=== PATIENT | female | born 1950 | race Caucasian/White ===

== ENCOUNTER 2018-07-28 20:39 | Inpatient (IN) ==
[2018-07-29] MEDS ORDERED: *HR* Dextrose 50 % in Water (Syg) 50 ML SYRINGE IVP PRN (04:09)
[2018-07-29] MEDS ORDERED: Dextrose Gel 15 GM/37.5 ML TUBE PO PRN ×2 (04:09)
[2018-07-29] MEDS ORDERED: Naloxone 0.4 MG/ML INJ IVP PRN (04:09)
[2018-07-29] MEDS ORDERED: D5% in Water 1,000 ML IVC PRN (04:09)
--- NOTE | 2018-07-29 04:24 | Internal Med History&Physical ---
Date of Encounter: 07/29/18 Time of Encounter: 03:30 Internal Medicine - H&P: HPI Chief complaint: toe ulcer Admitted From: Hospital to Hospital Transfer Plans for Post Hospital Care: Transfer [facility] Facility History of present illness: Ms. Armenta is a 68 year old female who presents in transfer [facility] for concerns of diabetic foot ulcer/toe ulcer. She was due to be admitted yesterday from the ER per clinical rehab liaison request. However, there were no beds available and patient did not want to wait in ER. She therefore returned back to [facility] where she resides. Her PCP sent her back to ER in [place] earlier today requesting transfer to [facility] for ongoing antibiotics and podiatry consultation. I received a call from [facility] ER requesting transfer. Once patient arrived from [place], I saw her at the bedside. She appears dry, but she is nontoxic. She denies any fevers or chills. She states she has had this toe ulcer for quite some time. She failed oral antibiotics and was due to start IV antibiotics per clinical rehab liaison request. However, she has not yet been admitted since then. She does have peripheral vascular disease and had a left BKA years ago. She is on oral diabetic agents and insulin as well. Her kidney function is impaired compared to her baseline. She denies any recent hypoglycemic episodes. Past Med Surg Social Fam HX - Past Medical History Attestation: Yes The following information was validated with the patient. Source: patient, old records reviewed Medical history: coronary artery disease, diabetes, hyperlipidemia, hypertension, myocardial infarction, peripheral artery disease, thyroid disease, TIA Psychiatric history: depression - Past Surgical History Surgical History: appendectomy, carotid endarterectomy, hysterectomy, other Additional surgical history: LBKA - Social History Smoking Status: Former smoker Smokeless Tobacco Status: No Alcohol use: none Drug use: none Current living situation: [facility] Recent Out of Country Travel Within the Last 8 Weeks: No Exposure or Possible Exposure to Illness During Travel: No - Family History Mother Adopted: No Family Member Ethnicity: Non- Living Status: Hx Family Cardiac Disorders: Yes Hx Family Respiratory Disorders: No Hx Family Cancer: No Hx Family GI Disorders: Yes (Diverticulosis) Hx Family Endocrine Disorder: No Hx Family Neuromuscular Disorders: No Hx Family Neurologic Disorders: No Hx Family HEENT Disorders: No Hx Family Autoimmune Disorders: No Internal Medicine - H&P: Meds Apixaban [Eliquis] 5 mg PO BID tablet 07/02/15 [Rx] Gabapentin [Neurontin] 100 mg PO TID #30 capsule 07/02/15 [Rx] Fluticasone Propionate Nasal [Flonase] 2 spray NS BID 10/16/15 [History] Metoprolol [Lopressor] 50 mg PO DAILY 10/16/15 [History] Folic Acid 1 tab PO DAILY #30 tablet 11/14/15 [Rx] Acetaminophen [Non-Aspirin] 650 mg PO Q4H PRN 05/29/16 [History] Acetaminophen [Acetaminophen ER] 650 mg PO HS 09/17/16 [History] Allopurinol [Zyloprim 300 MG] 300 mg PO DAILY 09/17/16 [History] Escitalopram [Lexapro] 5 mg PO DAILY 09/17/16 [History] Ferrous Sulfate [Iron] 325 mg PO DAILY 09/17/16 [History] GlipiZIDE XL (24 HR) [Glucotrol XL] 20 mg PO 0800 09/17/16 [History] Atorvastatin [Lipitor] 40 mg PO HS 03/24/17 [History] Cholecalciferol (Vitamin D3) [Vitamin D] 50,000 unit PO Q14D 03/24/17 [History] Potassium Chloride [Klor-Con Sprinkle] 10 meq PO DAILY 03/24/17 [History] Amlodipine Besylate 5 mg PO DAILY 06/23/17 [History] Bisacodyl [Dulcolax] 10 mg PO DAILY PRN 09/22/17 [History] Insulin DETEMIR [Levemir] 10 unit SQ HS 09/22/17 [History] Ipratropium/Albuterol Neb [Duoneb] 3 ml IH QID PRN 09/22/17 [History] Allopurinol [Zyloprim 100 MG] 100 mg PO DAILY 03/29/18 [History] Furosemide [Lasix] 80 mg PO BID 03/29/18 [History] Levothyroxine [Synthroid] 112 mcg PO DAILY 03/29/18 [History] Multivitamin,Stress Formula/Zn [Stress B with Zinc Tablet] 1 each PO DAILY 03/29/18 [History] Spironolactone [Aldactone] 25 mg PO DAILY 03/29/18 [History] Allergy/AdvReac Type Severity Reaction Status Date / Time Penicillins [PCN] Allergy Rash Verified 03/29/18 15:07 - Constitutional Constitutional: fatigue, weakness, no chills, no fever(s), no night sweats - EENT Eyes: no blurry vision, no change in vision Ears: no ear pain, no tinnitus Nose, mouth and throat: no nasal congestion, no sore throat - Cardiovascular Cardiovascular ROS IM: no chest pain, no dyspnea - Respiratory Respiratory: no cough, no chest congestion, no excessive phlegm production, no change in phlegm color - Gastrointestinal Gastrointestinal: no abdominal pain, no diarrhea, no hematemesis, no hematochezia, no melena, no nausea, no vomiting - Genitourinary Genitourinary: no dysuria, no flank pain, no hematuria - Musculoskeletal Musculoskeletal ROS IM: arthralgias, no back pain - Integumentary Integumentary IM: skin ulcer (right 2nd toe), no rash, no jaundice - Neurological Neurological ROS: no dizziness, no focal weakness, no frequent falls, no headache(s) - Psychiatric Psychiatric: no anxiety, no depression - Endocrine Endocrine IM: no polydipsia, no polyphagia, no polyuria - Allergic/Immunologic Allergic/Immunologic: no GI upset with certain foods - Constitutional General appearance: Present: cooperative, A&O X 3, pleasant, no acute distress, answers questions appropriately Exam: looks dry - Head Head exam: Present: atraumatic, normal inspection - Eye Eye exam: Present: EOMI, PERRL. Absent: scleral icterus Pupils: Present: normal accommodation - ENT ENT exam: Present: mucous membranes dry, normal exam, normal oropharynx - Neck Neck exam general surgery: Present: full ROM, supple. Absent: tenderness, nuchal rigidity, thyromegaly - Respiratory Respiratory exam: Present: CTAB. Absent: chest wall tenderness, rales, rhonchi, wheezes - Cardiovascular Cardiovascular exam: Present: distant heart sounds, +S1, +S2. Absent: diastolic murmur, systolic murmur - GI/Abdominal GI/Abdominal exam: Present: normal bowel sounds, soft. Absent: guarding, hepatomegaly, mass, rebound, splenomegaly, tenderness - Extremities Exam Extremities exam: Present: full ROM, warm, radial pulses palpable and symmetrical. Absent: calf tenderness, normal capillary refill Additional comments: left/toe dressed and wrapped - Back Exam Back exam: Absent: CVA tenderness (L), CVA tenderness (R) - Neurological Exam Neurological exam: Present: alert, CN II-XII intact, oriented X3 Additional comments: decreased sensation in both feet -- chronic (neuropathy) - Psychiatric Psychiatric exam: Present: normal affect, normal mood - Skin Skin exam: Present: dry, intact, warm Internal Med - H&P Results - Labs Labs: I reviewed her labs from [facility] they include the following: WBC 13.7 Hemoglobin 13.0 Hematocrit 39.3 Platelet count 340 PT 21.1 INR 1.9 PTT 44.1 Sodium 130 Potassium 3.9 Chloride 93 Carbon dioxide 26 BUN 51 Creatinine 2.12 - Diagnostic Studies Other Images Additional comments: Toe xray -- soft tissue swelling right 2nd toe - Assessment and plan (1) Toe ulcer due to DM Current Visit: Yes Status: Acute Assessment and plan: 1. Will order blood and wound cultures. 2. Will place on IV Zyvox and Levaquin. 3. Consult podiatry. 4. May need MRI imaging. Qualifiers: Diabetes mellitus type: type 2 Laterality: right Non-pressure ulcer stage: unspecified non-pressure ulcer stage Qualified Code(s): E11.621 - Type 2 diabetes mellitus with foot ulcer; L97.519 - Non-pressure chronic ulcer of other part of right foot with unspecified severity (2) BRET (acute kidney injury) Current Visit: Yes Status: Acute Assessment and plan: 1. Will hydrate with IVF and old diuretics for now. 2. Monitor renal function and consult nephrology if fails to improve. (3) Diabetes mellitus, type 2 Current Visit: Yes Status: Chronic Assessment and plan: 1. Hold oral home meds. 2. Will place on SSI and resume basal insulin once meds verified. 3. Monitor glucose and adjust dosing as necessary. 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 No active angina. 2. Will place on telemetry and order baseline EKG. 3. Continue home meds as appropriate. Qualifiers: Coronary Disease-Associated Artery/Lesion type: [place] artery [place] vs. transplanted heart: [place] heart Associated angina: without angina Qualified Code(s): I25.10 - Atherosclerotic heart disease of [place] coronary artery without angina pectoris (5) DVT prophylaxis Current Visit: Yes Status: Acute Assessment and plan: 1. Heparin SQ.
[2018-07-29] MEDS ORDERED: Levofloxacin 750 MG/150 ML 750 MG/150 ML BAG IVPB SCH (05:00)
[2018-07-29 05:35] LABS: Basophils # 0.2 K/mcL (0.0-0.2); Basophils % 1.2 %; Eosinophils # 0.6 K/mcL (0.0-0.6); Eosinophils % 4.6 %; Hematocrit 35.9 % (35.3-44.9); Hemoglobin 11.5 g/dL (11.5-15.4); Immature Granulocytes % 1.9 % (0-4); Lymphocytes % 7.7 %; Mean Corpuscular Volume 96.8 fL (83.0-100.0); Mean Platelet Volume 12.1 fL (9.4-12.4); Monocytes # 0.8 K/mcL (0.0-1.3); Monocytes % 5.7 %; Neutrophils # 10.6 K/mcL (1.6-8.9); Platelet Count 303 K/mcL (140-400); Red Blood Count 3.71 M/mcL (3.82-4.97); Red Cell Distribution Width 15.3 % (11.5-14.5); Segmented Neutrophils % 78.9 %
[2018-07-29] MEDS: 0.9 % Sodium Chloride 1,000 ML IVC SCH ×2 (05:41→16:32)
[2018-07-29 05:43] LABS: INR 1.9; Prothrombin Time 20.9 Seconds (9.4-12.1)
[2018-07-29 05:46] LABS: Activated Partial Thrombo Time 40.6 Seconds (26.0-36.0)
[2018-07-29 06:48] LABS: Albumin 3.3 g/dL (3.5-5.7); Albumin/Globulin Ratio 0.9 (1.1-2.2); Bilirubin,Total 0.4 mg/dL (0.3-1.0); Calcium 9.5 mg/dL (8.6-10.3); Globulin 3.5 g/dL (2.4-3.5); Magnesium 2.3 mg/dL (1.6-2.6); Potassium 3.6 mEq/L (3.5-5.1); Total Protein 6.8 g/dL (6.4-8.9)
[2018-07-29] MEDS: *HR* Heparin 5,000 UNIT/ML VIAL SQ SCH ×2 (06:50→18:28)
--- NOTE | 2018-07-29 07:55 | Internal Med Progress Note ---
<Maria L Baltazar - Last Filed: 07/29/18 13:57> Hospitalist Progress Note - Encounter Date of Encounter: 07/29/18 - Exam Vitals: Temp Pulse Resp BP Pulse Ox 98.3 F 63 14 112/66 94 07/29/18 10:16 07/29/18 10:16 07/29/18 10:16 07/29/18 10:16 07/29/18 10:16 - Assessment and Plan (1) DVT prophylaxis Current Visit: Yes Status: Acute (2) BRET (acute kidney injury) Current Visit: Yes Status: Acute (3) CAD (coronary artery disease) Current Visit: Yes Status: Chronic (4) Diabetes mellitus, type 2 Current Visit: Yes Status: Chronic (5) Toe ulcer due to DM Current Visit: Yes Status: Acute - Time Spent with Patient Total time spent is greater than 50% in coordination of care (as documented) at patient's floor/unit and/or counseling patient: Internal Medicine: Result - Labs CBC & Chem 7: 07/29/18 05:14 07/29/18 05:14 Labs: Short CBC 07/29/18 Range/Units 05:14 WBC 13.4 H (4.3-11.1) K/mcL Hgb 11.5 D (11.5-15.4) g/dL Hct 35.9 (35.3-44.9) % Plt Count 303 (140-400) K/mcL Neutrophils # 10.6 H (1.6-8.9) K/mcL BMP 07/29/18 05:14 Sodium 134 L Potassium 3.6 Chloride 98 Carbon Dioxide 25 BUN 52 H Creatinine 1.97 H Glucose 135 H Calcium 9.5 Liver Function 07/29/18 Range/Units 05:14 Total Bilirubin 0.4 (0.3-1.0) mg/dL AST 16 (13-39) Units/L ALT 14 (7-52) Units/L Alkaline Phosphatase 87 (34-104) Units/L Albumin 3.3 L (3.5-5.7) g/dL - ABG Interpretation ABG results: PT/INR, D-dimer PT 20.9 Seconds (9.4-12.1) H 07/29/18 05:14 Consult Discharge Plan - Plan Referrals: NONE,PCP [Primary Care Provider] - - Attending Attestation The history, physical exam, and medical decision making was performed by medical student Kerri either while I was physically present and actively involved or I personally re-performed the exam and medical decision making. I have verified the accuracy of the medical student's documentation with regards to the history, physical exam findings, and medical decision making. Ms Armenta has pmhx CAD, DM, HTN, Hypothyroidism and presented with diabetic foot/toe ulcer refractory to outpt treatment She is admitted for toe ulcer/cellulitis RLE and iv abx awake, no pain in foot/toe/leg. denies fevers, chills. she is unaware of drainage from wound but was told by staff it looked like pus. Clean dry dressing now in place. no nausea, emesis. She is unaware of any home meds. gen- alert, awake,appears stated age eyes- pupils equal round cv- reg rate and rhythm, normal s1,s2, no murmurs appreciated, no le edema, warm extremities, palpable RLE pulses, LLE has BKA and cannot assess lungs- ctabl, no wheezing, rhonchi or crackles, normal resp effort on ra abd- soft, non tender, non distended, + bs skin: RLE dressing c/d/i, mild erythmea right tyler, no pain to palpation, no increased warmth neuro- AAOx3, CN grossly intact, no focal deficits Toe Ulcer due to DM/RLE cellullitis- blood and wound cxs pending, podiatry consult pending, will renal dose vanc and begin cefepime as we have received updated info as to outpt med trials, given hx pvd check CODY tpo assess if contri buting Leukocytosis 13.4 suspected 2/2 toe ulcer/cellulitis- abx as above and cont to monitor, bl and wound cxs pending Elevated Creat 1.97 and uk at this time if bret vs bret on ckd vs ckd given review of sparse outpt records this past year- hold diuretic (lasix 80 mg bid and aldactone 25 mg daily), IVF given bun/creat and monitor, renal dose abx, check ua DM- SSI and pharmacy to confirmed home meds- appears to be on SSI + Levemir 30 units qhs, A1C 8.9, bs currently at goal with SSI CAD hx- confirmed home meds: not on asa, cont statin, toprol xl, eliquis held awaiting podiatry rec today, not on acei/arb at home ? related to kidney function Hypothyroidism-cont synthroid vte ppx sqh <Maninder Manning R - Last Filed: 07/29/18 14:32> Hospitalist Progress Note - Encounter Date of Encounter: 07/29/18 Time of Encounter: 08:30 - Subjective Interval History: Mrs. Armenta is a 68 YO F who presented to the ED on 07/27/18 for R toe ulcer. Her PMHx includes CAD, TIIDM, HTN, hyperlipidemia, AL, peripheral artery disease, BKA and TIA. She presented to the ED on 07/27/18 from [facility] because her PCP wanted her to receive IV antibiotics for an R foot ulcer on her 2nd metatarsal after 2 week failure of PO antibiotics. She was set to be admitted on 07/27/18 but left the ED because a bed wasn't available. She returned to the ED 07/28/18 for admission and IV Zyvox and Levoquin. She is set to see the resident care manager rn 07/29/18She states she hasn't had any pain of toe, foot or leg. She denies fever, chills, headaches, SOB, chest pain, nausea, emesis, diarrhea, or constipation. - Exam Vitals: Temp Pulse Resp BP Pulse Ox 97.9 F 61 15 103/63 94 07/29/18 06:21 07/29/18 06:21 07/29/18 06:21 07/29/18 06:21 07/29/18 06:21 Exam: Gen: Alert and oriented x3 in no acute distress HEENT: Head normocephalic, atraumatic; EOMI, PERRL CV: RRR no murmurs, gallops or rubs Resp: CTA traci no wheezes, rhonchi or rales GI: BS x 4 soft non-tender on palpation Extremities: below knee amputation of the L leg. R leg erythema and warm below the R knee down to the R foot. +1 pitting edema of the R leg. R post. tibial pulse intact, traci radial artery pulses intact. Skin: Dry with eccymosis on R and L forearms. No rashes noted. R 2nd metatarsal lateral erythema ulcer noted. Looks to be more superficial and is about the width of a quarter. Warm to touch around the area up to a few inches below R knee. - Assessment and Plan (1) Toe ulcer due to DM Current Visit: Yes Status: Acute Assessment and Plan: - Tried 2 week course of oral antibiotics with no improvement - Denies pain, fever, chills - On PE Ulcer is on lateral aspect of 2nd metatarsal on R foot, roughly the width of a quarter. Swelling with erythema and warmth up to knee on R leg. - Post. Tibial pulse present dorsalis pedis not palpated - Last HA1c was 05/04 and was 7.4 - Order 2x blood culture 5AM 07/29/18; results pending - Ordered wound culture 07/29/18; results pending - Plan: Podiatry consulted, continue to treat empirically with IV Levaquin in Zyvox pending blood culture. (2) BRET (acute kidney injury) Current Visit: Yes Status: Acute Assessment and Plan: - Patient denies past history of kidney disease - Cr today is 1.97 DOWN from 07/28/18 (2.12) - Patient has unconfirmed med list. Not sure if she takes 80po BID lasix? Contact has been made for med list update - Past Cr level from 2018 was as low as (0.92 on 09/22/18) had a 1.7 Cr in 04/06 - Elevated Cr last few visits: CKD? AKD on CKD? or just AKD? Need to work up - Plan: Work up for AKD, ordered UA, continue IV fluids due to BUN:Cr ratio >20; monitor Cr qAM; Renal dose antibiotics; Getting HA1C to determine how well di abetes has been controlled and the possible impact on kidney function. (3) Diabetes mellitus, type 2 Current Visit: Yes Status: Chronic Assessment and Plan: Insulin dependent TIIDM Home meds: Insulin DETEMIR, glipizide xl - Last HA1C was 05/04 7.4 - Plan: Ordered HA1C, use sliding scale insulin during inpatient stay. Maintain diabetic diet and monitor glucose (4) Peripheral vascular disease Current Visit: No Status: Acute Assessment and Plan: - Patient has a warm and erythemitis R leg - Left BKA - Post tibial pulse palpated on R leg but no dorsalis pedis palpated - Plan: Ordered CODY on her R leg due to PHx of PVD, CAD, and non palpable dorsalis pedis. (5) CAD (coronary artery disease) Current Visit: Yes Status: Chronic Assessment and Plan: CAD diagnosed in 2014 Home Meds: Furosemide, amlodipine, apixaban, atorvastatin Patient denies SOB or chest pain Placed on cardiac monitoring Plan: Place on cardiac diet and monitor for cardiac symptoms (6) DVT prophylaxis Current Visit: Yes Status: Acute Assessment and Plan: Subq Heparin 5000 units [id number] DVT Prophylaxis: Sq Heparin - Time Spent with Patient Total time spent is greater than 50% in coordination of care (as documented) at patient's floor/unit and/or counseling patient: 25 - 35 minutes Plan of Care Discussed with: patient Internal Medicine: Result - Labs CBC & Chem 7: 07/29/18 05:14 07/29/18 05:14 Labs: Short CBC 07/29/18 Range/Units 05:14 WBC 13.4 H (4.3-11.1) K/mcL Hgb 11.5 D (11.5-15.4) g/dL Hct 35.9 (35.3-44.9) % Plt Count 303 (140-400) K/mcL Neutrophils # 10.6 H (1.6-8.9) K/mcL BMP 07/29/18 05:14 Sodium 134 L Potassium 3.6 Chloride 98 Carbon Dioxide 25 BUN 52 H Creatinine 1.97 H Glucose 135 H Calcium 9.5 Liver Function 07/29/18 Range/Units 05:14 Total Bilirubin 0.4 (0.3-1.0) mg/dL AST 16 (13-39) Units/L ALT 14 (7-52) Units/L Alkaline Phosphatase 87 (34-104) Units/L Albumin 3.3 L (3.5-5.7) g/dL - ABG Interpretation ABG results: PT/INR, D-dimer PT 20.9 Seconds (9.4-12.1) H 07/29/18 05:14 <Maria L Baltazar - Last Filed: 07/29/18 13:57> (3) CAD (coronary artery disease) Qualifiers: Coronary Disease-Associated Artery/Lesion type: [place] artery [place] vs. transplanted heart: [place] heart Associated angina: without angina Qualified Code(s): I25.10 - Atherosclerotic heart disease of [place] coronary artery without angina pectoris (4) Diabetes mellitus, type 2 Qualifiers: Diabetes mellitus correction insulin use: with communications tower climber use Diabetes mellitus complication status: with circulatory complication Diabetes mellitus complication detail: with other circulatory complications Qualified Code(s): E11.59 - Type 2 diabetes mellitus with other circulatory complications; Z79.4 - nursing teacher (current) 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 of insulin (5) Toe ulcer due to DM Qualifiers: Diabetes mellitus type: type 2 Laterality: right Non-pressure ulcer stage: unspecified non-pressure ulcer stage Qualified Code(s): E11.621 - Type 2 diabetes mellitus with foot ulcer; L97.519 - Non-pressure chronic ulcer of other part of right foot with unspecified severity <Maninder Manning R - Last Filed: 07/29/18 14:32> (1) Toe ulcer due to DM Qualifiers: Diabetes mellitus type: type 2 Laterality: right Non-pressure ulcer stage: unspecified non-pressure ulcer stage Qualified Code(s): E11.621 - Type 2 diabetes mellitus with foot ulcer; L97.519 - Non-pressure chronic ulcer of other part of right foot with unspecified severity (3) Diabetes mellitus, type 2 Qualifiers: Diabetes mellitus communications tower 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 transplanted heart: [place] heart Associated angina: without angina Qualified Code(s): I25.10 - Atherosclerotic heart disease of [place] coronary artery without angina pectoris
[2018-07-29] MEDS: Insulin LISPRO 300 UNITS/3 ML VIAL SQ SCH ×4 (09:56→21:12)
[2018-07-29 12:14] LABS: Estimated Average Glucose 209 mg/dl; Hemoglobin A1C 8.9 %
--- NOTE | 2018-07-29 14:41 | Podiatry Consult Note ---
Date of Encounter: 07/29/18 Time of Encounter: 14:39 Assessment and Plan (1) Cellulitis Current visit: Yes Status: Acute Assessment: #1. Cellulitis of the right second toe foot #2. Leukocytosis Plan: #1 agree with present antibiotic therapy given her renal impairment Qualifiers: Site of cellulitis: extremity Site of cellulitis of extremity: toe Laterality: right Qualified Code(s): L03.031 - Cellulitis of right toe (2) Toe ulcer due to DM Current visit: Yes Status: Acute Assessment: #1 ulceration toe #2 right foot with dry eschar deep tissue injury undetermined unstageable #2 multiple comorbidities as outlined in history Plan: #1 agree with present antibiotic therapy #2 we will begin localized wound care to address debride the wound enzymatically #3 imaging studies to determine if there is any evidence osteomyelitis #4 offload right limb in bed to avoid pressure ulcerations #5 order noninvasive vascular studies if they have not been performing the last 6 months Qualifiers: Diabetes mellitus type: type 2 Laterality: right Non-pressure ulcer stage: unspecified non-pressure ulcer stage Qualified Code(s): E11.621 - Type 2 diabetes mellitus with foot ulcer; L97.519 - Non-pressure chronic ulcer of ot her part of right foot with unspecified severity History of Present Illness Chief complaint: Ulcer with cellulitis foot HPI: Ms. Armenta is a 68 year old female admitted for toe ulcer with right foot cellulitis. Patient with multiple comorbidities as outlined in history. Presently he is nontoxic. No evidence of chest pain nausea vomiting fever chills. She does have leukocytosis. Patient with at least for 6 week history of wound to the second toe right foot with area dry eschar will be considered pregangrenous with ascending localized cellulitis over the second toe and second metatarsal extending to the midfoot. She is history of below-knee amputation left she is considered high risk given her medical history please see history tab. Past Med Surg Social Fam HX - Past Medical History Source: patient Medical history: coronary artery disease, diabetes, hyperlipidemia, hypertension, myocardial infarction, peripheral artery disease, thyroid disease, TIA Psychiatric history: depression - Past Surgical History Surgical History: appendectomy, carotid endarterectomy, hysterectomy, other Additional surgical history: LBKA - Social History Smoking Status: Former smoker Smokeless Tobacco Status: No Alcohol use: none Drug use: none - Family History Mother Adopted: No Family Member Ethnicity: Non- Living Status: Hx Family Cardiac Disorders: Yes Hx Family Respiratory Disorders: No Hx Family Cancer: No Hx Family GI Disorders: Yes (Diverticulosis) Hx Family Endocrine Disorder: No Hx Family Neuromuscular Disorders: No Hx Family Neurologic Disorders: No Hx Family HEENT Disorders: No Hx Family Autoimmune Disorders: No Medications and Allergies Apixaban [Eliquis] 5 mg PO BID tablet 07/02/15 [Rx] Folic Acid 1 tab PO DAILY #30 tablet 11/14/15 [Rx] Acetaminophen [Non-Aspirin] 650 mg PO HS 05/29/16 [History] Allopurinol [Zyloprim 300 MG] 300 mg PO QAM 09/17/16 [History] Ferrous Sulfate [Iron] 325 mg PO DAILY 09/17/16 [History] GlipiZIDE XL (24 HR) [Glucotrol XL] 20 mg PO 0800 09/17/16 [History] Atorvastatin [Lipitor] 40 mg PO HS 03/24/17 [History] Cholecalciferol (Vitamin D3) [Vitamin D] 50,000 unit PO Q14D 03/24/17 [History] Bisacodyl [Dulcolax] 10 mg PO DAILY PRN 09/22/17 [History] Ipratropium/Albuterol Neb [Duoneb] 3 ml IH QID PRN 09/22/17 [History] Allopurinol [Zyloprim 100 MG] 100 mg PO HS 03/29/18 [History] Furosemide [Lasix] 80 mg PO BID 03/29/18 [History] Spironolactone [Aldactone] 25 mg PO DAILY 03/29/18 [History] Escitalopram Oxalate 5 mg PO DAILY 07/29/18 [History] Gabapentin [Neurontin] 100 mg PO TID 07/29/18 [History] Insulin DETEMIR [Levemir Flextouch] 30 unit SQ HS 07/29/18 [History] Insulin LISPRO [HumaLOG] 2 - 8 units SQ TIDWM 07/29/18 [History] L. Acidophilus/Pectin, [place] [Acidophilus Capsule] 1 cap PO BID 07/29/18 [History] Levothyroxine Sodium 88 mcg PO DAILY 07/29/18 [History] Metoprolol Succinate [Toprol Xl] 50 mg PO DAILY 07/29/18 [History] Potassium Chloride [K-Tab ER] 10 meq PO DAILY 07/29/18 [History] amLODIPine [Norvasc] 5 mg PO DAILY 07/29/18 [History] levoFLOXacin [Levaquin] 250 mg PO DAILY 07/29/18 [History] Allergy/AdvReac Type Severity Reaction Status Date / Time Penicillins [PCN] Allergy Rash Verified 07/29/18 13:41 All Systems Reviewed: The remainder of the systems were reviewed and are negative. No chest pain nausea vomiting fever chills. No bladder or bladder dysfunction. Patient does have diminished sensation to the right foot and leg. - Constitutional Constitutional: as per HPI - Cardiovascular Cardiovascular: other (Ulcer toe #2 right foot) - Musculoskeletal Musculoskeletal: other (Amputation Left Below-Knee) Physical Exam - Constitutional Vitals: Temp Pulse Resp BP Pulse Ox 98.5 F 63 14 110/67 96 07/29/18 14:23 07/29/18 14:23 07/29/18 14:23 07/29/18 14:23 07/29/18 14:23 General appearance: cooperative, obese - Extremities Exam Extremities exam: Present: pedal edema - Expanded Lower Extremities Exam Foot/Toe exam: Present: erythema (Ulceration dorsal medial aspect of PIPJ toe #2 right foot with dry eschar attached. Global erythema of the right second toe.) Neuro vascular tendon exam: Present: abnormal 2-point discrimination, decreased fine/light touch (Absent protective sensation epicritic sensation vibratory sensation from toes to tibia right. Pedal pulses DP 0/4 PT 2/4 Rebound time proximally 3 seconds distal aspect of right great toe) Gait: Present: not tested/not observed (Left below-knee amputation) - Neurological Exam Neurological exam: Present: oriented X3 - Psychiatric Psychiatric exam: Present: anxious Additional comments: Patient voices concern about wound and its implications considering she has a below-knee amputation left side - Vascular Capillary Refill: less than 3 seconds - Ankle & Foot Tingling/Numbness: foot, toes Results - Labs Result Diagrams: 07/29/18 05:14 07/29/18 05:14 Labs: Abnormal lab results WBC 13.4 K/mcL (4.3-11.1) H 07/29/18 05:14 RBC 3.71 M/mcL (3.82-4.97) L 07/29/18 05:14 RDW 15.3 % (11.5-14.5) H 07/29/18 05:14 Neutrophils # 10.6 K/mcL (1.6-8.9) H 07/29/18 05:14 PT 20.9 Seconds (9.4-12.1) H 07/29/18 05:14 APTT 40.6 Seconds (26.0-36.0) H 07/29/18 05:14 Sodium 134 mEq/L (136-145) L 07/29/18 05:14 BUN 52 mg/dL (8-23) H 07/29/18 05:14 Creatinine 1.97 mg/dL (0.60-1.20) H 07/29/18 05:14 Est GFR ( Amer) 31 (> 60) L 07/29/18 05:14 Est GFR (Non-Af Amer) 25 (> 60) L 07/29/18 05:14 Glucose 135 mg/dL (70-105) H 07/29/18 05:14 POC Glucose 158 mg/dL (70-99) H 07/29/18 11:11 Hemoglobin A1c 8.9 % (-5.6) H 07/29/18 05:03 Albumin 3.3 g/dL (3.5-5.7) L 07/29/18 05:14 Albumin/Globulin Ratio 0.9 (1.1-2.2) L 07/29/18 05:14 H & H 07/29/18 Range/Units 05:14 Hgb 11.5 D (11.5-15.4) g/dL Hct 35.9 (35.3-44.9) % All other labs normal. - Diagnostic results Ankle/Foot x-ray: pending Consult Discharge Plan - Plan Referrals: NONE,PCP [Primary Care Provider] -
[2018-07-29 14:42] LABS: Bilirubin,Urine Negative (Negative); Blood,Urine Small (Negative); Color,Urine Yellow (Yellow); Glucose,Urine (UA) Normal (Normal); Ketones,Urine Negative (Negative); Leukocyte Esterase,Urine Large (Negative); Nitrite,Urine Positive (Negative); PH,Urine 5.5 pH Units (5.0-8.0); Protein,Urine Negative (Neg-Trace); Specific Gravity,Urine 1.017 (1.010-1.025); Urobilinogen,Urine Normal (Normal)
[2018-07-29 14:44] LABS: Bacteria,Urine Many per hpf (None-Few); Clarity,Urine Cloudy (Clear); Hyaline Casts,Urine None Seen per lpf (None-Few); RBC,Urine 0-3 per hpf (0-3); Squamous Epithelial Cell,Urine Many per lpf (None-Few); WBC,Urine TNTC per hpf (0-3)
[2018-07-29] MEDS ORDERED: Vancomycin 1,750 MG in 0.9 % Sodium Chloride 250 ML IVPB SCH (15:00)
[2018-07-29] MEDS: Cefepime HCl 2,000 MG in Water for inj. (sterile) 20 ML 20 ML IVP SCH (16:32)
[2018-07-29] MEDS: Acetaminophen 325 MG TABLET PO PRN (21:19)
[2018-07-30] MEDS ORDERED: *HR* HYDROcodone/Acet 5/325 mg TABLET PO ONE (04:05)
[2018-07-30] MEDS: *HR* Heparin 5,000 UNIT/ML VIAL SQ SCH (04:54)
[2018-07-30 05:12] LABS: Basophils # 0.1 K/mcL (0.0-0.2); Basophils % 1.3 %; Eosinophils # 0.4 K/mcL (0.0-0.6); Eosinophils % 4.4 %; Hematocrit 33.2 % (35.3-44.9); Hemoglobin 10.6 g/dL (11.5-15.4); Immature Granulocytes % 2.1 % (0-4); Lymphocytes % 10.4 %; Mean Corpuscular HGB Conc 31.9 g/dL (31.6-35.5); Mean Corpuscular Hemoglobin 31.2 pg (28.0-33.3); Mean Corpuscular Volume 97.6 fL (83.0-100.0); Mean Platelet Volume 11.9 fL (9.4-12.4); Monocytes # 0.7 K/mcL (0.0-1.3); Monocytes % 7.1 %; Neutrophils # 7.4 K/mcL (1.6-8.9); Platelet Count 292 K/mcL (140-400); Red Cell Distribution Width 15.6 % (11.5-14.5); Segmented Neutrophils % 74.7 %
[2018-07-30 05:30] LABS: Calcium 8.7 mg/dL (8.6-10.3); Potassium 3.5 mEq/L (3.5-5.1)
[2018-07-30] MEDS ORDERED: Ipratropium/Albuterol Neb 3 ML IH PRN (08:39)
[2018-07-30] MEDS ORDERED: Cefepime HCl 2,000 MG in Water for inj. (sterile) 20 ML 20 ML IVP SCH (09:00)
[2018-07-30] MEDS: Insulin LISPRO 300 UNITS/3 ML VIAL SQ SCH ×4 (09:06→22:11)
--- NOTE | 2018-07-30 09:33 | Internal Med Progress Note ---
<KerriManinder R - Last Filed: 07/30/18 14:40> Hospitalist Progress Note - Encounter Date of Encounter: 07/30/18 Time of Encounter: 08:40 - Subjective Interval History: Mrs. Armenta is a 68 YO F who presented to the ED on 07/27/18 for R toe ulcer. Patient was sitting up in bed eating breakfast when I saw her. She states shes feeling alright today. She doesn't care for her the pressure ulcer boot she has to wear, she states its uncomfortable and clunky. She denies any headaches, SOB, chest pain, belly pain, nausea, vomiting, diarrhea or constipation. Patient states that her eliquis is for her stents she had placed a few years ago. On review of her chart it looks like she is on the eliquis for a - flutter with no DVT or PE in the past. Currently is on subq heparin for DVT prophalaxysis. The preliminary CODY showed no pedal pulses with the final read not complete yesterday. A wound culture conducted yesterday grew a gram positive cocci with sensitivity pending. Podiatry consulted - Exam Vitals: Temp Pulse Resp BP Pulse Ox 97.6 F 66 15 136/57 99 07/30/18 06:18 07/30/18 06:18 07/30/18 06:18 07/30/18 06:18 07/30/18 06:18 Exam: Gen: Alert and Oriented x3 in no acute distress, HEENT: Normocephalic atraumatic; EOMI, PERRL; CV: RRR no murmurs, gallops or rubs Resp: CTA traci without wheezing rhonchi or rales GI: Soft non-tender to palpation Extremities: L BKA, R leg with erythema up R ankle to below knee. Dopler of post tib. had faint sounds on R foot. Dorsalis pedis was not heard with dopler on R foot. Radial pulses palpable bilaterally Skin: R leg erythema with warmth up to knee cap, skin intact, ecchymosis r and l wrist; dry without lesions - Assessment and Plan (1) Osteomyelitis Current Visit: Yes Status: Acute Assessment and Plan: - Consult from podiatry: their assessment was 2nd toe right foot dry eschar deep tissue injury with cellulitis of the RLE. Stated that antibiotics were appropriate for treatment at the time. Instructed to offload limb. - Patient wound culture came back as gram positive cocci with sensitivity pending - Patient currently on emperical treatment IV cefepime and vancomycin - X- ray on 07/29/18 showed focal erosion suggesting osteomyelitis in the distal tuft of the 2nd toe medially, with bony defect in plantar surface of the calcaneus posteriorly - CODY on 07/29/18 preliminary results showed no ankle pulses, waiting for final report - Patient had a vascular consult in 06/06: Patient was instructed that she had poor blood flow to the RLE and gave two options, angiography or above knee amputation and she wasn't a great surgical candidate due to PMHx. At that time she denied R AKA and was told to f/u if need be - Plan: Consult vascular surg; continue emperical treatment with cefepime and vancomycin until sensitivity of wound culture returns. Continue pressure unload ing boot on patient. (2) Cellulitis of leg, right Current Visit: Yes Status: Acute Assessment and Plan: - 07/29/18 patient had an erythemitis R LE below the knee due to R 2nd toe ulcer and osteomyelitis - Patient grew gram positive cocci on R end toe ulcer - Patient currently on IV cefepime and vancomycin until culture sensitivity returns - Patient has no complaints of R LE pain - 07/30/18: patient R LE looks less erythemitis on PE then yesterday. Still warm to touch - Plan: Continue empirical treatment with cefepime and vancomycin while waiting culture sensitivity. Renal dose antibiotics due to BRET (3) Toe ulcer due to DM Current Visit: Yes Status: Acute Assessment and Plan: - Consult from podiatry: their assessment was 2nd toe right foot dry eschar deep tissue injury with cellulitis of the RLE. Stated that antibiotics were appropriate for treatment at the time. Instructed to offload limb. - Patient wound culture came back as gram positive cocci with sensitivity pending - Patient currently on emperical treatment IV cefepime and vancomycin - X- ray on 07/29/18 showed focal erosion suggesting osteomyelitis in the distal tuft of the 2nd toe medially, with bony defect in plantar surface of the calcaneus posteriorly - CODY preliminary results showed no ankle pulses - Patient had a vascular consult in 06/06: Patient was instructed that she had no blood flow to the RLE and gave two options, angiography or above knee amputation and she wasn't a great surgical candidate. At the time she denied R AKA and was told to f/u if need be - Plan: Continue diabetic diet. Podiatry treating wound. Consult vascular surg; continue emperical treatment with cefepime and vancomycin until sensitivity of wound culture returns. Continue pressure unloading boot on patient (4) BRET (acute kidney injury) Current Visit: Yes Status: Acute Assessment and Plan: - Patient denies past history of kidney disease - Past Cr level from 2018 was as low as (0.92 on 09/22/18) had a 1.7 Cr in 04/06 - Cr today was 1.51 down from 1.97 on 07/29/18 - Antibiotics switched to cefepime and vancomycin - Patient UA showed cloudy urine with positive nitrite and leukocytes - Urine culture ordered on 07/29/18 with culture pending - Patient HA1C on 07/29/18 was 8.9 - Plan: Hold lasix and follow Cr qAM. Urine culture pending, patient asymptomatic bacteria and currently on antibiotics for osteomyelitis of R toe ulcer. Culture sensitivity to unsure no bacterial resistance. Continue to renally dose antibiotics (5) Diabetes mellitus, type 2 Current Visit: Yes Status: Chronic Assessment and Plan: Insulin dependent TIIDM Home meds: Insulin DETEMIR, glipizide xl - HA1C 07/29/18 = 8.9 - Plan: Use sliding scale insulin during inpatient stay. Maintain diabetic diet and monitor glucose and kidney function (6) Peripheral vascular disease Current Visit: No Status: Acute Assessment and Plan: - Patient has a warm and erythemitis R leg - Left BKA - CODY preliminary results on 07/29/18 showed no ankle pulses - Patient had a vascular consult in 06/06: Patient was instructed that she had no blood flow to the RLE and gave two options, angiography or above knee amputation and she wasn't a great surgical candidate. At the time she denied R AKA and was told to f/u if need be - Plan: Consult vascular surg for evaluation. Patient has Osteomyelitis and without blood flow to region would be difficult to treat with IV antibiotics as well as poor surgical candiate for removal of osteomyelitis due to poor ability to heal. (7) CAD (coronary artery disease) Current Visit: Yes Status: Chronic Assessment and Plan: CAD diagnosed in 2014 Home Meds: Furosemide, amlodipine, apixaban, atorvastatin Patient states she had 4 stents placed in 2015 Patient denies SOB or chest pain Patient placed on eliquis due to a - flutter in history Placed on cardiac monitoring Plan: Restart eliquis though patient is in NSR currently, monitor for cardiac symptoms, continue home meds except hold lasix due to RBET (8) DVT prophylaxis Current Visit: Yes Status: Acute Assessment and Plan: Patient on eliquis for PMHx of a - flutter Patient has no PMHx of DVT or PE - Plan: Hold heparin sq and restart home eliquis (9) Asymptomatic bacteriuria Current Visit: Yes Status: Acute Assessment and Plan: - Patient getting evaluated for BRET - Patient had a Cr of 1.97 07/29/18 which was high for her baseline - Today patient has a Cr of 1.51 - Patient had belly pain, nausea, vomiting, fever or chills - UA was ordered 07/29/18 and showed elevated nitrites and leukocyte esterase - Urine culture pending - Plan: Patient being treated empirically with cefepime and vancomycin for R toe osteomyelitis. Urine culture and sensitivity pending to see if bacteria resistance has been established. At this time continue to monitor for symptoms of UTI as well as Cr qAM and hold off on treating UTI with any future antibiotics. DVT Prophylaxis: Restart home eliquis Hold heparin sq - Time Spent with Patient Total time spent is greater than 50% in coordination of care (as documented) at patient's floor/unit and/or counseling patient: less than 15 minutes Plan of Care Discussed with: patient Internal Medicine: Result - Labs CBC & Chem 7: 07/30/18 04:24 07/30/18 04:24 Labs: Short CBC 07/30/18 Range/Units 04:24 WBC 9.9 (4.3-11.1) K/mcL Hgb 10.6 L (11.5-15.4) g/dL Hct 33.2 L (35.3-44.9) % Plt Count 292 (140-400) K/mcL Neutrophils # 7.4 (1.6-8.9) K/mcL BMP 07/30/18 04:24 Sodium 135 L Potassium 3.5 Chloride 104 Carbon Dioxide 22 L BUN 38 H Creatinine 1.51 H Glucose 108 H Calcium 8.7 Urine 07/29/18 Range/Units 14:37 Urine Color Yellow (Yellow) Urine Clarity Cloudy A (Clear) Urine pH 5.5 (5.0-8.0) pH Units Ur Specific [place] 1.017 (1.010-1.025) Urine Protein Negative (Neg-Trace) mg/dL Urine Glucose (UA) Normal (Normal) mg/dL - ABG Interpretation ABG results: PT/INR, D-dimer PT 20.9 Seconds (9.4-12.1) H 07/29/18 05:14 - Impressions Impressions Foot X-Ray 07/29/18 14:53 IMPRESSION: 1. Possible focal erosion suggesting osteomyelitis in the distal tuft of the 2nd toe medially 2. Bony defect in the plantar surface of the calcaneus posteriorly could also represent a focal erosion. 3. The findings were sent to the Radiology Results Communication Center at 3:45 pm on 07/29/2018to be communicated to a licensed caregiver. D/ / Nawaf Sainz MD / Nawaf Sainz MD Interpreting Provider: Nawaf Sainz MD Consult Discharge Plan - Plan Referrals: NONE,PCP [Primary Care Provider] - <Maria L Baltazar - Last Filed: 07/30/18 16:49> Hospitalist Progress Note - Encounter Date of Encounter: 07/30/18 - Exam Vitals: Temp Pulse Resp BP Pulse Ox 97.9 F 70 15 127/77 97 07/30/18 13:57 07/30/18 13:57 07/30/18 13:57 07/30/18 13:57 07/30/18 13:57 - Assessment and Plan (1) DVT prophylaxis Current Visit: Yes Status: Acute (2) BRET (acute kidney injury) Current Visit: Yes Status: Acute (3) CAD (coronary artery disease) Current Visit: Yes Status: Chronic (4) Diabetes mellitus, type 2 Current Visit: Yes Status: Chronic (5) Toe ulcer due to DM Current Visit: Yes Status: Acute - Time Spent with Patient Total time spent is greater than 50% in coordination of care (as documented) at patient's floor/unit and/or counseling patient: Internal Medicine: Result - Labs CBC & Chem 7: 07/30/18 04:24 07/30/18 04:24 Labs: Short CBC 07/30/18 Range/Units 04:24 WBC 9.9 (4.3-11.1) K/mcL Hgb 10.6 L (11.5-15.4) g/dL Hct 33.2 L (35.3-44.9) % Plt Count 292 (140-400) K/mcL Neutrophils # 7.4 (1.6-8.9) K/mcL BMP 07/30/18 04:24 Sodium 135 L Potassium 3.5 Chloride 104 Carbon Dioxide 22 L BUN 38 H Creatinine 1.51 H Glucose 108 H Calcium 8.7 - ABG Interpretation ABG results: PT/INR, D-dimer PT 20.9 Seconds (9.4-12.1) H 07/29/18 05:14 - Attending Attestation The history, physical exam, and medical decision making was performed by medical student Shameliza either while I was physically present and actively involved or I personally re-performed the exam and medical decision making. I have verified the accuracy of the medical student's documentation with regards to the history, physical exam findings, and medical decision making. Ms Armenta has pmhx CAD, DM, HTN, Hypothyroidism and presented with diabetic foot/toe ulcer refractory to outpt treatment She is admitted for toe ulcer/cellulitis RLE and iv abx with imaging now sug gesting osteomyelitis awake, pain with wearing off loading boot, no n/v/fevers/chills. gen- alert, awake,appears stated age eyes- pupils equal round cv- reg rate and rhythm, normal s1,s2, no murmurs appreciated, no le edema, warm extremities, palpable RLE pulses, LLE has BKA and cannot assess lungs- ctabl, no wheezing, rhonchi or crackles, normal resp effort on ra abd- soft, non tender, non distended, + bs skin: RLE dressing c/d/i, no erythmea right tyler, no pain to palpation, no incr eased warmth neuro- AAOx3, CN grossly intact, no focal deficits Toe Ulcer due to DM/RLE cellullitis XR concerning for osteomyelitis - blood cx ngtd and wound cxs +gpc -podiatry following -given known PVD we repeated CODY which prelim read is saying no pulses and that is unchanged from her most recent CODY, as followed with vasc surg for this in past and records reviewed- will consult for further assistance/options in management of ulcer/osteo -cont vanc and cefepime -will resume home eliquis as does not appear that surgical intervention to toe is possible given her pvd status Suspected UTI, though asx- ucx gnr, awaiting sensitivities, on vanc + cefepime as above Leukocytosis resolved -suspected 2/2 toe ulcer/cellulitis and possible UTI- abx as above and cont to monitor, bl, urine and wound cxs as above Elevated Creat 1.97 and uk at this time if bret vs bret on ckd vs ckd given review of sparse outpt records this past year- improving with hold diuretic (lasix 80 mg bid and aldactone 25 mg daily), IVF , renal dose abx DM- SSI and pharmacy to confirmed home meds- appears to be on SSI + Levemir 30 units qhs, A1C 8.9, bs currently at goal with SSI CAD hx- confirmed home meds: not on asa, cont statin, toprol xl, eliquis for hx arrhythmia in past and will resume, not on acei/arb at home ? related to kidney function Hypothyroidism-cont synthroid vte ppx eliquis <Maninder Manning - Last Filed: 07/30/18 14:40> (1) Osteomyelitis Qualifiers: Osteomyelitis type: unspecified type Osteomyelitis location: foot Laterality: right Qualified Code(s): M86.9 - Osteomyelitis, unspecified (3) Toe ulcer due to DM Qualifiers: Diabetes mellitus type: type 2 Laterality: right Non-pressure ulcer stage: unspecified non-pressure ulcer stage Qualified Code(s): E11.621 - Type 2 diabetes mellitus with foot ulcer; L97.519 - Non-pressure chronic ulcer of other part of right foot with unspecified severity (5) Diabetes mellitus, type 2 Qualifiers: Diabetes mellitus termite technician insulin use: with fpc use Diabetes mellitus complication status: with circulatory complication Diabetes mellitus complication detail: with other circulatory complications Qualified Code(s): E11.59 - Type 2 diabetes mellitus with other circulatory complications; Z79.4 - FPC (current) use of insulin (7) CAD (coronary artery disease) Qualifiers: Coronary Disease-Associated Artery/Lesion type: [place] artery [place] vs. transplanted heart: [place] heart Associated angina: without angina Qualified Code(s): I25.10 - Atherosclerotic heart disease of [place] coronary artery without angina pectoris <Maria L Baltazar - Last Filed: 07/30/18 16:49> (3) CAD (coronary artery disease) Qualifiers: Coronary Disease-Associated Artery/Lesion type: [place] artery [place] vs. transplanted heart: [place] heart Associated angina: without angina Qualified Code(s): I25.10 - Atherosclerotic heart disease of [place] coronary artery without angina pectoris (4) Diabetes mellitus, type 2 Qualifiers: Diabetes mellitus termite technician insulin use: with termite technician use Diabetes mellitus complication status: with circulatory complication Diabetes mellitus complication detail: with other circulatory complications Qualified Code(s): E11.59 - Type 2 diabetes mellitus with other circulatory complications; Z79.4 - FPC (current) use of insulin (5) Toe ulcer due to DM Qualifiers: Diabetes mellitus type: type 2 Laterality: right Non-pressure ulcer stage: unspecified non-pressure ulcer stage Qualified Code(s): E11.621 - Type 2 diabetes mellitus with foot ulcer; L97.519 - Non-pressure chronic ulcer of other part of right foot with unspecified severity
[2018-07-30] MEDS: Gabapentin 100 MG CAPSULE PO SCH ×3 (11:57→23:28)
--- NOTE | 2018-07-30 14:37 | Electrocardiograph Report ---
[address] [place] [address] Test Date: 2018-07-29 Pat Name: Mirian Armenta Department: 115 Room: 3A48 Gender: F Identification And Records Commander: JANEEN : 1950 Requested By: Juventino Perez Order Number: [id number] Reading MD: Wil Staley Measurements Intervals [place] Rate: 60 P: 58 MD: 256 QRS: -63 QRSD: 118 T: -13 QT: 469 QTc: 470 Interpretive Statements SINUS RHYTHM WITH FIRST DEGREE AV BLOCK POOR R WAVE PROGRESSION INFERIOR MYOCARDIAL INFARCTION, OF INDETERMINATE AGE Electronically Signed On 07-30-2018 14:35:30 EST by Wil Staley
[2018-07-30] MEDS: Acetaminophen 325 MG TABLET PO PRN ×2 (16:20→22:13)
[2018-07-30] MEDS: Cefepime HCl 2,000 MG in Water for inj. (sterile) 20 ML 20 ML IVP SCH ×2 (16:21→17:05)
[2018-07-30] MEDS: Apixaban 5 MG TABLET PO SCH (22:12)
[2018-07-31] MEDS: Cefepime HCl 2,000 MG in Water for inj. (sterile) 20 ML 20 ML IVP SCH ×2 (06:16→17:14)
[2018-07-31 07:49] LABS: Basophils # 0.2 K/mcL (0.0-0.2); Basophils % 1.4 %; Eosinophils # 0.6 K/mcL (0.0-0.6); Eosinophils % 5.5 %; Hematocrit 36.1 % (35.3-44.9); Hemoglobin 11.6 g/dL (11.5-15.4); Immature Granulocytes % 1.7 % (0-4); Lymphocytes # 0.9 K/mcL (0.6-4.6); Lymphocytes % 8.6 %; Mean Corpuscular HGB Conc 32.1 g/dL (31.6-35.5); Mean Corpuscular Hemoglobin 31.3 pg (28.0-33.3); Mean Corpuscular Volume 97.3 fL (83.0-100.0); Mean Platelet Volume 11.5 fL (9.4-12.4); Monocytes # 0.8 K/mcL (0.0-1.3); Monocytes % 7.7 %; Neutrophils # 7.9 K/mcL (1.6-8.9); Platelet Count 297 K/mcL (140-400); Red Blood Count 3.71 M/mcL (3.82-4.97); Red Cell Distribution Width 15.5 % (11.5-14.5); Segmented Neutrophils % 75.1 %
--- NOTE | 2018-07-31 07:59 | Internal Med Progress Note ---
Hospitalist Progress Note - Encounter Date of Encounter: 07/31/18 Time of Encounter: 09:15 - Subjective Interval History: awake, rn at bedside. While she has a flat affect she appears to have improved energy today. pain at times is intolerable, uncomofrtable in boot. pain in foot and radiating up into leg, no calf/tyler pain. no fevers, chills, n/v. - Exam Vitals: Temp Pulse Resp BP Pulse Ox 97.4 F L 66 16 134/72 93 07/31/18 06:42 07/31/18 06:42 07/31/18 06:42 07/31/18 06:42 07/31/18 06:42 Exam: gen- alert, awake,appears stated age eyes- pupils equal round cv- reg rate and rhythm, normal s1,s2, no murmurs appreciated, no le edema, warm extremities, palpable RLE pulses, LLE has BKA and cannot assess lungs- ctabl, no wheezing, rhonchi or crackles, normal resp effort on ra abd- soft, non tender, non distended, + bs skin: RLE dressing c/d/i, no erythmea right tyler, no pain to palpation, no increased warmth neuro- AAOx3 - Assessment and Plan (1) Toe ulcer due to DM Current Visit: Yes Status: Acute Assessment and Plan: Toe Ulcer due to DM RLE cellullitis, resolved XR concerning for osteomyelitis -given known PVD we repeated CODY which prelim read is saying no pulses and that is unchanged from her most recent CODY, as followed with vasc surg for this in past and records reviewed- will consult for further assistance/options in management of ulcer/osteo -cont vanc and cefepime - blood cx ngtd and wound cxs +staph aureus and enterococcus faecalis with sensitivities reviewed- MDRO- sensitive to vanc -resumed home eliquis as does not appear that surgical intervention to toe is possible given her pvd status and no podiatry recs for surgery at this time -will fu podiatry recs (2) Osteomyelitis Current Visit: Yes Status: Acute Assessment and Plan: see above (3) BRET (acute kidney injury) Current Visit: Yes Status: Acute Assessment and Plan: Elevated Creat 1.97 and uk at this time if bret vs bret on ckd vs ckd given review of sparse outpt records this past year- improving daily - hold diuretic (lasix 80 mg bid and aldactone 25 mg daily), no signs of fluid overload on exam at this time - renal dose abx (4) Diabetes mellitus, type 2 Current Visit: Yes Status: Chronic Assessment and Plan: DM- SSI and pharmacy to confirmed home meds- appears to be on SSI + Levemir 30 units qhs, A1C 8.9, bs currently at goal with SSI, hold work from home (5) CAD (coronary artery disease) Current Visit: Yes Status: Chronic Assessment and Plan: CAD hx, stable- confirmed home meds: not on asa, cont statin, toprol xl, eliquis for hx arrhythmia in past, not on acei/arb at home ? related to kidney function (6) Asymptomatic bacteriuria Current Visit: Yes Status: Acute Assessment and Plan: Ucx Ecoli >100 CFU- on vanc + cefepime as above, multi resistant but sensitive to cefepime (7) Peripheral vascular disease Current Visit: No Status: Acute Assessment and Plan: - Left BKA - CODY preliminary results on 07/29/18 showed no ankle pulses and noted ot be unchanged from prior - Patient had a vascular consult in 06/06: Patient was instructed that she had no blood flow to the RLE and gave two options, angiography or above knee amputation and she wasn't a great surgical candidate. At the time she denied R AKA and was told to f/u if need be -Consult vascular surg for evaluation. Patient has Osteomyelitis and without blood flow to region would be difficult to treat with IV antibiotics as well as poor surgical candiate for removal of osteomyelitis due to poor ability to heal. (8) Leukocytosis Current Visit: Yes Status: Resolved Assessment and Plan: Leukocytosis resolved -suspected 2/2 toe ulcer/cellulitis and possible UTI- abx as above and cont to monitor, bl, urine and wound cxs as above DVT Prophylaxis: eliquis - Time Spent with Patient Total time spent is greater than 50% in coordination of care (as documented) at patient's floor/unit and/or counseling patient: 25 - 35 minutes Plan of Care Discussed with: patient Internal Medicine: Result - Labs CBC & Chem 7: 07/31/18 07:30 07/31/18 09:10 Labs: Short CBC 07/31/18 Range/Units 07:30 WBC 10.6 (4.3-11.1) K/mcL Hgb 11.6 (11.5-15.4) g/dL Hct 36.1 (35.3-44.9) % Plt Count 297 (140-400) K/mcL Neutrophils # 7.9 (1.6-8.9) K/mcL - ABG Interpretation ABG results: PT/INR, D-dimer PT 20.9 Seconds (9.4-12.1) H 07/29/18 05:14 Consult Discharge Plan - Plan Referrals: NONE,PCP [Primary Care Provider] - (1) Toe ulcer due to DM Qualifiers: Diabetes mellitus type: type 2 Laterality: right Non-pressure ulcer stage: unspecified non-pressure ulcer stage Qualified Code(s): E11.621 - Type 2 diabetes mellitus with foot ulcer; L97.519 - Non-pressure chronic ulcer of other part of right foot with unspecified severity (2) Osteomyelitis Qualifiers: Osteomyelitis type: unspecified type Osteomyelitis location: foot Laterality: right Qualified Code(s): M86.9 - Osteomyelitis, unspecified (4) Diabetes mellitus, type 2 Qualifiers: Diabetes mellitus senior living insulin use: with terminal manager use Diabetes mellitus complication status: with circulatory complication Diabetes mellitus complication detail: with other circulatory complications Qualified Code(s): E11.59 - Type 2 diabetes mellitus with other circulatory complications; Z79.4 - terminal manager (current) use of insulin (5) CAD (coronary artery disease) Qualifiers: Coronary Disease-Associated Artery/Lesion type: [place] artery [place] vs. transplanted heart: [place] heart Associated angina: without angina Qualified Code(s): I25.10 - Atherosclerotic heart disease of [place] coronary artery without angina pectoris (8) Leukocytosis Qualifiers: Leukocytosis type: unspecified Qualified Code(s): D72.829 - Elevated white blood cell count, unspecified
[2018-07-31] MEDS: Gabapentin 100 MG CAPSULE PO SCH ×3 (09:29→19:59)
[2018-07-31] MEDS: Apixaban 5 MG TABLET PO SCH ×2 (09:29→19:59)
[2018-07-31] MEDS: Insulin LISPRO 300 UNITS/3 ML VIAL SQ SCH ×4 (09:42→20:30)
[2018-07-31 09:54] LABS: Calcium 9.2 mg/dL (8.6-10.3); Potassium 3.8 mEq/L (3.5-5.1)
[2018-07-31] MEDS: *HR* OxyCODONE/APAP 5/325 TABLET PO PRN (10:10)
--- NOTE | 2018-07-31 10:30 | Vascular/Endovasc Consult Note ---
Date of Encounter: 07/31/18 Time of Encounter: 09:00 Assessment and Plan (1) BRET (acute kidney injury) Current Visit: Yes Status: Acute (2) Cellulitis of leg, right Current Visit: Yes Status: Acute Spoke with Ms. Armenta at length. She has known PVD with critical limb ischemia of her right lower extremity. At this time her wound is limited to her second toe. She will need a second toe amputation at the very least, but will be unable to heal it given the extent of her PVD. She is very resistant to an AKA at this time. To salvage her foot, we will need additional imaging. I suspect multilevel disease as she has no popliteal pulse in addition to absent signals in her foot. One option would be to perform a CTA of the aorta with lower extremity runoff of the right leg to see if she has a lesion amenable to percutaneous intervention. She was noted to have BRET at the time of her admission and although it is improving, I am concerned that the dye load needed for a diagnostic CTA at this time could be more harmful.The best option at this time is likely a diagnostic angiogram to gather more information and reduce the dye load. I will speak with Dr. Crandall to see if this can be arranged for her. In the meantime, I would continue with antibiotics and wound care. (3) Toe ulcer due to DM Current Visit: Yes Status: Acute Qualifiers: Diabetes mellitus type: type 2 Laterality: right Non-pressure ulcer stage: unspecified non-pressure ulcer stage Qualified Code(s): E11.621 - Type 2 diabetes mellitus with foot ulcer; L97.519 - Non-pressure chronic ulcer of other part of right foot with unspecified severity - History of Present Illness Consult date: 07/31/18 Consult reason: Ischemic right toe ulcer Chief complaint: Painful right toe History of present illness: Ms. Armenta is a 68 year old female with a pmh significant for a prior left AKA and known PVD with ischemic rest pain to RLE. Patient was previously seen by Dr. Crandall for evaluation of her PVD. At that time was apprised of the severity of her PVD. She was to followup for possible diagnostic angiogram and/or amputation . At the time she had no wounds noted in her RLE. She presented to the ED with complaints of a one month history of a second right toe ulcer as well as new calf pain. She is not a good historian but relates no fever/chills at home. States she was eating and drinking normally. She was found to have gangrene of her second toe with surrounding cellulitis of her forefoot. The vascular lab was called but was unable to find doppler signals in her foot to complete the CODY. Podiatry is managing the wound. She is on IV antibiotics. Past Med Surg Social Fam HX - Past Medical History Medical history: coronary artery disease, diabetes, hyperlipidemia, hypertension, myocardial infarction, peripheral artery disease, thyroid disease, TIA Psychiatric history: depression - Past Surgical History Surgical History: appendectomy, carotid endarterectomy, hysterectomy, other Additional surgical history: LBKA - Social History Smoking Status: Former smoker Smokeless Tobacco Status: No Alcohol use: none Drug use: none - Family History Mother Adopted: No Family Member Ethnicity: Non- Living Status: Hx Family Cardiac Disorders: Yes Hx Family Respiratory Disorders: No Hx Family Cancer: No Hx Family GI Disorders: Yes (Diverticulosis) Hx Family Endocrine Disorder: No Hx Family Neuromuscular Disorders: No Hx Family Neurologic Disorders: No Hx Family HEENT Disorders: No Hx Family Autoimmune Disorders: No Medications and Allergies Apixaban [Eliquis] 5 mg PO BID tablet 07/02/15 [Rx] Folic Acid 1 tab PO DAILY #30 tablet 11/14/15 [Rx] Acetaminophen [Non-Aspirin] 650 mg PO HS 05/29/16 [History] Allopurinol [Zyloprim 300 MG] 300 mg PO QAM 09/17/16 [History] Ferrous Sulfate [Iron] 325 mg PO DAILY 09/17/16 [History] GlipiZIDE XL (24 HR) [Glucotrol XL] 20 mg PO 0800 09/17/16 [History] Atorvastatin [Lipitor] 40 mg PO HS 03/24/17 [History] Cholecalciferol (Vitamin D3) [Vitamin D] 50,000 unit PO Q14D 03/24/17 [History] Bisacodyl [Dulcolax] 10 mg PO DAILY PRN 09/22/17 [History] Ipratropium/Albuterol Neb [Duoneb] 3 ml IH QID PRN 09/22/17 [History] Allopurinol [Zyloprim 100 MG] 100 mg PO HS 03/29/18 [History] Furosemide [Lasix] 80 mg PO BID 03/29/18 [History] Spironolactone [Aldactone] 25 mg PO DAILY 03/29/18 [History] Escitalopram Oxalate 5 mg PO DAILY 07/29/18 [History] Gabapentin [Neurontin] 100 mg PO TID 07/29/18 [History] Insulin DETEMIR [Levemir Flextouch] 30 unit SQ HS 07/29/18 [History] Insulin LISPRO [HumaLOG] 2 - 8 units SQ TIDWM 07/29/18 [History] L. Acidophilus/Pectin, [place] [Acidophilus Capsule] 1 cap PO BID 07/29/18 [History] Levothyroxine Sodium 88 mcg PO DAILY 07/29/18 [History] Metoprolol Succinate [Toprol Xl] 50 mg PO DAILY 07/29/18 [History] Potassium Chloride [K-Tab ER] 10 meq PO DAILY 07/29/18 [History] amLODIPine [Norvasc] 5 mg PO DAILY 07/29/18 [History] levoFLOXacin [Levaquin] 250 mg PO DAILY 07/29/18 [History] Allergy/AdvReac Type Severity Reaction Status Date / Time Penicillins [PCN] Allergy Rash Verified 07/29/18 13:41 All Systems Review: The remainder of the systems were reviewed and are negative - Vascular Vascular: lower extremity ulcers Exam Vital Signs, Last 4 Hours Temp Pulse Resp BP Pulse Ox 07/31/18 06:42 97.4 F L 66 16 134/72 93 General: Present: Conversant, Other Cardiac: Present: Reg Rate and Rhythm Lungs: Present: Normal Breath Sounds Neuro: Present: Alert and responsive Abdomen: Present: Soft Skin: Present: Wound/ulcer(s) (Right second toe ulcer with gangrene at the tip. Forefoot cellulitis surrounding the second toe. No erythema or pain to suggest cellulitis of the remaining foot or calf.) Consult Discharge Plan - Plan Referrals: NONE,PCP [Primary Care Provider] -
[2018-08-01 05:05] LABS: Calcium 9.2 mg/dL (8.6-10.3); Potassium 3.9 mEq/L (3.5-5.1)
[2018-08-01] MEDS: Cefepime HCl 2,000 MG in Water for inj. (sterile) 20 ML 20 ML IVP SCH ×2 (05:30→18:50)
[2018-08-01] MEDS: *HR* OxyCODONE/APAP 5/325 TABLET PO PRN ×2 (05:56→20:10)
--- NOTE | 2018-08-01 07:52 | Internal Med Progress Note ---
Hospitalist Progress Note - Encounter Date of Encounter: 08/01/18 Time of Encounter: 09:20 - Subjective Interval History: awake, cont right foot pain in boot, no fevers, chills, n/v. - Exam Vitals: Temp Pulse Resp BP Pulse Ox 98.4 F 64 16 123/68 95 08/01/18 06:49 08/01/18 06:49 08/01/18 06:49 08/01/18 06:49 08/01/18 06:49 Exam: gen- alert, awake,appears stated age eyes- pupils equal round cv- reg rate and rhythm, normal s1,s2, no murmurs appreciated, no le edema, warm extremities lungs- ctabl, no wheezing, rhonchi or crackles, normal resp effort on ra skin: RLE dressing c/d/i, no erythmea right tyler, no pain to palpation, no increased warmth neuro- AAOx3 - Assessment and Plan (1) Toe ulcer due to DM Current Visit: Yes Status: Acute Assessment and Plan: Toe Ulcer due to DM RLE cellullitis, resolved XR concerning for osteomyelitis -given known PVD we repeated CODY which prelim read is saying no pulses and that is unchanged from her most recent CODY, as followed with vasc surg for this in past and records reviewed -cont vanc and cefepime - blood cx ngtd and wound cxs +staph aureus and enterococcus faecalis with sensitivities reviewed- MDRO- sensitive to vanc -resumed home eliquis as no surgical intervention to toe is rec a this point -CTA of aorta w runoff to the right lower extremity as ordered by vascular (2) Osteomyelitis Current Visit: Yes Status: Acute Assessment and Plan: see above (3) BRET (acute kidney injury) Current Visit: Yes Status: Resolved Assessment and Plan: Elevated Creat 1.97 and uk at this time if bret vs bret on ckd vs ckd given review of sparse outpt records this past year-now resolved - cont to hold diuretic (lasix 80 mg bid and aldactone 25 mg daily), no signs of fluid overload on exam at this time - renal dose abx -will be getting CTA as ordered 08/01 so will monitor closely (4) Diabetes mellitus, type 2 Current Visit: Yes Status: Chronic Assessment and Plan: DM- SSI aappears to be on SSI + Levemir 30 units qhs, A1C 8.9 -bs were at goal now elevating, given requirements over last 24 hrs will begin Levemir 10 units tonight (5) CAD (coronary artery disease) Current Visit: Yes Status: Chronic Assessment and Plan: CAD hx, stable- confirmed home meds: not on asa, cont statin, toprol xl, eliquis for hx arrhythmia in past, not on acei/arb at home ? related to kidney function (6) Asymptomatic bacteriuria Current Visit: Yes Status: Acute Assessment and Plan: Ucx Ecoli >100 CFU- on vanc + cefepime as above, multi resistant but sensitive to cefepime (7) Peripheral vascular disease Current Visit: No Status: Acute Assessment and Plan: - Left BKA - CODY preliminary results on 07/29/18 showed no ankle pulses and noted not changed from prior - Patient had a vascular consult in 06/06: Patient was instructed that she had no blood flow to the RLE and gave two options, angiography or above knee amputation and she wasn't a great surgical candidate. At the time she denied R AKA and was told to f/u if need be -Consult vascular surg for evaluation and rec is for CTA of aorta w runoff to the right lower extremity (8) Leukocytosis Current Visit: Yes Status: Resolved Assessment and Plan: Leukocytosis resolved -suspected 2/2 toe ulcer/cellulitis and possible UTI- abx as above and cont to monitor, bl, urine and wound cxs as above DVT Prophylaxis: eliquis - Time Spent with Patient Total time spent is greater than 50% in coordination of care (as documented) at patient's floor/unit and/or counseling patient: 25 - 35 minutes Plan of Care Discussed with: patient Internal Medicine: Result - Labs CBC & Chem 7: 07/31/18 07:30 08/01/18 04:31 Labs: BMP 07/31/18 08/01/18 09:10 04:31 Sodium 135 L 135 L Potassium 3.8 3.9 Chloride 104 103 Carbon Dioxide 24 24 BUN 27 H 24 H Creatinine 1.22 H 1.12 Glucose 212 H 160 H Calcium 9.2 9.2 Urine 07/29/18 Range/Units 14:37 Urine Color Yellow (Yellow) Urine Clarity Cloudy A (Clear) Urine pH 5.5 (5.0-8.0) pH Units Ur Specific [place] 1.017 (1.010-1.025) Urine Protein Negative (Neg-Trace) mg/dL Urine Glucose (UA) Normal (Normal) mg/dL - ABG Interpretation ABG results: PT/INR, D-dimer PT 20.9 Seconds (9.4-12.1) H 07/29/18 05:14 Consult Discharge Plan - Plan Referrals: NONE,PCP [Primary Care Provider] - (1) Toe ulcer due to DM Qualifiers: Diabetes mellitus type: type 2 Laterality: right Non-pressure ulcer stage: unspecified non-pressure ulcer stage Qualified Code(s): E11.621 - Type 2 diabetes mellitus with foot ulcer; L97.519 - Non-pressure chronic ulcer of other part of right foot with unspecified severity (2) Osteomyelitis Qualifiers: Osteomyelitis type: unspecified type Osteomyelitis location: foot Laterality: right Qualified Code(s): M86.9 - Osteomyelitis, unspecified (4) Diabetes mellitus, type 2 Qualifiers: Diabetes mellitus dedicated intermodal truck driver insulin use: with dedicated intermodal truck driver use Diabetes mellitus complication status: with circulatory complication Diabetes mellitus complication detail: with other circulatory complications Qualified Code(s): E11.59 - Type 2 diabetes mellitus with other circulatory complications; Z79.4 - terminal clerk (current) use of insulin (5) CAD (coronary artery disease) Qualifiers: Coronary Disease-Associated Artery/Lesion type: [place] artery [place] vs. transplanted heart: [place] heart Associated angina: without angina Qualified Code(s): I25.10 - Atherosclerotic heart disease of [place] coronary artery without angina pectoris (8) Leukocytosis Qualifiers: Leukocytosis type: unspecified Qualified Code(s): D72.829 - Elevated white blood cell count, unspecified
[2018-08-01] MEDS: Apixaban 5 MG TABLET PO SCH ×2 (08:35→20:10)
[2018-08-01] MEDS: Insulin LISPRO 300 UNITS/3 ML VIAL SQ SCH ×4 (08:35→20:15)
[2018-08-01] MEDS: Gabapentin 100 MG CAPSULE PO SCH ×3 (08:35→20:10)
[2018-08-01] MEDS: Acetaminophen 325 MG TABLET PO PRN (09:48)
--- NOTE | 2018-08-01 10:06 | Vascular/Endovas Progress Note ---
Date of Encounter: 08/01/18 Time of Encounter: 09:00 - Assessment and plan (1) BRET (acute kidney injury) Current Visit: Yes Status: Acute (2) Cellulitis of leg, right Current Visit: Yes Status: Acute Spoke with Ms. Armenta at length. She has known PVD with critical limb ischemia of her right lower extremity. CODY was 0. TOe is stable, no real improvement noted in the forefoot cellulitis. She was noted to have BRET at the time of her admission which has improved. I would like to proceed with a CTA of aorta w runoff to the right lower extremity. Will order this today. In the meantime, I would continue with antibiotics and wound care. (3) Toe ulcer due to DM Current Visit: Yes Status: Acute Qualifiers: Diabetes mellitus type: type 2 Laterality: right Non-pressure ulcer stage: unspecified non-pressure ulcer stage Qualified Code(s): E11.621 - Type 2 diabetes mellitus with foot ulcer; L97.519 - Non-pressure chronic ulcer of other part of right foot with unspecified severity - Subjective Interval history: No new complaints. Vital Signs, Last 4 Hours Temp Pulse Resp BP Pulse Ox 08/01/18 06:49 98.4 F 64 16 123/68 95 - Physical Examination General: Present: Conversant Cardiac: Present: Reg Rate and Rhythm Lungs: Present: Normal Breath Sounds Neuro: Present: Alert and responsive Vascular: Present: Other (Right second toe ulceration, forefoot cellulitis) Abdomen: Present: Soft Results 07/31/18 07:30 08/01/18 04:31 Lab Results, Last 24 hours 08/01/18 04:31 Sodium 135 L Potassium 3.9 Chloride 103 Carbon Dioxide 24 BUN 24 H Creatinine 1.12 Glucose 160 H Calcium 9.2 Consult Discharge Plan - Plan Referrals: NONE,PCP [Primary Care Provider] -
[2018-08-01] MEDS ORDERED: Isovue-370 500 ML INFUS..BTL IV ONE (10:07)
--- NOTE | 2018-08-01 11:16 | Podiatry Progress Note ---
Date of Encounter: 08/01/18 Time of Encounter: 11:12 - Assessment and Plan (1) Cellulitis Current Visit: Yes Status: Inactive Assessment: #1. Cellulitis of the right second toe foot #2. Leukocytosis Plan: #1 agree with present antibiotic therapy given her renal impairment Qualifiers: Site of cellulitis: extremity Site of cellulitis of extremity: toe Laterality: right Qualified Code(s): L03.031 - Cellulitis of right toe (2) Toe ulcer due to DM Current Visit: Yes Status: Acute Assessment: #1 ulceration toe #2 right foot with dry eschar deep tissue injury undetermined unstageable #2 multiple comorbidities as outlined in history Plan: #1 agree with present antibiotic therapy #2 we will begin localized wound care to address debride the wound enzymatically #3 imaging studies to determine if there is any evidence osteomyelitis #4 offload right limb in bed to avoid pressure ulcerations #5 order noninvasive vascular studies if they have not been performing the last 6 months Dictation for 08/01/2018 Assessment: #1 evaluated yesterday and again today with slowly improving cellulitis and wound of the second toe #2 vascular service has evaluated patient with pending CTA with runoff #3 no emergent indication to surgically remove toe #2. In my opinion it would be contraindicated this point since the patient is not septic. Likely surgical intervention for amputation of the toe may precipitate below- knee amputation at this point Plan: #1 continue local wound care and protection of soft tissue with Medix heel relief boot #2 continue intravenous antibiotics as indicated #3 pending final evaluation and recommendations per vascular surgical services #4 will likely treat from medical standpoint the right foot wound Qualifiers: Diabetes mellitus type: type 2 Laterality: right Non-pressure ulcer stage: unspecified non-pressure ulcer stage Qualified Code(s): E11.621 - Type 2 diabetes mellitus with foot ulcer; L97.519 - Non-pressure chronic ulcer of other part of right foot with unspecified severity Subjective Principal diagnosis: Right second toe wound Interval history: Patient with suspicion for possible osteomyelitis of the second toe. Patient with critical limb ischemia. Presently without chest pain nausea vomiting fever chills. Patient was seen yesterday and evaluated with slowly resolving cellulitis toe was unchanged. Objective - Vital Signs Vital Signs: Vital Signs Temp Pulse Resp BP Pulse Ox 08/01/18 10:55 97.7 F 69 14 143/75 93 08/01/18 06:49 98.4 F 64 16 123/68 95 08/01/18 05:23 98.3 F 67 14 120/68 96 07/31/18 19:22 97.6 F 73 14 148/73 96 07/31/18 14:41 98.6 F 66 14 125/68 96 07/31/18 11:15 98.6 F 70 16 136/73 97 Intake and Output 07/31/18 08/01/18 08/01/18 23:59 07:59 15:59 Intake Total 260 / 260 0 / 0 240 / 240 Output Total 0 / 0 0 / 0 Balance 260 / 260 0 / 0 240 / 240 Intake: IV Fluids Maxipime 2,000 MG In Water for inj. (sterile) 20 ML @ 300 mls/ hr IVP Q12H PETER Rx#:[id number] Oral 240 / 240 0 / 0 240 / 240 Output: Urine 0 / 0 0 / 0 Other: Meal Breakfast Percent of Meal Consumed 100% Stool Size Small Stool Consistency loose Stool Color Green # Urine Diapers 0 1 # Bowel Movement Diapers 0 1 Blood Glucose* 200 149 199 - Exam Incision: Present: inflamed (Patient with toe ulcer #2 dorsal medial aspect of PIPJ. No open wound no fluctuance odor purulence ) - Radiology X-Rays: image reviewed - Lab Result Diagrams: 07/31/18 07:30 08/01/18 04:31 Labs: Abnormal lab results RBC 3.71 M/mcL (3.82-4.97) L 07/31/18 07:30 RDW 15.5 % (11.5-14.5) H 07/31/18 07:30 ESR >= 130 mm/hr (0-15) H 07/30/18 04:24 PT 20.9 Seconds (9.4-12.1) H 07/29/18 05:14 APTT 40.6 Seconds (26.0-36.0) H 07/29/18 05:14 Sodium 135 mEq/L (136-145) L 08/01/18 04:31 BUN 24 mg/dL (8-23) H 08/01/18 04:31 Est GFR ( Amer) 59 (> 60) L 08/01/18 04:31 Est GFR (Non-Af Amer) 49 (> 60) L 08/01/18 04:31 Glucose 160 mg/dL (70-105) H 08/01/18 04:31 POC Glucose 200 mg/dL (70-99) H 07/31/18 20:24 Hemoglobin A1c 8.9 % (-5.6) H 07/29/18 05:03 Albumin 3.3 g/dL (3.5-5.7) L 07/29/18 05:14 Albumin/Globulin Ratio 0.9 (1.1-2.2) L 07/29/18 05:14 Urine Clarity Cloudy (Clear) A 07/29/18 14:37 Urine Blood Small (Negative) H 07/29/18 14:37 Urine Nitrite Positive (Negative) A 07/29/18 14:37 Ur Leukocyte Esterase Large (Negative) H 07/29/18 14:37 Urine Microscopic WBC TNTC per hpf (0-3) H 07/29/18 14:37 Ur Squamous Epith Cells Many per lpf (None-Few) H 07/29/18 14:37 Urine Bacteria Many per hpf (None-Few) H 07/29/18 14:37 Vancomycin Trough 19 mcg/mL (5-10) H 08/01/18 04:31 Microbiology, Last 48 Hours 07/29/18 05:35 Wound Culture - Final Second Right Toe Enterococcus faecalis Staphylococcus aureus 07/29/18 14:37 Urine Culture - Final Urine,Clean Catch Escherichia coli Consult Discharge Plan - Plan Referrals: NONE,PCP [Primary Care Provider] -
[2018-08-01] MEDS: Insulin DETEMIR 100 UNIT/ML X5UNITS SQ SCH (20:15)
[2018-08-02 03:43] LABS: Basophils # 0.1 K/mcL (0.0-0.2); Basophils % 1.1 %; Eosinophils # 0.7 K/mcL (0.0-0.6); Eosinophils % 5.4 %; Hematocrit 33.8 % (35.3-44.9); Hemoglobin 10.9 g/dL (11.5-15.4); Immature Granulocytes % 2.3 % (0-4); Lymphocytes # 0.9 K/mcL (0.6-4.6); Lymphocytes % 7.7 %; Mean Corpuscular HGB Conc 32.2 g/dL (31.6-35.5); Mean Corpuscular Hemoglobin 31.6 pg (28.0-33.3); Mean Platelet Volume 11.5 fL (9.4-12.4); Monocytes # 1.1 K/mcL (0.0-1.3); Monocytes % 9.1 %; Neutrophils # 8.9 K/mcL (1.6-8.9); Platelet Count 267 K/mcL (140-400); Red Blood Count 3.45 M/mcL (3.82-4.97); Red Cell Distribution Width 15.7 % (11.5-14.5); Segmented Neutrophils % 74.4 %
[2018-08-02 04:06] LABS: Blood Urea Nitrogen 21 mg/dL (8-23); Carbon Dioxide 23 mEq/L (23-29); Chloride 105 mEq/L (98-107); Glucose 134 mg/dL (70-105); Osmolality,Calculated 283 (280-300); Sodium 134 mEq/L (136-145)
[2018-08-02] MEDS: *HR* OxyCODONE/APAP 5/325 TABLET PO PRN (04:12)
[2018-08-02 05:00] LABS: BUN/Creatinine Ratio 19 (6-26); eGFR For Non-African Americans 50 (> 60)
[2018-08-02] MEDS: Cefepime HCl 2,000 MG in Water for inj. (sterile) 20 ML 20 ML IVP SCH ×2 (05:30→17:53)
--- NOTE | 2018-08-02 07:29 | Internal Med Progress Note ---
<Maninder Manning R - Last Filed: 08/02/18 13:56> Hospitalist Progress Note - Encounter Date of Encounter: 08/02/18 Time of Encounter: 08:47 - Subjective Interval History: Ms. Armenta states she's feeling alright today, she complains of her R air boot being clunky and causing her pain on her heal. Looking at the R heel there looks to be a bruise the width of quarter and the height of a dime on the posterior aspect of the R heel. On the medial aspect of the R great toe there is a small area of ecchymosis. She states that she is wearing the air boot but on PE the foot had slipped out of the air boot. She states these lesions are due to the air boot and that it feels better if its on a pillow. She denies any fever or chills. Complains of a consistent headache which she states she has all the time. She denies dizziness, SOB, chest pain. She admits to constipation but she states shes constipated at baseline. She denies any nausea, vomiting, diarrhea. She deneis any dysuria or hematuria. - Exam Vitals: Temp Pulse Resp BP Pulse Ox 98.0 F 67 15 153/72 93 08/02/18 07:18 08/02/18 07:18 08/02/18 07:18 08/02/18 07:18 08/02/18 07:18 Exam: Gen: Alert and oriented, no acute distress HEENT: Normocephalic atraumatic; EOMI, PERRL CV: RRR, no murmurs, gallops or rubs Resp: CTA traci no rales, rhonchi or wheezes GI: BS x4, soft non- tender Extremities: L BKA, R leg is hyperemic with no pedal pulses noted. Non - pitting edema to the R leg. R lateral aspect of the 2nd toe ulcer 0.5 x 0.5 Escher, grade II ulcer, with non- blanching erythema with sloughing of skin. On the R heel there is a ecchymosis spot approximately 2 cm wide by 1 cm in height . On the medial R great toe there is a ecchymosis the size of a 5mm x 5mm that is tender to touch. Skin: Warm, dry skin with ecchymosis on traci forearms. No lesions or rashes noted - Assessment and Plan (1) Osteomyelitis Current Visit: Yes Status: Acute Assessment and Plan: - Patient denies any pain of R 2nd toe - Patient admits to pain on the medial side of R great toe and her R heel. On PE there is an ecchymosis R great toe on the medial aspect. The lesion on the back of the R heel looks to be a bruise the width of a quarter and the height of a dime, tender to palpation doesn't look to be an ulcer - Culture of the R 2nd toe ulcer showed Enterococcus faecalis and MRSA: Enter ococcus was resistant to ciprofloxacin, doxycycline and tetracycline; MRSA was resistant to ciprofloxacin, erythromycin, Levofloxacin, Moxifloxacin, Oxacillin, Bactrim - Currently treated with IV vancomycin and cefepime - Severe R leg ischemia, CODY = 0 with CTA of R leg showing severe occlusion of the R leg femoral artery. Poor surgical candidate - Vasc surg and podiatry consulted - Plan: Continue vanco and cefepime IV. Vasc surg following CTA, podiatry consulted on R great toe lesion. Continue air boot for off loading (2) Toe ulcer due to DM Current Visit: Yes Status: Acute Assessment and Plan: - Patient with no pain on R 2nd toe but complains of pain on her heel and medial great toe due to the air boot - ON PE R heel ecchymosis with intact skin and pain on palpation; Medial R great toe ecchymosis 5mm x 5mm. - Podiatry and vasc. surg consulted - Culture + for entercoccus and MRSA sensitive to vancomycin - Patient being treated with IV vancomycin and cefepime - HA1C was 8.9 on 07/29/18 - Plan: Continue to monitor 2nd R toe lateral aspect; Discuss with podiatry for medial R great toe ecchymosis Podiatry f/u and vasc. surg. following; continue IV medication; continue off loading air boot (3) BRET (acute kidney injury) Current Visit: Yes Status: Resolved Assessment and Plan: - Patient denies past history of kidney disease - Past Cr level from 2018 was as low as (0.92 on 09/22/18) had a 1.7 Cr in 04/06 - Cr on 07/29/18 1.97 - Cr today was 1.09 - Antibiotics switched to cefepime and vancomycin - Patient urine culture came back E. coli and is sensitive to cefepime - Plan: Continue to follow Cr qAM. (4) Peripheral vascular disease Current Visit: No Status: Acute Assessment and Plan: - Patient L BKA - Patient R leg warm with erythema - CODY was 0 completed 07/29/18 with no ankle pulses - Aorta w/ runoff CTA on 08/01/18 ordered by vas surg showed: "Extensive right lower extremity atherosclerotic disease with right common femoral artery occlusion extending to the distal superficial femoral artery where there is reconstitution of the distal femoral artery related to patent profunda femoral artery and muscular branches. Triple-vessel runoff to the level of the foot with distal lower leg posterior tibialis occlusion and reconstitution. - Patient has significant R leg ischemia and has osteomyelitis and without blood flow to region would be difficult to treat with IV antibiotics as well as poor surgical candidate for osteomyelitis surg. due to poor ability to heal. - Plan: Vas. surg following; Podiatry following for Osteo; Continue on vancomycin and cefepime for osteo of R leg; (5) Diabetes mellitus, type 2 Current Visit: Yes Status: Chronic Assessment and Plan: Insulin dependent TIIDM Home meds: Insulin DETEMIR, glipizide xl - HA1C 07/29/18 = 8.9 - Plan: Use sliding scale insulin during inpatient stay. Maintain diabetic diet and monitor glucose and kidney function (6) Constipation Current Visit: Yes Status: Acute Assessment and Plan: - Patient complains of constipation today, states that its tough for her to go because its not her bathroom - Patient is having flatus - Patient denies any belly pain, back pain, nausea, vomiting or diarrhea - She endorses a PHx of constipation states she goes ~ every other day - Patient had a CTA 08/01/18 that showed impaction of the colon - Plan: Rectal suppositories for stool impaction ordered, follow qAM for s ymptoms of constipation and BM. (7) Asymptomatic bacteriuria Current Visit: Yes Status: Acute Assessment and Plan: - Patient asymptomatic with no pain, hematuria, or flank pain - Cr. . today - Urine culture came back E. coli which was resistent to Ampicillin, amp/sulbactam, ciprofloxacin, gentamicin, levofloxacin, tobramycin - Plan: Monitor for symptoms, no treatment needed but patient is being treated for osteomylitis and cellulitis of R leg with e coli. being sensitive to cefepime (8) CAD (coronary artery disease) Current Visit: Yes Status: Chronic Assessment and Plan: CAD diagnosed in 2014 Home Meds: Furosemide, amlodipine, apixaban, atorvastatin, metoprolol xl, spironolactone Patient states she had 4 stents placed in 2014 Patient denies SOB or chest pain Patient placed on eliquis due to a - flutter in history Placed on cardiac monitoring Plan: Monitor BP and cardiac symptoms, continue home meds hold lasix (9) DVT prophylaxis Current Visit: Yes Status: Acute Assessment and Plan: Eliquis 5mg PO (10) Liver lesion, left lobe Current Visit: Yes Status: Acute Assessment and Plan: - In the left hepatic lobe at the anterior and posterior aspects of lateral segment there are ill defined hypodense areas without expansion. - Plan: Follow up on hepatic hypodense lesions with outpatient MRI and f/u with PCP DVT Prophylaxis: Eliquis 5mg PO - Time Spent with Patient Total time spent is greater than 50% in coordination of care (as documented) at patient's floor/unit and/or counseling patient: less than 15 minutes Plan of Care Discussed with: patient Internal Medicine: Result - Labs CBC & Chem 7: 08/02/18 03:20 08/02/18 03:20 Labs: Short CBC 08/02/18 Range/Units 03:20 WBC 12.0 H (4.3-11.1) K/mcL Hgb 10.9 L (11.5-15.4) g/dL Hct 33.8 L (35.3-44.9) % Plt Count 267 (140-400) K/mcL Neutrophils # 8.9 (1.6-8.9) K/mcL BMP 08/02/18 03:20 Sodium 134 L Potassium 4.0 Chloride 105 Carbon Dioxide 23 BUN 21 Creatinine 1.09 Glucose 134 H Calcium 9.0 - ABG Interpretation ABG results: PT/INR, D-dimer PT 20.9 Seconds (9.4-12.1) H 07/29/18 05:14 - Impressions Impressions Aorta w/Runoff CTA 08/01/18 10:07 IMPRESSION: 1. Extensive aortic atherosclerosis with no aneurysm. 2. Extensive right lower extremity atherosclerotic disease with right common femoral artery occlusion extending to the distal superficial femoral artery where there is reconstitution of the distal femoral artery related to patent profunda femoral artery and muscular branches. Triple-vessel runoff to the level of the foot with distal lower leg posterior tibialis occlusion and reconstitution. 3. Extensive left lower extremity atherosclerotic disease with occlusion of the superficial femoral and popliteal artery to the level of the amputation. The profunda femoral artery and muscular branches are patent. 4. Redemonstration of left hepatic lobe ill-defined hypodense foci. As suggested on previous 09/12/2016 exam this may represent focal hepatic steatosis given the shift in distribution compared to the prior exam. Given the history of malignancy dedicated evaluation with MRI of the liver with/without contrast could exclude metastatic disease. 5. Findings suggesting cholelithiasis with no evidence of acute cholecystitis or biliary obstruction. 6. Focal stool in the rectosigmoid junction with mild wall thickening which could relate to impaction. No significant colonic distention proximally. 7. Decreased bone mineral density with prior left lower extremity amputation at the level of the knee. 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 Extensive right lower extremity arthropathy. D/ / 08/01/2018 11:44:32 Sravan Norman MD / toney Interpreting Provider: Sravan Norman MD Consult Discharge Plan - Plan Referrals: NONE,PCP [Primary Care Provider] - <Maria L Baltazar - Last Filed: 08/02/18 15:21> Hospitalist Progress Note - Encounter Date of Encounter: 08/02/18 - Exam Vitals: Temp Pulse Resp BP Pulse Ox 98.0 F 63 15 116/66 98 08/02/18 11:42 08/02/18 11:42 08/02/18 11:42 08/02/18 11:42 08/02/18 11:42 - Assessment and Plan (1) Toe ulcer due to DM Current Visit: Yes Status: Acute (2) Osteomyelitis Current Visit: Yes Status: Acute (3) BRET (acute kidney injury) Current Visit: Yes Status: Resolved (4) Diabetes mellitus, type 2 Current Visit: Yes Status: Chronic (5) CAD (coronary artery disease) Current Visit: Yes Status: Chronic (6) Asymptomatic bacteriuria Current Visit: Yes Status: Acute (7) Peripheral vascular disease Current Visit: Yes Status: Chronic (8) Leukocytosis Current Visit: Yes Status: Resolved - Time Spent with Patient Total time spent is greater than 50% in coordination of care (as documented) at patient's floor/unit and/or counseling patient: Internal Medicine: Result - Labs CBC & Chem 7: 08/02/18 03:20 08/02/18 03:20 Labs: Short CBC 08/02/18 Range/Units 03:20 WBC 12.0 H (4.3-11.1) K/mcL Hgb 10.9 L (11.5-15.4) g/dL Hct 33.8 L (35.3-44.9) % Plt Count 267 (140-400) K/mcL Neutrophils # 8.9 (1.6-8.9) K/mcL BMP 08/02/18 03:20 Sodium 134 L Potassium 4.0 Chloride 105 Carbon Dioxide 23 BUN 21 Creatinine 1.09 Glucose 134 H Calcium 9.0 - ABG Interpretation ABG results: PT/INR, D-dimer PT 20.9 Seconds (9.4-12.1) H 07/29/18 05:14 - Attending Attestation The history, physical exam, and medical decision making was performed by medical student Kerri either while I was physically present and actively involved or I personally re-performed the exam and medical decision making. I have verified the accuracy of the medical student's documentation with regards to the history, physical exam findings, and medical decision making. Ms Armenta has pmhx CAD, DM, HTN, PVD, Hypothyroidism and presented with diabetic foot/toe ulcer refractory to outpt treatment She is admitted for toe ulcer/cellulitis RLE and iv abx with imaging now suggesting osteomyelitis awake, rigth foot pain tolerable, no fevers or chills. Noting she has not had bm. No abd pain. eating and drinking without difficulty. gen- alert, awake,appears stated age eyes- pupils equal round cv- reg rate and rhythm, normal s1,s2, no murmurs appreciated, no le edema, warm extremities lungs- ctabl, no wheezing, rhonchi or crackles, normal resp effort on ra abd- soft, non tender, non distended, + bs skin: RLE dressing c/d/i, no erythmea right tyler or foot, no pain to palpation, no increased warmth neuro- AAOx3, CN grossly intact, no focal deficits Toe Ulcer due to DM/RLE cellullitis XR concerning for osteomyelitis -cont vanc and cefepime - blood cx ngtd and wound cxs +staph aureus and enterococcus faecalis with sensitivities reviewed- MDRO- sensitive to vanc -CTA of aorta w runoff to the right lower extremity as ordered by vascular reviewed and personally discussed with Dr Crandall, see below -plan for 08/[address] Crandall Right Common Femoral Artery Occlusion, amongst other significant extensive RLE atherosclerotic disease -[facility] surg following -plan for right common femoral artery endarterectomy 08/03, hold AC Asx Ecoli UTI- on vanc + cefepime as above Leukocytosis -suspected 2/2 toe ulcer/cellulitis and UTI- abx as above and cont to monitor, bl, urine and wound cxs as above Elevated Creat 1.97 and uk at this time if bret vs bret on ckd vs ckd given review of sparse outpt records this past year-now resolved - cont to hold diuretic (lasix 80 mg bid and aldactone 25 mg daily), no signs of fluid overload on exam at this time - renal dose abx DM- SSI aappears to be on SSI + Levemir 30 units qhs, A1C 8.9 -bs were at goal now elevating, Levemir 10 units started / night, monitor ssi requirements next 24 hrs and increase further CAD hx- confirmed home meds: not on asa, cont statin, toprol xl, eliquis for hx arrhythmia in past and held for OR tomorrow, not on acei/arb at home ? related to kidney function Hypothyroidism-cont synthroid Incidental finding of redemonstration left hepatic lobe hypodense foci on cta leg- rec is for outpt MRI liver w/wo contrast to exclude malignancy Incidental finding of possible rectal impaction of stool- rectal suppository and bowel regimen prn vte ppx - holding eliquis and pharm vte ppx for OR given consideration of risk vs benefit, cannot put scd on RLE due to infection/poor blood flow, no scd to lle due to BKA, resume eliquis or pharm vte ppx as soon as able post op <Manindre Manning R - Last Filed: 08/02/18 13:56> (1) Osteomyelitis Qualifiers: Osteomyelitis type: unspecified type Osteomyelitis location: foot Laterality: right Qualified Code(s): M86.9 - Osteomyelitis, unspecified (2) Toe ulcer due to DM Qualifiers: Diabetes mellitus type: type 2 Laterality: right Non-pressure ulcer stage: unspecified non-pressure ulcer stage Qualified Code(s): E11.621 - Type 2 diabetes mellitus with foot ulcer; L97.519 - Non-pressure chronic ulcer of other part of right foot with unspecified severity (5) Diabetes mellitus, type 2 Qualifiers: Diabetes mellitus manager intermediate insulin use: with mcc use Diabetes mellitus complication status: with circulatory complication Diabetes mellitus complication detail: with other circulatory complications Qualified Code(s): E11.59 - Type 2 diabetes mellitus with other circulatory complications; Z79.4 - oysterman (current) use of insulin (8) CAD (coronary artery disease) Qualifiers: Coronary Disease-Associated Artery/Lesion type: [place] artery [place] vs. transplanted heart: [place] heart Associated angina: without angina Qualified Code(s): I25.10 - Atherosclerotic heart disease of [place] coronary artery without angina pectoris <Maria L Baltazar - Last Filed: 08/02/18 15:21> (1) Toe ulcer due to DM Qualifiers: Diabetes mellitus type: type 2 Laterality: right Non-pressure ulcer stage: unspecified non-pressure ulcer stage Qualified Code(s): E11.621 - Type 2 diabetes mellitus with foot ulcer; L97.519 - Non-pressure chronic ulcer of other part of right foot with unspecified severity (2) Osteomyelitis Qualifiers: Osteomyelitis type: unspecified type Osteomyelitis location: foot Laterality: right Qualified Code(s): M86.9 - Osteomyelitis, unspecified (4) Diabetes mellitus, type 2 Qualifiers: Diabetes mellitus manager intermediate insulin use: with mcc use Diabetes mellitus complication status: with circulatory complication Diabetes mellitus complication detail: with other circulatory complications Qualified Code(s): E11.59 - Type 2 diabetes mellitus with other circulatory complications; Z79.4 - oysterman (current) use of insulin (5) CAD (coronary artery disease) Qualifiers: Coronary Disease-Associated Artery/Lesion type: [place] artery [place] vs. transplanted heart: [place] heart Associated angina: without angina Qualified Code(s): I25.10 - Atherosclerotic heart disease of [place] coronary artery without angina pectoris (8) Leukocytosis Qualifiers: Leukocytosis type: unspecified Qualified Code(s): D72.829 - Elevated white blood cell count, unspecified
[2018-08-02] MEDS: Insulin LISPRO 300 UNITS/3 ML VIAL SQ SCH ×4 (08:25→21:29)
[2018-08-02] MEDS: Apixaban 5 MG TABLET PO SCH (08:26)
[2018-08-02] MEDS: Gabapentin 100 MG CAPSULE PO SCH ×3 (08:26→21:30)
[2018-08-02] MEDS: Cholecalciferol (D-3) 1,000 UNIT TABLET PO SCH (10:41)
[2018-08-02] MEDS: amLODIPine 5 MG TABLET PO SCH (10:41)
--- NOTE | 2018-08-02 13:54 | Vascular/Endovas Progress Note ---
Date of Encounter: 08/02/18 Time of Encounter: 13:52 - Assessment and plan (1) Peripheral vascular disease Current Visit: Yes Status: Chronic The patient has chronic lower extremity vascular occlusive disease. A CT angiography performed over the weekend clearly demonstrates diffuse disease involving the right iliac as well as femoral and popliteal system. The lesions are located such that endovascular therapy is an inappropriate choice of intervention. Therefore the only hope to provide her with improved perfusion and oxygenation of the right foot to promote wound healing would be open surgery. Due to her multiple ongoing chronic medical problems the patient is a very poor candidate for any type of dramatic reconstruction or bypass. Therefore we will limit our approach to the patient to a right common femoral artery endarterectomy in order to provide pulsatile flow into the patent right profunda femoris artery system. This was reviewed in detail with the patient. Potential risks and benefits as well as complications and alternatives were reviewed. Patient understands the issues and wishes to proceed. Dr. Kyle was notified in order to provide him with information for planning future wound care. (2) S/P amputation of limb Current Visit: Yes Status: Chronic Status post previous left through the knee amputation. (3) Atrial fibrillation Current Visit: Yes Status: Chronic Patient has chronic atrial fibrillation. In preparation for surgery the Elliquis will be held. (4) Insulin dependent diabetes mellitus Current Visit: Yes Status: Chronic Patient has chronic diabetes with vascular and neurologic manifestations. (5) Morbid obesity with BMI of 50.0-59.9, adult Current Visit: Yes Status: Chronic Patient has advanced and significant morbid obesity. Patient is not a candidate for further ambulation and so therefore bypass grafting and other extensive re vascularizations are not indicated. - Subjective Interval history: Mirian Armenta is a 68-year-old white female whom I have seen in the past in the outpatient clinic. She now presents with worsening of her right second toe lesion. She was admitted for further aggressive wound care and intravenous antibiotics. She had had a 2 week course of oral antibiotics at the [facility] care facility with no improvement. [facility] surgery was consulted over the weekend and a CT angiogram was obtained. This demonstrated a right common femoral artery occlusion and a right superficial femoral artery occlusion. Physical exam is consistent with these CT scan findings. Vital Signs, Last 4 Hours Temp Pulse Resp BP Pulse Ox 08/02/18 11:42 98.0 F 63 15 116/66 98 - Physical Examination General: Present: Conversant, No Apparent Distress HEENT: Present: Atraumatic Neck: Absent: JVD Vascular: Present: Pulse, absent (No palpable right lower extremity pulses), Amputation(s) (Status post left through the knee amputation) Skin: Present: Wound/ulcer(s) (Patient has necrotic ulcer on the dorsum of the right second toe with erythema at the base of the distal forefoot. In addition she has erythema on the right heel with an area of erythema and reddish purplish discoloration in the midpoint of the heel.) Results 08/02/18 03:20 08/02/18 03:20 Lab Results, Last 24 hours 08/02/18 08/02/18 03:20 03:20 WBC 12.0 H Hgb 10.9 L Hct 33.8 L Plt Count 267 Sodium 134 L Potassium 4.0 Chloride 105 Carbon Dioxide 23 BUN 21 Creatinine 1.09 Glucose 134 H Calcium 9.0 Consult Discharge Plan - Plan Referrals: NONE,PCP [Primary Care Provider] -
[2018-08-02] MEDS: Bisacodyl 10 MG RECTAL SUPPOSITORY RC SCH (15:25)
[2018-08-02] MEDS: Insulin DETEMIR 100 UNIT/ML X5UNITS SQ SCH (21:31)
--- NOTE | 2018-08-03 01:01 | Anesthesia Evaluation PreOp ---
Addendum entered and electronically signed by Lito Jones DO 08/03/18 14:09: Laboratory Tests 07/29/18 08/03/18 08/03/18 05:14 09:20 09:20 WBC 17.1 H Hgb 12.0 Hct 37.1 Plt Count 288 INR 1.9 Sodium 134 L Potassium 4.0 Chloride 102 Carbon Dioxide 23 BUN 24 H Creatinine 1.16 Addendum entered and electronically signed by Lito Jones DO 08/03/18 14:06: Agree with pre-op evaluation and will proceed with surgery Vital Signs/O2 Sat, Most Current Temp Pulse Resp BP Pulse Ox 98.6 F 66 16 138/67 94 08/03/18 11:01 08/03/18 13:59 08/03/18 13:59 08/03/18 13:59 08/03/18 13:59 Original Note: Date of Encounter: 08/02/18 Time of Encounter: 19:00 - Past History Planned Operation: Right Femoral Endarterectomy Cardiac History: ID, Cardiac Stent (Stent x 4 five years ago), Other (Peripheral Arterial Disease) Pulmonary History: Former smoker, COPD EDGE SANDER History: TIA Other Medical History: Renal (CKD), Diabetes Type II, GERD, Other (Morbid Obesity Anxiety Depression) Anesthesia History: No Prior Anesthetic Complications Alcohol Use: none Drug use: none Medications and Allergies Apixaban [Eliquis] 5 mg PO BID tablet 07/02/15 [Rx] Folic Acid 1 tab PO DAILY #30 tablet 11/14/15 [Rx] Acetaminophen [Non-Aspirin] 650 mg PO HS 05/29/16 [History] Allopurinol [Zyloprim 300 MG] 300 mg PO QAM 09/17/16 [History] Ferrous Sulfate [Iron] 325 mg PO DAILY 09/17/16 [History] GlipiZIDE XL (24 HR) [Glucotrol XL] 20 mg PO 0800 09/17/16 [History] Atorvastatin [Lipitor] 40 mg PO HS 03/24/17 [History] Cholecalciferol (Vitamin D3) [Vitamin D] 50,000 unit PO Q14D 03/24/17 [History] Bisacodyl [Dulcolax] 10 mg PO DAILY PRN 09/22/17 [History] Ipratropium/Albuterol Neb [Duoneb] 3 ml IH QID PRN 09/22/17 [History] Allopurinol [Zyloprim 100 MG] 100 mg PO HS 03/29/18 [History] Furosemide [Lasix] 80 mg PO BID 03/29/18 [History] Spironolactone [Aldactone] 25 mg PO DAILY 03/29/18 [History] Escitalopram Oxalate 5 mg PO DAILY 07/29/18 [History] Gabapentin [Neurontin] 100 mg PO TID 07/29/18 [History] Insulin DETEMIR [Levemir Flextouch] 30 unit SQ HS 07/29/18 [History] Insulin LISPRO [HumaLOG] 2 - 8 units SQ TIDWM 07/29/18 [History] L. Acidophilus/Pectin, [place] [Acidophilus Capsule] 1 cap PO BID 07/29/18 [History] Levothyroxine Sodium 88 mcg PO DAILY 07/29/18 [History] Metoprolol Succinate [Toprol Xl] 50 mg PO DAILY 07/29/18 [History] Potassium Chloride [K-Tab ER] 10 meq PO DAILY 07/29/18 [History] amLODIPine [Norvasc] 5 mg PO DAILY 07/29/18 [History] levoFLOXacin [Levaquin] 250 mg PO DAILY 07/29/18 [History] Allergy/AdvReac Type Severity Reaction Status Date / Time Penicillins [PCN] Allergy Rash Verified 07/29/18 13:41 - Meds/Allergy Pre-op Review Medications Reviewed: Yes Allergies Reviewed: Yes Beta Blockers on Current Med List: No Anesthesia Results - Labs 08/02/18 03:20 08/02/18 03:20 - Imaging EKG: report reviewed (SR First Degree AV Block, poor R wave progresion) Additional studies: 2014 ECHO EF 60%, moderate LV Diastolic Dysfunction, no pulm htn Anesthesia Exam O2 Sat O2 Sat by Pulse Oximetry 95 O2 Sat by Pulse Oximetry 95 O2 Sat by Pulse Oximetry 98 O2 Sat by Pulse Oximetry 93 O2 Sat by Pulse Oximetry 93 O2 Sat by Pulse Oximetry 98 Vital Signs Temp Pulse Resp BP Pulse Ox 97.8 F 61 14 131/79 98 07/29/18 06:14 07/29/18 06:14 07/29/18 06:14 07/29/18 06:14 07/29/18 06:14 Height: 5'1 Weight: 258 lbs NPO (# of Hours): MN Pain Scale: 0 - HEENT Pupil (Motor): Pupils equal, EOMI Mallampati: III Teeth: Prosthesis (Upper Dentures) Denture Type: Upper: Complete Oral Opening: Less than or equal to 3 - EDGE SANDER LOC: Oriented EDGE SANDER Motor: Normal RUE, Normal LUE, Normal RLE, Normal LLE, Normal Face EDGE SANDER Sensory: Normal: RUE, LUE, RLE, LLE, Face - Cardiac Rhythm: Regular Murmur: None JVD: No Carotid Bruit: No - Pulmonary Breath Sounds: bilateral Clear Respiratory Effort: Symmetrical Anesthesia Assess/Plan ASA Score: 3 (HTN CAD MO DM) Level of consciousness: Cooperative, Oriented Anesthetic Plan: General Autologous Blood: No Monitoring Plan: Standard Monitors Recovery Plan: PACU (Discussed GA, agrees to proceed)
[2018-08-03] MEDS: Cefepime HCl 2,000 MG in Water for inj. (sterile) 20 ML 20 ML IVP SCH ×2 (06:17→18:30)
[2018-08-03] MEDS ORDERED: Aminoglycoside Consult 1 EACH MC ONE (07:30)
[2018-08-03] MEDS: Insulin LISPRO 300 UNITS/3 ML VIAL SQ SCH (08:29)
[2018-08-03] MEDS: Bisacodyl 10 MG RECTAL SUPPOSITORY RC SCH ×2 (08:31→08:51)
[2018-08-03] MEDS: amLODIPine 5 MG TABLET PO SCH (08:32)
[2018-08-03] MEDS: Cholecalciferol (D-3) 1,000 UNIT TABLET PO SCH (08:32)
[2018-08-03] MEDS: Gabapentin 100 MG CAPSULE PO SCH (08:32)
--- NOTE | 2018-08-03 08:49 | Internal Med Progress Note ---
<Maria L Baltazar - Last Filed: 08/03/18 12:05> Hospitalist Progress Note - Encounter Date of Encounter: 08/03/18 - Exam Vitals: Temp Pulse Resp BP Pulse Ox 98.6 F 73 18 144/78 95 08/03/18 11:01 08/03/18 11:01 08/03/18 11:01 08/03/18 11:01 08/03/18 11:01 - Assessment and Plan (1) Toe ulcer due to DM Current Visit: Yes Status: Acute (2) Osteomyelitis Current Visit: Yes Status: Acute (3) BRET (acute kidney injury) Current Visit: Yes Status: Resolved (4) Diabetes mellitus, type 2 Current Visit: Yes Status: Chronic (5) CAD (coronary artery disease) Current Visit: Yes Status: Chronic (6) Asymptomatic bacteriuria Current Visit: Yes Status: Acute (7) Peripheral vascular disease Current Visit: Yes Status: Chronic (8) Leukocytosis Current Visit: Yes Status: Resolved - Time Spent with Patient Total time spent is greater than 50% in coordination of care (as documented) at patient's floor/unit and/or counseling patient: Internal Medicine: Result - Labs CBC & Chem 7: 08/03/18 09:20 08/03/18 09:20 Labs: Short CBC 08/03/18 Range/Units 09:20 WBC 17.1 H (4.3-11.1) K/mcL Hgb 12.0 (11.5-15.4) g/dL Hct 37.1 (35.3-44.9) % Plt Count 288 (140-400) K/mcL Neutrophils # 13.9 H (1.6-8.9) K/mcL BMP 08/03/18 09:20 Sodium 134 L Potassium 4.0 Chloride 102 Carbon Dioxide 23 BUN 24 H Creatinine 1.16 Glucose 192 H Calcium 9.5 - ABG Interpretation ABG results: PT/INR, D-dimer PT 20.9 Seconds (9.4-12.1) H 07/29/18 05:14 Consult Discharge Plan - Plan Referrals: NONE,PCP [Primary Care Provider] - (Patient is from [facility] no PCP appointment is needed) Maykel Crandall MD [Partnered Physician] - 08/23/18 9:00 am (This appointment is in [place]) - Attending Attestation The history, physical exam, and medical decision making was performed by medical student Kerri either while I was physically present and actively involved or I personally re-performed the exam and medical decision making. I have verified the accuracy of the medical student's documentation with regards to the history, physical exam findings, and medical decision making. Ms Armenta has pmhx CAD, DM, HTN, PVD, Hypothyroidism and presented with diabetic foot/toe ulcer refractory to outpt treatment She is admitted for toe ulcer/cellulitis RLE and iv abx with imaging now suggesting osteomyelitis awake, right heel pain, no foot pain currently. no fevers, chills, n/v. Moved bowels yesterday with bowel regimen treatment. no abd pain. gen- alert, awake,appears stated age cv- reg rate and rhythm, normal s1,s2, no murmurs appreciated, no le edema lungs- ctabl,normal resp effort on ra skin: foot dressing not in place, necrotic right toe, +eschar, no drainage, right posterior heel now with purple discoloration, no skin sloughing, there is no erythema of the foot or right extremity today, no increased warmth neuro- AAOx3, CN grossly intact Toe Ulcer due to DM/RLE cellullitis Concern for new right heel discoloration XR concerning for osteomyelitis -cont vanc and cefepime - blood cx ngtd and wound cxs +staph aureus and enterococcus faecalis with sensitivities reviewed- MDRO- sensitive to vanc -CTA of aorta w runoff to the right lower extremity as ordered by vascular reviewed and personally discussed with Dr Crandall, see below -plan for 08/[address] Crandall Right Common Femoral Artery Occlusion, amongst other significant extensive RLE atherosclerotic disease -VAsc surg following -plan for right common femoral artery endarterectomy 08/03, hold AC, team will co nfirm with vasc surg when able to resume Asx Ecoli UTI- on vanc + cefepime as above Leukocytosis -suspected 2/2 toe ulcer/cellulitis and UTI- abx as above and cont to monitor, bl, urine and wound cxs as above, repeat cultures if fever BRET-now resolved - cont to hold diuretic (lasix 80 mg bid and aldactone 25 mg daily), no signs of fluid overload on exam at this time, and add back as needed - renal dose abx DM- SSI aappears to be on SSI + Levemir 30 units qhs, A1C 8.9 -bs were at goal now then elevated, Levemir 10 units started / night, and bs at goal currently this morning, increase as needed CAD hx- confirmed home meds: not on asa, cont statin, toprol xl, eliquis for hx arrhythmia in past and held for OR , not on acei/arb at home ? related to kidney function Hypothyroidism-cont synthroid Incidental finding of redemonstration left hepatic lobe hypodense foci on cta leg- rec is for outpt MRI liver w/wo contrast to exclude malignancy Incidental finding of possible rectal impaction of stool- rectal suppository and bowel regimen prn, now resolved vte ppx - holding eliquis and pharm vte ppx for OR given consideration of risk vs benefit, cannot put scd on RLE due to infection/poor blood flow, no scd to lle due to BKA, resume eliquis or pharm vte ppx as soon as able post op <Maninder Manning - Last Filed: 08/03/18 16:22> Hospitalist Progress Note - Encounter Date of Encounter: 08/03/18 Time of Encounter: 08:48 - Subjective Interval History: Ms Armenta is a 68 YO F was admitted 07/29/18 for R 2nd toe diabetic ulcer with osteomyelitis. She has a PMHx of CAD, TIIDM, HTN, and Hypothyroidism. She states shes feeling poor today, she complains that she's been cold all night and that she has been uncomfortable with the number of bowel movements shes had since the suppository. She states that shes had 3 BM since yesterday doesn't know if she's had diarrhea, hematochezia, or dark brown/black stool. She admits to flatus and denies any abdominal pain, nausea, or emesis. She endorses a headache that she states is there all consistently. She denies SOB and chest pain. - Exam Vitals: Temp Pulse Resp BP Pulse Ox 99.9 F H 94 14 139/74 94 08/03/18 06:38 08/03/18 06:38 08/03/18 06:38 08/03/18 06:38 08/03/18 06:38 Exam: Gen: Alert and oriented, no acute distress HEENT: Normocephalic atraumatic; EOMI, PERRL CV: RRR, no murmurs, gallops or rubs Resp: CTA traci no rales, rhonchi or wheezes GI: BS x4, soft non- tender Extremities: L BKA, R leg is less hyperemic then past few days with no pedal pulses noted. Non - pitting edema to the R leg. R lateral aspect of the 2nd toe ulcer 5mm x 5mm Escher, grade II ulcer, with non- blanching erythema with sloughing of skin. On the R heel there is a ecchymosis spot looks a bit worse today, approximately 2 cm wide by 1.5 cm in height, its tender on palpation. On the medial R great toe there is a ecchymosis that is 2mm x 2mm and tender to palpation. Skin: Warm, dry skin with ecchymosis on traci forearms. No lesions or rashes noted - Assessment and Plan (1) Osteomyelitis Current Visit: Yes Status: Acute Assessment and Plan: - Patient denies any pain of R 2nd toe - Patient admits to pain on the medial side of R great toe and her R heel. On PE there is an ecchymosis R great toe on the medial aspect. The lesion on the back of the R heel is a ecchymosis that has grown in size to 2cm x 1.5cm, tender to palpation doesn't look to be an ulcer yet - Culture of the R 2nd toe ulcer showed Enterococcus faecalis and MRSA: Enterococcus was resistant to ciprofloxacin, doxycycline and tetracycline; MRSA was resistant to ciprofloxacin, erythromycin, Levofloxacin, Moxifloxacin, Oxacillin, Bactrim - Currently treated with IV vancomycin and cefepime; Enterococcus and MRSA sensitive to vancomycin - Severe R leg ischemia, CODY = 0 with CTA of R leg showing severe occlusion of the R leg femoral artery. - Vasc surg: (Dr. Crandall) taking her to surgery 08/03/18 @14:45 for right common femoral artery endarterectomy in order to provide pulsatile flow into the patent right profunda femoris artery system - Patient with leukocytosis (17.1) with left shift and a temp. of 99.9 at 7:00. - Plan: Continue vanco and cefepime IV; Monitor leukocytosis qAM; Podiatry consulted on R heel lesion; Vasc. surgery R femoral endarterectomy; Continue air boot for off loading; MRSA contact precautions. (2) Toe ulcer due to DM Current Visit: Yes Status: Acute Assessment and Plan: - Patient with no pain on R 2nd toe but continues to complain of pain on her heel and medial great toe - ON PE R heel ecchymosis approx. 2cm x 1.5cm with intact skin and pain on palpation; Medial R great toe ecchymosis 2mm x 2mm pain on palpation. - Podiatry and vasc. surgery consulted - Vasc. Surgery taking her to surgery 08/03/18 for R femoral artery endarterectomy; - Culture + for entercoccus and MRSA sensitive to vancomycin - Patient being treated with IV vancomycin and cefepime - HA1C was 8.9 on 07/29/18 - Plan: Continue to monitor 2nd R toe lateral aspect; Consult podiatry for R heel ecchymosis. Podiatry and vasc. surg. following; continue IV medication; continue off loading air boot. (3) Peripheral vascular disease Current Visit: Yes Status: Chronic Assessment and Plan: - Patient L BKA - Patient R leg warm with erythema - CODY was 0 completed 07/29/18 with no ankle pulses - Aorta w/ runoff CTA on 08/01/18 ordered by vasc surg showed: "Extensive right lower extremity atherosclerotic disease with right common femoral artery occlusion extending to the distal superficial femoral artery where there is reconstitution of the distal femoral artery related to patent profunda femoral artery and muscular branches. Triple-vessel runoff to the level of the foot with distal lower leg posterior tibialis occlusion and reconstitution. - Patient has significant R leg ischemia and has osteomyelitis and without blood flow to region would be difficult to treat with IV antibiotics as well as poor surgical candidate for osteomyelitis surg. due to poor ability to heal. - 08/03/18; Vascular surgery (Dr. Crandall) taking her for femoral endarterectomy to provide pulsatile flow into the patent right profunda femoris artery system. - Plan: Vasc. surgery endarterectomy; Podiatry following for Osteo; Continue on vancomycin and cefepime for osteo of R leg; (4) BRET (acute kidney injury) Current Visit: Yes Status: Resolved Assessment and Plan: - Patient denies past history of kidney disease - Past Cr level from 2018 was as low as (0.92 on 09/22/18) had a 1.7 Cr in 04/06 - Cr on 07/29/18 1.97 - Cr today was 1.16 - Antibiotics = cefepime and vancomycin - Patient urine culture came back E. coli and is sensitive to cefepime - Plan: Continue to follow Cr qAM post vasc. surgery today. (5) Diabetes mellitus, type 2 Current Visit: Yes Status: Chronic Assessment and Plan: Insulin dependent TIIDM Home meds: Insulin DETEMIR, glipizide xl - HA1C 07/29/18 = 8.9 - Plan: Use sliding scale insulin during inpatient stay. Maintain diabetic diet and monitor glucose and kidney function (6) Constipation Current Visit: Yes Status: Acute Assessment and Plan: - Patient received rectal suppository 08/02/18 - States flatus x 3 BM yesterday - Plan: Follow patient for constipation post vasc. surgery today. (7) Asymptomatic bacteriuria Current Visit: Yes Status: Acute Assessment and Plan: - Patient asymptomatic with no pain, hematuria, or flank pain - Cr. 1.16 today - Urine culture came back E. coli which was resistent to Ampicillin, a mp/sulbactam, ciprofloxacin, gentamicin, levofloxacin, tobramycin - Patient with leukocytosis (17.1; 08/03/18) and a temp of 99.9 this AM. Likely due to R toe osteomyelitis - Plan: Monitor for symptoms, no treatment needed but patient is being treated for osteomylitis and cellulitis of R leg with e coli. being sensitive to cefepime (8) CAD (coronary artery disease) Current Visit: Yes Status: Chronic Assessment and Plan: CAD diagnosed in 2014 Home Meds: Furosemide, amlodipine, apixaban, atorvastatin, metoprolol xl, spironolactone Patient states she had 4 stents placed in 2014 Patient denies SOB or chest pain Patient placed on eliquis due to a - flutter in history Placed on cardiac monitoring Plan: Hold eliquis for vasc. surg. 08/03/18; Discuss with Dr. Crandall on when to restart eliquis; Monitor BP and cardiac symptoms, continue home meds hold lasix (9) DVT prophylaxis Current Visit: Yes Status: Acute Assessment and Plan: - No PHx of DVT or PE - On eliquis for a - flutter -Held Eliquis 08/02/18 in advance of vasc. surgery. -Plan: Talk with Dr. Crandall on when to restart eliquis (10) Liver lesion, left lobe Current Visit: Yes Status: Acute Assessment and Plan: - In the left hepatic lobe at the anterior and posterior aspects of lateral segment there are ill defined hypodense areas without expansion. - Plan: Follow up on hepatic hypodense lesions with outpatient MRI and f/u with PCP DVT Prophylaxis: Plan: Hold eliquis for vasc surg.; talk with Dr. Crandall on when to restart eliquis - Time Spent with Patient Total time spent is greater than 50% in coordination of care (as documented) at patient's floor/unit and/or counseling patient: less than 15 minutes Plan of Care Discussed with: patient Internal Medicine: Result - Labs CBC & Chem 7: 08/03/18 09:20 08/03/18 09:20 - ABG Interpretation ABG results: PT/INR, D-dimer PT 20.9 Seconds (9.4-12.1) H 07/29/18 05:14 <Maria L Baltazar M - Last Filed: 08/03/18 12:05> (1) Toe ulcer due to DM Qualifiers: Diabetes mellitus type: type 2 Laterality: right Non-pressure ulcer stage: unspecified non-pressure ulcer stage Qualified Code(s): E11.621 - Type 2 diabetes mellitus with foot ulcer; L97.519 - Non-pressure chronic ulcer of other part of right foot with unspecified severity (2) Osteomyelitis Qualifiers: Osteomyelitis type: unspecified type Osteomyelitis location: foot Laterality: right Qualified Code(s): M86.9 - Osteomyelitis, unspecified (4) Diabetes mellitus, type 2 Qualifiers: Diabetes mellitus custodial insulin use: with termination clerk use Diabetes mellitus complication status: with circulatory complication Diabetes mellitus complication detail: with other circulatory complications Qualified Code(s): E11.59 - Type 2 diabetes mellitus with other circulatory complications; Z79.4 - ferry terminal agent (current) use of insulin (5) CAD (coronary artery disease) Qualifiers: Coronary Disease-Associated Artery/Lesion type: [place] artery Cahto vs. transplanted heart: [place]ary[place] heart Associated angina: without angina Qualified Code(s): I25.10 - Atherosclerotic heart disease of [place] coronary artery without angina pectoris (8) Leukocytosis Qualifiers: Leukocytosis type: unspecified Qualified Code(s): D72.829 - Elevated white blood cell count, unspecified <Maninder Manning - Last Filed: 08/03/18 16:22> (1) Osteomyelitis Qualifiers: Osteomyelitis type: unspecified type Osteomyelitis location: foot Latera lity: right Qualified Code(s): M86.9 - Osteomyelitis, unspecified (2) Toe ulcer due to DM Qualifiers: Diabetes mellitus type: type 2 Laterality: right Non-pressure ulcer stage: unspecified non-pressure ulcer stage Qualified Code(s): E11.621 - Type 2 belem betes mellitus with foot ulcer; L97.519 - Non-pressure chronic ulcer of other part of right foot with unspecified severity (5) Diabetes mellitus, type 2 Qualifiers: Diabetes mellitus custodial insulin use: with termination clerk use Diabetes mellitus complication status: with circulatory complication Diabetes mellitus complication detail: with other circulatory complications Qualified Code(s): E1 1.59 - Type 2 diabetes mellitus with other circulatory complications; Z79.4 - ferry terminal agent (current) use of insulin (8) CAD (coronary artery disease) Qualifiers: Coronary Disease-Associated Artery/Lesion type: [place] artery [place]hto vs. transplanted heart: [place]ary[place] heart Associated angina: without angina Qualified Code(s): I25.10 - Atherosclerotic heart disease of [place] coronary artery without angina pectoris
[2018-08-03] MEDS ORDERED: Metoprolol XL (24 HR) Succ 50 MG TAB.ER.24H PO SCH (09:00)
[2018-08-03] MEDS ORDERED: Folic Acid 1 MG TABLET PO SCH (09:00)
[2018-08-03] MEDS ORDERED: Spironolactone 25 MG TABLET PO SCH (09:00)
[2018-08-03] MEDS ORDERED: Lactobacillus 1 EACH CAP.SPRINK PO SCH (09:00)
[2018-08-03 09:34] LABS: Basophils # 0.2 K/mcL (0.0-0.2); Basophils % 0.9 %; Eosinophils # 0.5 K/mcL (0.0-0.6); Eosinophils % 2.9 %; Hematocrit 37.1 % (35.3-44.9); Lymphocytes # 0.7 K/mcL (0.6-4.6); Mean Corpuscular HGB Conc 32.3 g/dL (31.6-35.5); Mean Corpuscular Hemoglobin 31.4 pg (28.0-33.3); Mean Corpuscular Volume 97.1 fL (83.0-100.0); Mean Platelet Volume 11.3 fL (9.4-12.4); Monocytes # 1.5 K/mcL (0.0-1.3); Monocytes % 8.7 %; Neutrophils # 13.9 K/mcL (1.6-8.9); Platelet Count 288 K/mcL (140-400); Red Blood Count 3.82 M/mcL (3.82-4.97); Red Cell Distribution Width 15.8 % (11.5-14.5); Segmented Neutrophils % 81.5 %
[2018-08-03 09:55] LABS: Calcium 9.5 mg/dL (8.6-10.3)
[2018-08-03] MEDS ORDERED: Insulin LISPRO 300 UNITS/3 ML VIAL SQ SCH (12:00)
[2018-08-03] MEDS ORDERED: *HR* FentaNYL (PF) 100 MCG/2 ML VIAL ONE ×2 (12:47→16:17)
[2018-08-03] MEDS ORDERED: *HR* Midazolam HCl 2 MG/2 ML VIAL ONE (12:47)
[2018-08-03] MEDS ORDERED: *HR* Propofol 200 MG/20 ML VIAL IVP ONE (12:48)
[2018-08-03] MEDS ORDERED: Dexamethasone 4 MG/ML VIAL ONE (12:51)
[2018-08-03] MEDS ORDERED: Ondansetron 4 MG/2 ML VIAL ONE (12:51)
[2018-08-03] MEDS ORDERED: *HR* Succinylcholine 200 MG/10 ML VIAL IVP ONE (12:51)
[2018-08-03] MEDS ORDERED: Lidocaine -MPF 2% 2 ML VIAL ONE ×2 (12:51→14:25)
[2018-08-03] MEDS ORDERED: Lidocaine -MPF 4% 5 ML AMPUL ONE (12:52)
[2018-08-03] MEDS ORDERED: Heparin 1,000 UNITS/500 mL 500 ML ONE ×2 (14:00→14:25)
[2018-08-03] MEDS ORDERED: EPHEDrine 50 MG/ML VIAL ONE (14:08)
[2018-08-03] MEDS ORDERED: ceFAZolin 2,000 MG in Water for inj. (sterile) 20 ML 10 ML IVP ONE (14:18)
[2018-08-03] MEDS ORDERED: *HR* Heparin 5,000 UNIT/ML VIAL ONE ×2 (16:24→17:54)
--- NOTE | 2018-08-03 20:12 | Operative Note ---
Date of procedure: 08/03/18 Pre-op diagnosis: PAD/right toe ulcer Post-op diagnosis: same Procedure: right iliofemoral endarterectomy with bovine patch angioplasty Complications: 0 Anesthesia: GETA Surgeon: Maykel Crandall Was there an speech language pathology assistant present: No Estimated blood loss (cc): 200 Specimen: 0 Condition: stable Disposition: PACU Procedure in Detail: History Mirian Armenta is a 68-year-old white female with multiple ongoing chronic medical problems. She has severe PAD. She is status post a left through the knee amputation. She now has nonhealing ulcer of the right second toe and a new wound on the right heel. The patient is not a candidate for bypass grafting. The patient was found to have on CT angiogram and occluded common femoral artery. Patient now comes in operating room for attempted limb salvage by performing a femoral endarterectomy and to open up pulsatile flow back into the profunda femoris system. Procedure After informed consent was obtained the patient was taken the operating room. She was a very difficult prep from an anesthetic standpoint. He was very difficult to place the arterial line. Due to her obesity and diarrhea it was difficult to prep and drape the area sterilely requiring interruption and multiple assistants to accomplish his feet. After this was finally performed the right lower extremity was sterilely prepped and draped. Timeout protocol was observed. A longitudinal incision was made in the right groin. Dissection was carried down through the obese thigh in an attempt to try to identify the common femoral artery. This is very difficult due to the obesity and lack of pulse and Doppler signal. Eventually the calcific nonpulsatile vessel was identified. Then the common femoral and profunda femoris and superficial femoral artery were dissected. After controls obtained of these vessels the dissection was carried more proximally to expose the distal aspect of the external iliac artery were finally a palpable pulse could be identified. The exposure was also very tedious and troublesome due to her marked obesity and the depth of the vessels. A counter incision was needed in the lower pre-peritoneal space above the inguinal ligament in order to place a proximal clamp to obtain proximal control. After this was performed 6000 units of heparin were administered intravenously. After 3 minute delay the vessels were then clamped. Using an 11 blade knife and Sanchez scissors the common femoral artery was opened for its entire length and extended up on into the distal external iliac artery and the proximal superficial femoral artery. There was no fresh clot but there was chronic thrombus and also a very profoundly diseased vessel with marked calcification. This required a very difficult endarterectomy for the iliofemoral segment. The orifices of the profunda femoris artery were also endarterectomized. The proximal superficial femoral artery was also endarterectomized. The area was copiously irrigated with heparinized saline. All loose material was removed. A bovine pericardial patch a ngioplasty was then performed. This was sewn into position using 2 6-0 Prolene sutures. After appropriate backbleeding and flushing the clamps removed with the profunda femoris clamps removed first. Then the inflow from the external iliac artery was removed and the area was inspected and hemostasis was achieved. Excellent ulcerations and Doppler signals were identified in to the profunda femoris artery. A biphasic signal was identified over the dorsalis pedis artery on the foot. The wound was then irrigated again with antibiotic containing solution. Half percent Marcaine was infiltrated into the wound edges. The wound was then closed in layers using absorbable suture. The counter incision for the insertion of the proximal clamp was also irrigated and closed with absorbable suture. Dry sterile dressings were applied. A dressing was then reapplied to the right foot and toes. The patient was extubated in the operating room. She was taken to the recovery room in stable condition. There were no intraoperative complications.
--- NOTE | 2018-08-03 21:56 | Anesthesia Evaluation Post Op ---
Date of Encounter: 08/03/18 Time of Encounter: 21:40 - Vital Signs Vital Signs: Vital Signs/O2 Sat/Glucose, Most Current Temp Pulse Resp BP Pulse Ox 08/03/18 21:22 98.3 F 63 18 93 08/03/18 21:12 64 16 136/62 93 08/03/18 21:02 98.1 F 64 18 135/60 94 08/03/18 20:52 66 18 138/61 95 08/03/18 20:42 98.3 F 66 18 134/61 96 08/03/18 20:32 66 18 130/52 96 08/03/18 20:22 99.3 F 64 18 138/59 98 - Lungs Lungs: Clear Ascult./Percussion - Airway Airway: Non-obstructed - Cardiovascular Regular Rate - Mental Status Mental Status: Alert & Oriented, Answers Appropriately - Pain Pain Scale: 1 - Nausea Vomiting Nausea Vomiting: Not Present - Hydration Hydration: Ice chips - Discharge PostOp Status: Transfer Patient to floor
[2018-08-03] MEDS ORDERED: Ipratropium/Albuterol Neb 3 ML IH PRN (22:08)
[2018-08-03] MEDS ORDERED: Ondansetron 4 MG/2 ML VIAL IVP PRN (22:08)
[2018-08-03] MEDS ORDERED: Dextrose Gel 15 GM/37.5 ML TUBE PO PRN ×2 (22:08)
[2018-08-03] MEDS ORDERED: D5% in Water 1,000 ML IVC PRN (22:08)
[2018-08-03] MEDS ORDERED: Acetaminophen 325 MG TABLET PO PRN (22:08)
[2018-08-03] MEDS ORDERED: Naloxone 0.4 MG/ML INJ IVP PRN ×2 (22:08)
[2018-08-03] MEDS ORDERED: *HR* Dextrose 50 % in Water (Syg) 50 ML SYRINGE IVP PRN (22:08)
[2018-08-04] MEDS: *HR* OxyCODONE/APAP 5/325 TABLET PO PRN
[2018-08-04] MEDS: Insulin LISPRO 300 UNITS/3 ML VIAL SQ SCH ×4 (01:37→18:24)
[2018-08-04] MEDS: Cefepime HCl 2,000 MG in Water for inj. (sterile) 20 ML 20 ML IVP SCH ×2 (04:45→18:22)
[2018-08-04 05:11] LABS: Mean Platelet Volume 11.6 fL (9.4-12.4); Red Cell Distribution Width 15.8 % (11.5-14.5)
[2018-08-04 05:12] LABS: Basophils # 0.1 K/mcL (0.0-0.2); Basophils % 0.3 %; Hematocrit 33.3 % (35.3-44.9); Hemoglobin 10.9 g/dL (11.5-15.4); Immature Granulocytes % 2.3 % (0-4); Lymphocytes # 0.6 K/mcL (0.6-4.6); Lymphocytes % 2.1 %; Mean Corpuscular HGB Conc 32.7 g/dL (31.6-35.5); Mean Corpuscular Hemoglobin 31.4 pg (28.0-33.3); Monocytes # 1.6 K/mcL (0.0-1.3); Neutrophils # 23.8 K/mcL (1.6-8.9); Platelet Count 281 K/mcL (140-400); Red Blood Count 3.47 M/mcL (3.82-4.97); Segmented Neutrophils % 89.3 %
[2018-08-04 05:30] LABS: Calcium 9.2 mg/dL (8.6-10.3); Potassium 4.5 mEq/L (3.5-5.1)
[2018-08-04 05:43] LABS: Platelet Estimate Normal (Normal)
--- NOTE | 2018-08-04 08:43 | Internal Med Progress Note ---
<Maninder Manning R - Last Filed: 08/04/18 10:46> Hospitalist Progress Note - Encounter Date of Encounter: 08/04/18 Time of Encounter: 08:30 - Subjective Interval History: Ms Armenta is a 68 YO F who was admitted 07/29/18 for R 2nd toe diabetic ulcer with osteomyelitis. She has a PMHx of CAD, TIIDM, HTN, PVD, and Hypothyroidism. Patient is post-op day 1 from R iliofemoral endarterectomy to provide blood flow to patent R profunda femoris artery system. Dr. Betancourt surgical note stated a successful surgery with no complications and she handled the surgery well. This morning she was tough to arouse and complains of R groin & R forearm pain pointing to her IV site. This morning she states she's not hungry and wishes to go back to sleep. She denies headache, chest pain, SOB, or abdominal pain. - Exam Vitals: Temp Pulse Resp BP Pulse Ox 98.3 F 63 18 122/55 99 08/04/18 07:23 08/04/18 07:23 08/04/18 07:23 08/04/18 07:23 08/04/18 07:23 Exam: Gen: Tough to alert, Oriented to person and place; In no acute distress HEENT: Normocephalic atraumatic; PERRL EOMI CV: RRR, no murmurs, gallops or rubs Resp: CTA traci, no wheezes, rhonchi or rales GI: BS present, soft, non-tender to palpation Extremities: Radial pulses intact traci. L BKA; R LE wrapped from surgery, didn't attempt removal. Skin: Warm, dry, R and L arm ecchymosis, no rashes or erythema noted. - Assessment and Plan (1) Osteomyelitis Current Visit: Yes Status: Acute Assessment and Plan: - Patient denies any pain in her foot - Consulted Telephone Operators Supervisor (Dr. Collazo) for R heel lesion that has come up the past 2 days. - Currently treated with IV vancomycin and cefepime; Enterococcus and MRSA sensitive to vancomycin - IV Vancomycin was started 08/01/18; - IV Cefepime was started 07/30/18; - Severe R leg ischemia, CODY = 0 with CTA of R leg showing severe occlusion of the R leg femoral artery. - 08/03/18 Vasc surg. (Dr. Crandall) performed right common iliofemoral artery endarterectomy in order to provide pulsatile flow into the patent right profunda femoris artery system - Patient this morning with leukocytosis (26.7) with left shift and a temp. of 98.3 - Plan: Continue vanco and cefepime IV; Monitor leukocytosis qAM likely due to vasc surg 08/03/18; Podiatry consulted on R heel lesion; Clean and dry dressing change; MRSA contact precautions. (2) Toe ulcer due to DM Current Visit: Yes Status: Acute Assessment and Plan: - Patient with no pain on R 2nd toe - PE on 08/03/18; R heel ecchymosis approx. 2cm x 1.5cm with intact skin and pain on palpation; Medial R great toe ecchymosis 2mm x 2mm pain on palpation. - Podiatry (Dr. Collazo) Consulted to evaluation R heel lesion - 08/03/18; Vasc. Surgery R iliofemoral artery endarterectomy to restore blood flow; - Culture + for entercoccus and MRSA sensitive to vancomycin - Patient being treated with IV vancomycin and cefepime - HA1C was 8.9 on 07/29/18 - Plan: Continue to monitor 2nd R; Dr. Kyle is managing wound care; Clean and dry dressing change (3) Peripheral vascular disease Current Visit: Yes Status: Chronic Assessment and Plan: - Patient L BKA - CODY was 0 completed 07/29/18 with no ankle pulses - Aorta w/ runoff CTA on 08/01/18 ordered by vasc surg showed: "Extensive right lower extremity atherosclerotic disease with right common femoral artery occlusion extending to the distal superficial femoral artery where there is reconstitution of the distal femoral artery related to patent profunda femoral artery and muscular branches. Triple-vessel runoff to the level of the foot with distal lower leg posterior tibialis occlusion and reconstitution. - Patient has significant R leg ischemia and has osteomyelitis and without blood flow to region would be difficult to treat with IV antibiotics as well as poor surgical candidate for osteomyelitis surg. due to poor ability to heal. - 08/03/18; Vascular surgery (Dr. Crandall) performed R iliofemoral endarterectomy to provide pulsatile flow into the patent right profunda femoris artery system. - Surgery was successful; Patient tolerated surgery well with no complications. - Dr. Crandall out of town, Dr Nicole following - Plan: Vasc. surgery follow up with Dr. Nicole; Podiatry following for Osteo; Continue on vancomycin and cefepime for osteo of R leg; Clean and dry dressing change today (4) BRET (acute kidney injury) Current Visit: Yes Status: Resolved Assessment and Plan: - Post op day 1 from vasc. surg. - Patient Cr is 1.32 - Patient denies past history of kidney disease - Past Cr level from 2018 was as low as (0.92 on 09/22/18) had a 1.7 Cr in 04/06 - Cr on 07/29/18 1.97 - Antibiotics for osteo are cefepime and vancomycin - Patient urine culture came back E. coli sensitive to cefepime - Vanc trough high (30) 08/03/18 - Plan: Give maintenance 100ml/hr NS; Continue to follow Cr qAM. (5) Diabetes mellitus, type 2 Current Visit: Yes Status: Chronic Assessment and Plan: - Insulin dependent TIIDM - Patient glucose post op = 257 this morning - Didn't receive Levemir last night - Home meds: Insulin DETEMIR, glipizide xl - HA1C 07/29/18 = 8.9 - Plan: Monitor glucose this afternoon, if >275 then give Lispro; Restart Levemir; Continue use sliding scale insulin during inpatient stay. Maintain diabetic diet and monitor kidney function (6) Constipation Current Visit: Yes Status: Resolved Assessment and Plan: - Patient received rectal suppository 08/02/18 w/ BM x3 and flatus - States no abdominal complaints today - Plan: Continue to monitor for signs and symptoms post op. (7) Asymptomatic bacteriuria Current Visit: Yes Status: Acute Assessment and Plan: - Patient asymptomatic with no abdominal pain - Cr. 1.32 today - Urine culture came back E. coli which was resistent to Ampicillin, amp/sulbactam, ciprofloxacin, gentamicin, levofloxacin, tobramycin - E.coli sensitive to cefepime - Patient with leukocytosis (26.7; 08/04/18) and a temp of 98.3 this AM. Likely due to vasc. surg. and R osteo - Plan: Monitor for symptoms, no treatment needed; Patient is being treated for osteomylitis of R leg with cefepime (8) CAD (coronary artery disease) Current Visit: Yes Status: Chronic Assessment and Plan: CAD diagnosed in 2014 Home Meds: Furosemide, amlodipine, apixaban, atorvastatin, metoprolol xl, spironolactone Patient states she had 4 stents placed in 2014 Patient denies SOB or chest pain Patient placed on eliquis due to a - flutter in history Placed on cardiac monitoring Plan: Restart eliquis; Post op day 1 for vasc. surg. being followed by Dr. Nicole; Monitor BP and cardiac symptoms, continue home meds hold lasix (9) DVT prophylaxis Current Visit: Yes Status: Acute Assessment and Plan: - No PHx of DVT or PE - On eliquis for a - flutter -Held Eliquis 08/02/18 in advance of vasc. surgery. -Plan: Restart Eliquis today (10) Liver lesion, left lobe Current Visit: Yes Status: Acute Assessment and Plan: - In the left hepatic lobe at the anterior and posterior aspects of lateral segment there are ill defined hypodense areas without expansion. - Plan: Follow up on hepatic hypodense lesions with outpatient MRI and f/u with PCP DVT Prophylaxis: Restart eliquis today 08/04/[address] Crandall - Time Spent with Patient Total time spent is greater than 50% in coordination of care (as documented) at patient's floor/unit and/or counseling patient: less than 15 minutes Internal Medicine: Result - Labs CBC & Chem 7: 08/04/18 04:45 08/04/18 04:45 Labs: Short CBC 08/03/18 08/04/18 Range/Units 09:20 04:45 WBC 17.1 H 26.7 H D (4.3-11.1) K/mcL Hgb 12.0 10.9 L (11.5-15.4) g/dL Hct 37.1 33.3 L (35.3-44.9) % Plt Count 288 281 (140-400) K/mcL Neutrophils # 13.9 H 23.8 H (1.6-8.9) K/mcL BMP 08/03/18 08/04/18 09:20 04:45 Sodium 134 L 134 L Potassium 4.0 4.5 Chloride 102 104 Carbon Dioxide 23 19 L BUN 24 H 30 H Creatinine 1.16 1.32 H Glucose 192 H 257 H Calcium 9.5 9.2 - ABG Interpretation ABG results: PT/INR, D-dimer PT 20.9 Seconds (9.4-12.1) H 07/29/18 05:14 Consult Discharge Plan - Plan Referrals: NONE,PCP [Primary Care Provider] - ([facility] no PCP appointment is needed) Maykel Crandall MD [Partnered Physician] - 08/23/18 9:00 am (This appointment is in [place]) <Chantelle George - Last Filed: 08/04/18 16:57> Hospitalist Progress Note - Encounter Date of Encounter: 08/04/18 - Exam Vitals: Temp Pulse Resp BP Pulse Ox 98.0 F 62 18 129/53 99 08/04/18 16:21 08/04/18 16:21 08/04/18 16:21 08/04/18 16:21 08/04/18 16:21 - Assessment and Plan (1) BRET (acute kidney injury) Current Visit: Yes Status: Resolved (2) CAD (coronary artery disease) Current Visit: Yes Status: Chronic (3) Peripheral vascular disease Current Visit: Yes Status: Chronic (4) Diabetes mellitus, type 2 Current Visit: Yes Status: Chronic (5) Toe ulcer due to DM Current Visit: Yes Status: Acute (6) Osteomyelitis Current Visit: Yes Status: Acute (7) Asymptomatic bacteriuria Current Visit: Yes Status: Acute (8) Leukocytosis Current Visit: Yes Status: Resolved - Time Spent with Patient Total time spent is greater than 50% in coordination of care (as documented) at patient's floor/unit and/or counseling patient: Internal Medicine: Result - Labs CBC & Chem 7: 08/04/18 04:45 08/04/18 04:45 Labs: Short CBC 08/04/18 Range/Units 04:45 WBC 26.7 H D (4.3-11.1) K/mcL Hgb 10.9 L (11.5-15.4) g/dL Hct 33.3 L (35.3-44.9) % Plt Count 281 (140-400) K/mcL Neutrophils # 23.8 H (1.6-8.9) K/mcL BMP 08/04/18 04:45 Sodium 134 L Potassium 4.5 Chloride 104 Carbon Dioxide 19 L BUN 30 H Creatinine 1.32 H Glucose 257 H Calcium 9.2 - ABG Interpretation ABG results: PT/INR, D-dimer PT 20.9 Seconds (9.4-12.1) H 07/29/18 05:14 - Attending Attestation I examined this patient and my medical decision-making was reviewed with the Resident Physician and Medical student. I agree with the documented findings, disposition and treatment plan as described except to the extent set forth below. Patient appeared drowsy during my salvage grinder assessment. She was reassessed shortly after and she appeared confused. She repeats some phrases, responds to verbal commands. Aware of person, time, not place. On physical exam, she appears confused. Neuro exam shows no focal deficits: CN II-XII are intact, limb strength equal bilaterally, reflex exam limited because patient has right foot infection and left lower extremity amputation, and so gait assessment cannot be done as well. Finger to nose exam unremarkable. VS: Reviewed, Labs: reviewed. Patient has OM with peripheral vascular disease: - continue IV antibiotics. Podiatry and vascular following. In regards to altered mental status, she did have surgery late last night could be related to anaesthesia but not completely clear. Does not appear to be TIA/CVA since exam is non-focal. Possibly acute metabolic encephalopathy, will obtain stat labs. If no improvement, may need CT head. <Maninder Manning - Last Filed: 08/04/18 10:46> (1) Osteomyelitis Qualifiers: Osteomyelitis type: unspecified type Osteomyelitis location: foot Laterality: right Qualified Code(s): M86.9 - Osteomyelitis, unspecified (2) Toe ulcer due to DM Qualifiers: Diabetes mellitus type: type 2 Laterality: right Non-pressure ulcer stage: unspecified non-pressure ulcer stage Qualified Code(s): E11.621 - Type 2 diabetes mellitus with foot ulcer; L97.519 - Non-pressure chronic ulcer of other part of right foot with unspecified severity (5) Diabetes mellitus, type 2 Qualifiers: Diabetes mellitus terminal operator insulin use: with chcf use Diabetes mellitus complication status: with circulatory complication Diabetes mellitus complication detail: with other circulatory complications Qualified Code(s): E11.59 - Type 2 diabetes mellitus with other circulatory complications; Z79.4 - superintendent marine oil terminal (current) use of insulin (8) CAD (coronary artery disease) Qualifiers: Coronary Disease-Associated Artery/Lesion type: [place] artery [place] vs. transplanted heart: [place] heart Associated angina: without angina Qualified Code(s): I25.10 - Atherosclerotic heart disease of [place] coronary artery without angina pectoris <Chantelle George - Last Filed: 08/04/18 16:57> (2) CAD (coronary artery disease) Qualifiers: Coronary Disease-Associated Artery/Lesion type: [place] artery [place] vs. transplanted heart: [place] heart Associated angina: without angina Qualified Code(s): I25.10 - Atherosclerotic heart disease of [place] coronary artery without angina pectoris (4) Diabetes mellitus, type 2 Qualifiers: Diabetes mellitus chcf insulin use: with terminal operator use Diabetes mellitus complication status: with circulatory complication Diabetes mellitus complication detail: with other circulatory complications Qualified Code(s): E11.59 - Type 2 diabetes mellitus with other circulatory complications; Z79.4 - superintendent marine oil terminal (current) use of insulin (5) Toe ulcer due to DM Qualifiers: Diabetes mellitus type: type 2 Laterality: right Non-pressure ulcer stage: unspecified non-pressure ulcer stage Qualified Code(s): E11.621 - Type 2 diabetes mellitus with foot ulcer; L97.519 - Non-pressure chronic ulcer of other part of right foot with unspecified severity (6) Osteomyelitis Qualifiers: Osteomyelitis type: unspecified type Osteomyelitis location: foot Laterality: right Qualified Code(s): M86.9 - Osteomyelitis, unspecified (8) Leukocytosis Qualifiers: Leukocytosis type: unspecified Qualified Code(s): D72.829 - Elevated white blood cell count, unspecified
[2018-08-04] MEDS ORDERED: Vancomycin 1 EACH in 0.9 % Sodium Chloride 250 ML IVPB PRN (09:00)
--- NOTE | 2018-08-04 09:30 | Vascular/Endovas Progress Note ---
Date of Encounter: 08/04/18 Time of Encounter: 08:15 - Assessment and plan (1) Peripheral vascular disease Current Visit: Yes Status: Chronic Patient has profound right lower extremity vascular occlusive disease with limb threatening ischemia. Patient is postoperative day #1 following successful extensive and very tedious right iliofemoral endarterectomy. No further revascularization attempts are indicated for plan for this patient. Patient is to proceed on with wound care as directed by Dr. Kyle. Patient may resume her anticoagulation therapy today. I will be out of town for the next 4 days. If there are any vascular questions please contact Dr. Nicole. (2) S/P amputation of limb Current Visit: Yes Status: Chronic Status post previous left through the knee amputation. (3) Atrial fibrillation Current Visit: Yes Status: Chronic Patient has chronic atrial fibrillation. Patient's anticoagulation may be resumed today. (4) Insulin dependent diabetes mellitus Current Visit: Yes Status: Chronic Patient has chronic diabetes with vascular and neurologic manifestations. (5) Morbid obesity with BMI of 50.0-59.9, adult Current Visit: Yes Status: Chronic Patient has advanced and significant morbid obesity. Patient is not a candidate for further ambulation and so therefore bypass grafting and other extensive revascularizations are not indicated. - Subjective Interval history: Patient is postoperative day #1 following a right iliofemoral endarterectomy with patch angioplasty. Patient has no specific complaints but she is confused and appears to be focused on my statement that her right common femoral artery was occluded prior to the operation. Vital Signs, Last 4 Hours Temp Pulse Resp BP Pulse Ox 08/04/18 07:23 98.3 F 63 18 122/55 99 - Physical Examination Vascular: Present: Other (Patient has Doppler signals over the right dorsalis pedis artery. The right groin dressing is intact. There is no signs of hematoma or swelling.) Results 08/04/18 04:45 08/04/18 04:45 Lab Results, Last 24 hours 08/03/18 08/03/18 08/04/18 09:20 09:20 04:45 WBC 17.1 H 26.7 H D Hgb 12.0 10.9 L Hct 37.1 33.3 L Plt Count 288 281 Sodium 134 L Potassium 4.0 Chloride 102 Carbon Dioxide 23 BUN 24 H Creatinine 1.16 Glucose 192 H Calcium 9.5 08/04/18 04:45 WBC Hgb Hct Plt Count Sodium 134 L Potassium 4.5 Chloride 104 Carbon Dioxide 19 L BUN 30 H Creatinine 1.32 H Glucose 257 H Calcium 9.2 Consult Discharge Plan - Plan Referrals: NONE,PCP [Primary Care Provider] - (Patient is from [facility] no PCP appointment is needed) Maykel Crandall MD [Partnered Physician] - 08/23/18 9:00 am (This appointment is in [place])
--- NOTE | 2018-08-04 10:49 | Podiatry Progress Note ---
Date of Encounter: 08/04/18 Time of Encounter: 10:47 - Assessment and Plan (1) Toe ulcer due to DM Current Visit: Yes Status: Acute Assessment: Right foot digit #2 with necrotic ulcers to the distal/medial aspect. S/P right iliofemoral endarterectomy on 06/03/[address] Crandall. Erythema and edema noted to digit #2 extending to forefoot. Patient confused and does not participate in exam appropriately, unable to assess calf pain/general pain. Doppler DP/PT pulses, weak Agree with IV antibiotics Plan: TCPO2 ordered right foot. Continue with pharmacological debridement, Santyl, nickel thick application, 2x daily. Cellulitis vs revascularization May need to consider amputation if no improvement in clinical symptoms, if toe amputation occurs, high probability patient may need BKA. Will continue with medical management at this time. Qualifiers: Diabetes mellitus type: type 2 Laterality: right Non-pressure ulcer stage: unspecified non-pressure ulcer stage Qualified Code(s): E11.621 - Type 2 diabetes mellitus with foot ulcer; L97.519 - Non-pressure chronic ulcer of other part of right foot with unspecified severity (2) Pressure injury of deep tissue of heel Current Visit: Yes Status: Acute Assessment: DTI of right calcaneous Plan: Elevate extremity. Heel medix boots ordered. Places on patient and keep foot elevated at all times when in bed. Subjective Principal diagnosis: Right second toe wound Interval history: Patient awake in bed. Drowsy. Oriented to person only. S/P day 1 revascular ization to right iliofemoral endarterectomy. Objective - Vital Signs Vital Signs: Vital Signs Temp Pulse Resp BP Pulse Ox 08/04/18 07:23 98.3 F 63 18 122/55 99 08/04/18 04:26 98.4 F 70 20 123/59 98 08/04/18 00:00 66 120/57 08/03/18 23:30 65 127/64 08/03/18 23:00 67 132/65 08/03/18 22:30 67 141/66 08/03/18 22:05 67 145/66 08/03/18 21:55 67 143/66 08/03/18 21:50 66 140/65 08/03/18 21:22 98.3 F 63 18 93 08/03/18 21:12 64 16 136/62 93 08/03/18 21:02 98.1 F 64 18 135/60 94 08/03/18 20:52 66 18 138/61 95 08/03/18 20:42 98.3 F 66 18 134/61 96 08/03/18 20:32 66 18 130/52 96 08/03/18 20:22 99.3 F 64 18 138/59 98 08/03/18 14:15 65 15 141/64 95 08/03/18 13:59 66 16 138/67 94 08/03/18 11:01 98.6 F 73 18 144/78 95 Intake and Output 08/03/18 08/04/18 08/04/18 23:59 07:59 15:59 Intake Total 100 / 100 Output Total 500 / 500 650 / 650 Balance -480 / -480 -550 / -550 Intake: IV Fluids Maxipime 2,000 MG In Water for inj. (sterile) 20 ML @ 300 mls/ hr IVP Q12H PETER Rx#:[id number] Oral 100 / 100 Output: Estimated Blood Loss 200 / 200 Urine Amount (Catheter) 300 / 300 Catheter 650 / 650 Other: Weight 115.6 kg Blood Glucose* 203 271 Patient Weight 08/04/18 23:59 Weight 115.6 kg - Exam Exam: Constitiutional: Confused. Oriented to person only. Unable to cooperate in exam Vascular: Doppler pulses DP/PT, RLE CFT sluggish RLE, warm to warm from tibia to toes RLE, L BKA Neurologic: normal plantar resp onse, does not participate in exam Dermatologic: Skin warm. Erythema noted to #2 digit RLE, extends to forefoot. Edema noted RLE, necrotic ulcers noted proximal/medial digit #2 Musculoskeletal: Normal tone RLE, L BKA - Lab Result Diagrams: 08/04/18 04:45 08/04/18 04:45 Labs: Abnormal lab results WBC 26.7 K/mcL (4.3-11.1) H D 08/04/18 04:45 RBC 3.47 M/mcL (3.82-4.97) L 08/04/18 04:45 Hgb 10.9 g/dL (11.5-15.4) L 08/04/18 04:45 Hct 33.3 % (35.3-44.9) L 08/04/18 04:45 RDW 15.8 % (11.5-14.5) H 08/04/18 04:45 Neutrophils # 23.8 K/mcL (1.6-8.9) H 08/04/18 04:45 Monocytes # 1.6 K/mcL (0.0-1.3) H 08/04/18 04:45 ESR >= 130 mm/hr (0-15) H 07/30/18 04:24 PT 20.9 Seconds (9.4-12.1) H 07/29/18 05:14 APTT 40.6 Seconds (26.0-36.0) H 07/29/18 05:14 Sodium 134 mEq/L (136-145) L 08/04/18 04:45 Carbon Dioxide 19 mEq/L (23-29) L 08/04/18 04:45 BUN 30 mg/dL (8-23) H 08/04/18 04:45 Creatinine 1.32 mg/dL (0.60-1.20) H 08/04/18 04:45 Est GFR ( Amer) 49 (> 60) L 08/04/18 04:45 Est GFR (Non-Af Amer) 40 (> 60) L 08/04/18 04:45 Glucose 257 mg/dL (70-105) H 08/04/18 04:45 POC Glucose 271 mg/dL (70-99) H 08/04/18 07:16 Hemoglobin A1c 8.9 % (-5.6) H 07/29/18 05:03 Albumin 3.3 g/dL (3.5-5.7) L 07/29/18 05:14 Albumin/Globulin Ratio 0.9 (1.1-2.2) L 07/29/18 05:14 Urine Clarity Cloudy (Clear) A 07/29/18 14:37 Urine Blood Small (Negative) H 07/29/18 14:37 Urine Nitrite Positive (Negative) A 07/29/18 14:37 Ur Leukocyte Esterase Large (Negative) H 07/29/18 14:37 Urine Microscopic WBC TNTC per hpf (0-3) H 07/29/18 14:37 Ur Squamous Epith Cells Many per lpf (None-Few) H 07/29/18 14:37 Urine Bacteria Many per hpf (None-Few) H 07/29/18 14:37 Vancomycin Trough 30 mcg/mL (5-10) H 08/03/18 09:20 Microbiology, Last 48 Hours 07/29/18 05:14 Blood Culture - Final Peripheral Venipuncture No growth. Final report. 07/29/18 05:03 Blood Culture - Final Peripheral Venipuncture No growth. Final report. 07/29/18 05:35 Wound Culture - Final Second Right Toe Enterococcus faecalis Methicillin Resistant S.aureus Consult Discharge Plan - Plan Referrals: NONE,PCP [Primary Care Provider] - (Patient is from [facility] no PCP appointment is needed) Maykel Crandall MD [Partnered Physician] - 08/23/18 9:00 am (This appointment is in [place])
[2018-08-04] MEDS: Lactobacillus 1 EACH CAP.SPRINK PO SCH (11:31)
[2018-08-04] MEDS: Apixaban 5 MG TABLET PO SCH ×2 (11:32→21:08)
[2018-08-04] MEDS: Spironolactone 25 MG TABLET PO SCH (11:32)
[2018-08-04] MEDS: Folic Acid 1 MG TABLET PO SCH (11:33)
[2018-08-04] MEDS: amLODIPine 5 MG TABLET PO SCH (11:33)
[2018-08-04] MEDS: Gabapentin 100 MG CAPSULE PO SCH ×3 (11:33→21:09)
[2018-08-04] MEDS: Metoprolol XL (24 HR) Succ 50 MG TAB.ER.24H PO SCH (11:34)
[2018-08-04] MEDS: Cholecalciferol (D-3) 1,000 UNIT TABLET PO SCH (11:34)
[2018-08-04] MEDS: 0.9 % Sodium Chloride 1,000 ML IVC SCH ×2 (11:50→21:08)
[2018-08-04 16:54] LABS: ABG Base Excess 0 mEq/L (-2 to 3); ABG HCO3 25 mEq/L (21-27); ABG Oxygen Saturation 94 % (95-98); ABG PCO2 42 mmHg (35-45); ABG PH 7.38 pH Units (7.32-7.45); ABG PO2 74 mmHg (85-104); ABG TCO2 26 mEq/L (20-26)
[2018-08-04 17:47] LABS: Albumin 2.9 g/dL (3.5-5.7); Albumin/Globulin Ratio 0.9 (1.1-2.2); Bilirubin,Direct 0.1 mg/dL (0.0-0.2); Bilirubin,Indirect 0.3 mg/dL (0.0-1.2); Bilirubin,Total 0.4 mg/dL (0.3-1.0); Globulin 3.3 g/dL (2.4-3.5); Total Protein 6.2 g/dL (6.4-8.9)
[2018-08-04] MEDS ORDERED: Gadolinium Contrast Agent (WT Based) IV PRN (18:43)
--- NOTE | 2018-08-04 18:52 | Event Note ---
Date of Encounter: 08/04/18 Time of Encounter: 18:49 Patient seen and examined at bedside. She still appears encephalopathic at this time, however there is no obvious explanation for this. Although her neurological exam is nonfocal, she is unable to answer questions appropriately majority of the time, and she does have a resting tremor which is apparent. She is food which is spilled generally all over her from an attempt to feed herself. This is still inappropriate compared to previous exam. Head CT which was ordered upon first note of encephalopathy is negative and acute labs were also negative for metabolic derangements that may happen to a cause for this encephalopathy. Because there is still no source that is known, I am inclined to get a stat MRI to evaluate this encephalopathy further. There is a chance that this is medication induced especially considering the patient did undergo anesthesia yesterday, however given the timeline it is uncertain that this is the cause.
[2018-08-04 19:07] LABS: Calcium 8.9 mg/dL (8.6-10.3); Potassium 4.6 mEq/L (3.5-5.1)
--- NOTE | 2018-08-04 20:37 | Infectious Disease Consult ---
Date of Encounter: 08/04/18 Time of Encounter: 20:35 Assessment and Plan (1) Sepsis Status: Acute Assessment and plan: likley due to osteomyelitis and UTI need to rule out other causes CT head noted check blood cultures x 2 check CXR continue vancomycin continue zosyn check RIP if all this is non revealing, I will recommend CT chest, Abdomen/pelvis monitor labs prognosis guarded Qualifiers: Sepsis type: sepsis due to unspecified organism Qualified Code(s): A41.9 - Sepsis, unspecified organism (2) Osteomyelitis Status: Acute Assessment and plan: 07/29/2018: X-ray right foot reveals focal erosion suggesting osteomyelitis in the distal tuft of the second toe medially Cultures growing MRSA and Enterococcus faecalis that is ampicillin sensitive Patient already on vancomycin Await podiatry recommendations Goal vancomycin trough around 15 Monitor labs and for drug toxicity Qualifiers: Osteomyelitis type: unspecified type Osteomyelitis location: foot Laterality: right Qualified Code(s): M86.9 - Osteomyelitis, unspecified (3) UTI (urinary tract infection) Status: Acute Assessment and plan: Not sure if it is asymptomatic bacteriuria versus UTI Patient allergic to penicillin Causative organism Escherichia coli R: Unasyn, fluoroquinolone, aminoglycoside Agree with cefepime for now Duration of treatment depends on the clinical picture Qualifiers: Urinary tract infection type: site unspecified Hematuria presence: without hematuria Qualified Code(s): N39.0 - Urinary tract infection, site not specified (4) Toe ulcer due to DM Status: Acute Qualifiers: Diabetes mellitus type: type 2 Laterality: right Non-pressure ulcer stage: unspecified non-pressure ulcer stage Qualified Code(s): E11.621 - Type 2 diabetes mellitus with foot ulcer; L97.519 - Non-pressure chronic ulcer of other part of right foot with unspecified severity (5) S/P amputation of limb Status: Chronic (6) Peripheral vascular disease Status: Chronic (7) Atrial fibrillation Status: Chronic Qualifiers: Atrial fibrillation type: persistent Qualified Code(s): I48.1 - Persistent atrial fibrillation (8) Insulin dependent diabetes mellitus Status: Chronic (9) BRET (acute kidney injury) Status: Resolved Infectious Disease HPI - Data of Consult Patient: new to practice Consult date: 08/04/18 Requesting Physician: Chantelle eGorge MD Primary Care Provider: PCP NONE - Consult Narrative Reason for consult: diabetic foot ulcer History of present illness: Ms. Armenta is a 68 year old female who presented to [facility] on Jul 29 as a transfer from [facility] for diabetic foot ulcer, we are consulted on Aug 04 for antibiotics recommendations. Most of the info was taken from the medical records since patient confused and unable to give me any answers. patient with PMH of coronary artery disease, diabetes, hyperlipidemia, hypertension, myocardial infarction, peripheral artery disease, thyroid disease, TIA and depression was evaluated by podiatry as outpatient for diabetic foot ulcer with possible necrotic toe, they recommended patient present to the ED for evaluation. Since admission, patient has been afebrile with Tmax of 99.6F and no tachyc ardia. Initial WBC was 13 with 79% N that since then has peaked today to 27 with 90%N. initial ESR 130 and BRET Cr of 1.97. Blood culture 07/29 2/2 sets negative. R second toe culture + E faecalis AmpS and MRSA. a Urine cultue was + for E coli R: aminoglycoside, levofloxa in and Unasyn. Xray 07/29 revealed "1. Possible focal erosion suggesting osteomyelitis in the distal tuft of the 2nd toe medially 2. Bony defect in the plantar surface of the calcaneus posteriorly could also represent a focal erosion. CT aortic runoff notes: 2. Extensive right lower extremity atherosclerotic disease with right common femoral artery occlusion extending to the distal superficial femoral artery where there is reconstitution of the distal femoral artery related to patent profunda femoral artery and muscular branches. Triple-vessel runoff to the level of the foot with distal lower leg posterior tibialis occlusion and reconstitution. 3. Extensive left lower extremity atherosclerotic disease with occlusion of the superficial femoral and popliteal artery to the level of the amputation. The profunda femoral artery and muscular branches are patent. 4. Redemonstration of left hepatic lobe ill-defined hypodense foci. As suggested on previous 09/12/2016 exam this may represent focal hepatic steatosis given the shift in distribution compared to the prior exam. Given the history of malignancy dedicated evaluation with MRI of the liver with/without contrast could exclude metastatic disease. 5. Findings suggesting cholelithiasis with no evidence of acute cholecystitis or biliary obstruction. 6. Focal stool in the rectosigmoid junction with mild wall thickening which could relate to impaction. No significant colonic distention proximally. 7. Decreased bone mineral density with prior left lower extremity amputation at the level of the knee. 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 Extensive right lower extremity arthropathy. 08/03: patient underwent right iliofemoral endarterectomy with bovine patch angioplasty by Vascular surgery. since 08/02 WBC has been getting progressively worse --> 17 --> today and worsening mentation per hospitalist note. CC: Chantelle George MD Past Med Surg Social Fam HX - Past Medical History Medical history: coronary artery disease, diabetes, hyperlipidemia, hypertension, myocardial infarction, peripheral artery disease, thyroid disease, TIA Psychiatric history: depression - Past Surgical History Surgical History: appendectomy, carotid endarterectomy, hysterectomy, other Additional surgical history: LBKA - Social History Smoking Status: Former smoker Smokeless Tobacco Status: No Alcohol use: none Drug use: none - Family History Mother Adopted: No Family Member Ethnicity: Non- Living Status: Hx Family Cardiac Disorders: Yes Hx Family Respiratory Disorders: No Hx Family Cancer: No Hx Family GI Disorders: Yes (Diverticulosis) Hx Family Endocrine Disorder: No Hx Family Neuromuscular Disorders: No Hx Family Neurologic Disorders: No Hx Family HEENT Disorders: No Hx Family Autoimmune Disorders: No Infectious Disease-CN:Meds RX: Apixaban [Eliquis] 5 mg PO BID tablet 07/02/15 [Rx] RX: Folic Acid 1 tab PO DAILY #30 tablet 11/14/15 [Rx] Acetaminophen [Non-Aspirin] 650 mg PO HS 05/29/16 [History] Allopurinol [Zyloprim 300 MG] 300 mg PO QAM 09/17/16 [History] Ferrous Sulfate [Iron] 325 mg PO DAILY 09/17/16 [History] GlipiZIDE XL (24 HR) [Glucotrol XL] 20 mg PO 0800 09/17/16 [History] Atorvastatin [Lipitor] 40 mg PO HS 03/24/17 [History] Cholecalciferol (Vitamin D3) [Vitamin D] 50,000 unit PO Q14D 03/24/17 [History] Bisacodyl [Dulcolax] 10 mg PO DAILY PRN 09/22/17 [History] Ipratropium/Albuterol Neb [Duoneb] 3 ml IH QID PRN 09/22/17 [History] Allopurinol [Zyloprim 100 MG] 100 mg PO HS 03/29/18 [History] Furosemide [Lasix] 80 mg PO BID 03/29/18 [History] Spironolactone [Aldactone] 25 mg PO DAILY 03/29/18 [History] Gabapentin [Neurontin] 100 mg PO TID 07/29/18 [History] Insulin DETEMIR [Levemir Flextouch] 30 unit SQ HS 07/29/18 [History] Insulin LISPRO [HumaLOG] 2 - 8 units SQ TIDWM 07/29/18 [History] L. Acidophilus/Pectin, [place] [Acidophilus Capsule] 1 cap PO BID 07/29/18 [History] Metoprolol Succinate [Toprol Xl] 50 mg PO DAILY 07/29/18 [History] Potassium Chloride [K-Tab ER] 10 meq PO DAILY 07/29/18 [History] RX: Escitalopram Oxalate 5 mg PO DAILY 07/29/18 [History] RX: Levothyroxine Sodium 88 mcg PO DAILY 07/29/18 [History] amLODIPine [Norvasc] 5 mg PO DAILY 07/29/18 [History] levoFLOXacin [Levaquin] 250 mg PO DAILY 07/29/18 [History] Allergy/AdvReac Type Severity Reaction Status Date / Time Penicillins [PCN] Allergy Rash Verified 07/29/18 13:41 ROS unobtainable: due to mental status Exam - Constitutional Vitals: Temp Pulse Resp BP Pulse Ox 98.6 F 63 16 123/53 100 08/04/18 20:10 08/04/18 20:10 08/04/18 20:10 08/04/18 20:10 08/04/18 20:10 General appearance: no febrile, no cooperative Exam: Awake opens eyes spontaneously mumbling things I cannot understand - Head Head exam: Absent: atraumatic, normocephalic - Eye Eye exam: Present: EOMI, PERRL. Absent: sclera anicteric - ENT ENT exam: Present: mucous membranes dry, normal exam - Neck Neck exam: Present: full ROM. Absent: meningismus - Respiratory Respiratory exam: Present: CTAB. Absent: rhonchi, wheezes - Cardiovascular Cardiovascular exam: Present: RRR, +S1, +S2 - GI/Abdominal GI/Abdominal exam: Present: soft. Absent: distended, firm, guarding - Extremities Exam Additional comments: Left BKA stump okay Right second toe with black necrotic an ulcerated lesion - Neurological Exam Neurological exam: Present: alert, altered. Absent: oriented X3 - Psychiatric Psychiatric exam: Present: agitated, anxious - Skin Skin exam: Present: normal color. Absent: rash Infectious Disease CN: Results - Labs CBC & Chem 7: 08/05/18 09:21 08/05/18 03:56 Cultures: Cultures 07/29/18 05:14 Blood Culture - Final Peripheral Venipuncture No growth. Final report. 07/29/18 05:03 Blood Culture - Final Peripheral Venipuncture No growth. Final report. 07/29/18 05:35 Wound Culture - Final Second Right Toe Enterococcus faecalis Methicillin Resistant S.aureus 07/29/18 14:37 Urine Culture - Final Urine,Clean Catch Escherichia coli Serology: Serology 07/29/18 Range/Units 14:37 Urine Color Yellow (Yellow) Urine Clarity Cloudy A (Clear) Urine pH 5.5 (5.0-8.0) pH Units Ur Specific [place] 1.017 (1.010-1.025) Urine Protein Negative (Neg-Trace) mg/dL Urine Glucose (UA) Normal (Normal) mg/dL Urine Ketones Negative (Negative) mg/dL Urine Blood Small H (Negative) Urine Nitrite Positive A (Negative) Urine Bilirubin Negative (Negative) Urine Urobilinogen Normal (Normal) mg/dL Ur Leukocyte Esterase Large H (Negative) Urine Microscopic RBC 0-3 (0-3) per hpf Urine Microscopic WBC TNTC H (0-3) per hpf Ur Squamous Epith Cells Many H (None-Few) per lpf Urine Bacteria Many H (None-Few) per hpf Hyaline Casts None Seen (None-Few) per lpf Consult Discharge Plan - Plan Referrals: NONE,PCP [Primary Care Provider] - (Patient is from [facility] no PCP appointment is needed) Maykel Crandall MD [Partnered Physician] - 08/23/18 9:00 am (This appointment is in [place])
[2018-08-04] MEDS: Insulin DETEMIR 100 UNIT/ML X5UNITS SQ SCH (21:09)
[2018-08-05] MEDS: Insulin LISPRO 300 UNITS/3 ML VIAL SQ SCH ×5 (01:24→20:53)
[2018-08-05 04:17] LABS: Basophils # 0.1 K/mcL (0.0-0.2); Basophils % 0.3 %; Eosinophils # 0.1 K/mcL (0.0-0.6); Eosinophils % 0.3 %; Hematocrit 28.5 % (35.3-44.9); Lymphocytes # 0.6 K/mcL (0.6-4.6); Lymphocytes % 3.3 %; Mean Corpuscular HGB Conc 31.9 g/dL (31.6-35.5); Mean Corpuscular Hemoglobin 31.6 pg (28.0-33.3); Mean Platelet Volume 11.6 fL (9.4-12.4); Monocytes % 10.1 %; Neutrophils # 16.4 K/mcL (1.6-8.9); Platelet Count 257 K/mcL (140-400); Red Blood Count 2.88 M/mcL (3.82-4.97); Red Cell Distribution Width 15.9 % (11.5-14.5)
[2018-08-05 04:20] LABS: Hemoglobin 9.1 g/dL (11.5-15.4)
[2018-08-05 04:44] LABS: Calcium 8.6 mg/dL (8.6-10.3)
[2018-08-05] MEDS: *HR* OxyCODONE/APAP 5/325 TABLET PO PRN ×2 (05:24→20:33)
[2018-08-05] MEDS: Cefepime HCl 2,000 MG in Water for inj. (sterile) 20 ML 20 ML IVP SCH (05:24)
[2018-08-05] MEDS ORDERED: Vancomycin 500 MG in 0.9 % Sodium Chloride Mini Bag 100 ML IVPB ONE (07:50)
--- NOTE | 2018-08-05 08:30 | Vascular/[facility] Progress Note ---
Date of Encounter: 08/05/18 Time of Encounter: 07:50 - Assessment and plan (1) Peripheral vascular disease Current Visit: Yes Status: Chronic The patient is postoperative day #2 after right lower extremity endarterectomy. Her wound appears to be healing. She reports adequate pain control. White blood cell count has decreased. Her TCP O2 levels were reviewed and are noted to be abnormal. At this time the patient will continue with wound care and a ntibiotic therapy. - Subjective Interval history: The patient denies fevers or chills. She reports adequate pain control. She denies chest pain or shortness of breath. Vital Signs, Last 4 Hours Temp Pulse Resp BP Pulse Ox 08/05/18 05:33 98.6 F 66 19 119/58 97 - Physical Examination General: Present: Conversant HEENT: Present: Pupils equal Cardiac: Present: Reg Rate and Rhythm Lungs: Present: Normal Breath Sounds Neuro: Present: Alert and responsive Vascular: Present: Surgical incisions (Bandage dry, no hematoma, no fluctuance), Other (Right pedal signals are present.) Abdomen: Present: Soft Results 08/05/18 03:56 08/05/18 03:56 Lab Results, Last 24 hours 08/04/18 08/05/18 08/05/18 17:15 03:56 03:56 WBC 19.6 H Hgb 9.1 L D Hct 28.5 L Plt Count 257 Sodium 138 136 Potassium 4.6 4.0 Chloride 108 H 108 H Carbon Dioxide 21 L 21 L BUN 34 H 33 H Creatinine 1.32 H 1.20 Glucose 185 H 155 H Calcium 8.9 8.6 Total Bilirubin 0.4 AST 11 L ALT 13 Alkaline Phosphatase 71 Consult Discharge Plan - Plan Referrals: NONE,PCP [Primary Care Provider] - ([facility] no PCP appointment is needed) Maykel Crandall MD [Partnered Physician] - 08/23/18 9:00 am (This appointment is in [place])
[2018-08-05] MEDS ORDERED: Ipratropium/Albuterol Neb 3 ML IH PRN (09:00)
[2018-08-05] MEDS: Spironolactone 25 MG TABLET PO SCH (09:46)
[2018-08-05] MEDS: 0.9 % Sodium Chloride 1,000 ML IVC SCH ×3 (09:46→20:34)
[2018-08-05] MEDS: Cholecalciferol (D-3) 1,000 UNIT TABLET PO SCH (09:46)
[2018-08-05] MEDS: Apixaban 5 MG TABLET PO SCH ×2 (09:47→20:33)
[2018-08-05] MEDS: Folic Acid 1 MG TABLET PO SCH (09:47)
[2018-08-05] MEDS: Lactobacillus 1 EACH CAP.SPRINK PO SCH (09:47)
[2018-08-05] MEDS: amLODIPine 5 MG TABLET PO SCH (09:47)
[2018-08-05] MEDS: Metoprolol XL (24 HR) Succ 50 MG TAB.ER.24H PO SCH (09:47)
[2018-08-05] MEDS: Gabapentin 100 MG CAPSULE PO SCH ×3 (09:47→20:33)
--- NOTE | 2018-08-05 09:58 | Internal Med Progress Note ---
<Maninder Manning R - Last Filed: 08/05/18 14:37> Hospitalist Progress Note - Encounter Date of Encounter: 08/05/18 Time of Encounter: 07:50 - Subjective Interval History: Ms Armenta is a 68 YO F who was admitted 07/29/18 for R 2nd toe diabetic ulcer with osteomyelitis. She has a PMHx of CAD, TIIDM, HTN, PVD, and Hypothyroidism. Patient is post-op day 2 from R iliofemoral endarterectomy to provide blood flow to patent R profunda femoris artery system. This morning she is awake and oriented to person and place. She is able to tell me her name, why she is hospitalized, knows here and knows who the President is. She complains of R groin & R heel pain. She states that her pain is well controlled. She denies headache, dizziness, chest pain, SOB, abdominal pain, or nausea. - Exam Vitals: Temp Pulse Resp BP Pulse Ox 98.1 F 60 16 139/63 94 08/05/18 08:26 08/05/18 08:26 08/05/18 08:26 08/05/18 08:26 08/05/18 08:26 Exam: Gen: Alert and oriented to person and place HEENT: Normocephalic, atraumatic; EOMI, PERRL; CV: RRR, no murmurs, gallops or rubs Resp: Traci. basilar wheezes, no rhonchi, rales traci. GI: Bs x4, soft, non-tender to palpation Extremities: Radial pulses intact traci.; L BKA; R 2nd toe medial aspect ulcer, with small escher, with non- blanching erythema with sloughing of skin; R heel ecchymosis stable at 2.5cm and 1.5cm with pain to palpation. Skin: Dry, warm, ecchymosis on forearms bilateral. - Assessment and Plan (1) Altered mental status, unspecified Current Visit: Yes Status: Resolved Assessment and Plan: - Patient alert and oriented x 3 today; Patient knows her name, , where shes at, why shes here, the month and year, and the president. She is much improved but still not baseline mental status. Patient made eye contact during conversation. Lethargic but easy to arouse. - Post - op day 2 following vasc. surg - 08/04/18: In the morning patient was oriented to person and place, was diffi cult to arose and lethargic; In the afternoon patient was oriented to name only, she was unable to state her , where she was, why she was here, what month or year it was, and who the president was. She would repeat her name for each question asked. She had moments of lucid behavior lasting ~10 seconds, where she would answer a question before returning to an un-oriented state where she would repeat her name. Patient failed to make eye contact during conversation with patient . - 08/04/18: Stat ABG, BMP, lactic acid, head CT and ammonia levels were normal - Mental status exams performed t/o night showed continued confusion - Infectious disease consult for leukocytosis: advised getting a CXR, blood culture, and RIP; if those are negative consider vidal CT; continue vanc and cefepime for osteo. - Plan: Ordered blood culture x 2, results pending; RIP, results pending; mental status improved but continue to monitor mental status closely. (2) Osteomyelitis Current Visit: Yes Status: Acute Assessment and Plan: - Patient denies any pain in her R toe - Patient complains for pain in R heel - Currently treated with IV vancomycin and cefepime; Enterococcus and MRSA sensitive to vancomycin - IV Vancomycin and cefepime day 8; started 07/29/18; - Severe R leg ischemia, CODY = 0 with CTA of R leg showing severe occlusion of the R leg femoral artery. - 08/03/18 Vasc surg. (Dr. Crandall) performed right common iliofemoral artery endarterectomy in order to provide pulsatile flow into the patent right profunda femoris artery system - 08/05/18 leukocytosis (19.6) down from 08/04/18 leukocytosis (26.7) temp. of 98.3 - Infection disease consulted for altered mental status with leukocytosis - Plan: Continue vanco and cefepime IV; Blood culture x 2 due to leukocytosis and alerted mental status, results pending; Continue to monitor leukocytosis qAM; Clean and dry dressing change; MRSA contact precautions. (3) Toe ulcer due to DM Current Visit: Yes Status: Acute Assessment and Plan: - Patient with no pain on R 2nd toe - R 2nd toe medial aspect ulcer, small escher, with non- blanching erythema with sloughing of skin - 08/03/18; Vasc. Surgery R iliofemoral artery endarterectomy to restore blood flow; - Culture + for entercoccus and MRSA sensitive to vancomycin - Patient being treated with IV vancomycin and cefepime - HA1C was 8.9 on 07/29/18 - Plan: Continue to monitor 2nd R toe; Dr. Kyle is managing wound care; Clean and dry dressing change (4) Pressure injury of deep tissue of right heel Current Visit: Yes Status: Acute Assessment and Plan: - Podiatry following R DTI to heel - Ecchymosis presented on 08/02/18 as a small spot on her R heel; patient was instructed to wear the air boot - On 08/03/18 podiatry consulted to take a look at larger ~ 2cm x 1.5cm ecchymosis; patient went for vasc. surg. that afternoon - Patient complains of R heel pain today - R ecchymosis stable at ~ 2.5cm x 1.5cm - Plan: Podiatry following; Continue air boot for off loading of heel; Continue to monitor for worsening ecchymosis of R heel (5) Peripheral vascular disease Current Visit: Yes Status: Chronic Assessment and Plan: - Patient L BKA - CODY was 0 completed 07/29/18 with no ankle pulses - Aorta w/ runoff CTA on 08/01/18 ordered by vasc surg showed: "Extensive right lower extremity atherosclerotic disease with right common femoral artery occlusion extending to the distal superficial femoral artery where there is reconstitution of the distal femoral artery related to patent profunda femoral artery and muscular branches. Triple-vessel runoff to the level of the foot with distal lower leg posterior tibialis occlusion and reconstitution. - Patient has significant R leg ischemia and has osteomyelitis and without blood flow to region would be difficult to treat with IV antibiotics as well as poor surgical candidate for osteomyelitis surg. due to poor ability to heal. - 08/03/18; Vascular surgery (Dr. Crandall) performed R iliofemoral endarterectomy to provide pulsatile flow into the patent right profunda femoris artery system. - Surgery was successful; Patient tolerated surgery well with no complications. - Plan: Vasc. surgery following up with Dr. Nicole, plan to remove dressing tomorrow; Podiatry following for Osteo of R 2nd toe and pressure ulcer on R heel; Continue on vancomycin and cefepime for osteo of R leg; Clean and dry dressing change today; (6) BRET (acute kidney injury) Current Visit: Yes Status: Resolved Assessment and Plan: - Post op day 2 from vasc. surg. - Patient Cr is 1.20 - Patient denies past history of kidney disease - Past Cr level from 2018 was as low as (0.92 on 09/22/18) had a 1.7 Cr in 04/06 - Cr on 08/04/18 was 1.32 - Antibiotics for osteo are cefepime and vancomycin - Patient urine culture came back E. coli sensitive to cefepime - Vanc trough high (16) 08/05/18 - Plan: Continue to follow Cr qAM. (7) Diabetes mellitus, type 2 Current Visit: Yes Status: Chronic Assessment and Plan: - Insulin dependent TIIDM - Patient glucose today; post op day 2 = 155 - Home meds: Insulin DETEMIR, glipizide xl - HA1C 07/29/18 = 8.9 - Plan: Continue use sliding scale insulin during inpatient stay. Maintain diabetic diet and monitor kidney function; (8) Constipation Current Visit: Yes Status: Resolved Assessment and Plan: - Patient received rectal suppository 08/02/18 w/ BM x3 and flatus - States no abdominal complaints today - Hasn't had a BM since 08/02/18, admits to flatus - Plan: Continue to monitor; consider for rectal suppository if no BM in the next day (9) Asymptomatic bacteriuria Current Visit: Yes Status: Acute Assessment and Plan: - Patient asymptomatic with no abdominal pain - Cr. 1.20 today - Urine culture came back E. coli which was resistent to Ampicillin, amp/sulbactam, ciprofloxacin, gentamicin, levofloxacin, tobramycin - E.coli sensitive to cefepime - Patient with improving leukocytosis (19.6; 08/05/18) (26.7; 08/04/18) - Plan: Monitor for symptoms, no treatment needed; Patient is being treated for osteomylitis of R leg with cefepime (10) CAD (coronary artery disease) Current Visit: Yes Status: Chronic Assessment and Plan: CAD diagnosed in 2014 Home Meds: Furosemide, amlodipine, apixaban, atorvastatin, metoprolol xl, spironolactone Patient states she had 4 stents placed in 2014 Patient denies SOB or chest pain Patient placed on eliquis due to a - flutter in history Placed on cardiac monitoring Plan: Post op day 2 for vasc. surg. being followed by Dr. Nicole; Monitor BP and cardiac symptoms, continue home meds hold lasix (11) Liver lesion, left lobe Current Visit: Yes Status: Acute Assessment and Plan: - In the left hepatic lobe at the anterior and posterior aspects of lateral segment there are ill defined hypodense areas without expansion. - Plan: Follow up on hepatic hypodense lesions with outpatient MRI and f/u with PCP (12) DVT prophylaxis Current Visit: Yes Status: Acute Assessment and Plan: Eliquis DVT Prophylaxis: eliquis - Time Spent with Patient Total time spent is greater than 50% in coordination of care (as documented) at patient's floor/unit and/or counseling patient: less than 15 minutes Internal Medicine: Result - Labs CBC & Chem 7: 08/05/18 09:21 08/05/18 03:56 Labs: Short CBC 08/05/18 Range/Units 03:56 WBC 19.6 H (4.3-11.1) K/mcL Hgb 9.1 L D (11.5-15.4) g/dL Hct 28.5 L (35.3-44.9) % Plt Count 257 (140-400) K/mcL Neutrophils # 16.4 H (1.6-8.9) K/mcL BMP 08/04/18 08/05/18 17:15 03:56 Sodium 138 136 Potassium 4.6 4.0 Chloride 108 H 108 H Carbon Dioxide 21 L 21 L BUN 34 H 33 H Creatinine 1.32 H 1.20 Glucose 185 H 155 H Calcium 8.9 8.6 Liver Function 08/04/18 Range/Units 17:15 Total Bilirubin 0.4 (0.3-1.0) mg/dL Direct Bilirubin 0.1 (0.0-0.2) mg/dL AST 11 L (13-39) Units/L ALT 13 (7-52) Units/L Alkaline Phosphatase 71 (34-104) Units/L Albumin 2.9 L (3.5-5.7) g/dL - ABG Interpretation ABG results: ABG ABG pH 7.38 pH Units (7.32-7.45) 08/04/18 16:49 ABG pCO2 42 mmHg (35-45) 08/04/18 16:49 ABG pO2 74 mmHg (85-104) L 08/04/18 16:49 ABG O2 Saturation 94 % (95-98) L 08/04/18 16:49 PT/INR, D-dimer PT 20.9 Seconds (9.4-12.1) H 07/29/18 05:14 - Impressions Impressions Head CT 08/04/18 16:47 IMPRESSION: No acute intracranial abnormality. Moderate chronic small vessel ischemic disease with minimal focal left frontal encephalomalacia, probably with some laminar necrosis. Unchanged right occipital encephalomalacia. Stable mild cerebral atrophy. D/ / Ciro Vizcaino / Ciro Vizcaino Interpreting Provider: Ciro Vizcaino Brain MRI 08/04/18 18:43 IMPRESSION: 1. No acute intracranial abnormality. 2. Moderate chronic white matter microvascular ischemic changes. 3. Remote lacunar infarcts in the bifrontal periventricular white matter. 4. High left frontal and right occipital encephalomalacia in keeping with sequela of prior infarcts. D/ / Noel Allen / Noel Allen Interpreting Provider: Noel Allen Consult Discharge Plan - Plan Referrals: NONE,PCP [Primary Care Provider] - (Patient is from [facility] no PCP appointment is needed) Maykel Crandall MD [Partnered Physician] - 08/23/18 9:00 am (This appointment is in [place]) <Chantelle George - Last Filed: 08/05/18 16:37> Hospitalist Progress Note - Encounter Date of Encounter: 08/05/18 - Exam Vitals: Temp Pulse Resp BP Pulse Ox 97.4 F L 64 16 138/62 96 08/05/18 11:08 08/05/18 11:08 08/05/18 11:08 08/05/18 11:08 08/05/18 11:08 - Assessment and Plan (1) BRET (acute kidney injury) Current Visit: Yes Status: Resolved (2) CAD (coronary artery disease) Current Visit: Yes Status: Chronic (3) Peripheral vascular disease Current Visit: Yes Status: Chronic (4) Diabetes mellitus, type 2 Current Visit: Yes Status: Chronic (5) Toe ulcer due to DM Current Visit: Yes Status: Acute (6) Osteomyelitis Current Visit: Yes Status: Acute (7) Asymptomatic bacteriuria Current Visit: Yes Status: Acute (8) Leukocytosis Current Visit: Yes Status: Resolved - Time Spent with Patient Total time spent is greater than 50% in coordination of care (as documented) at patient's floor/unit and/or counseling patient: Internal Medicine: Result - Labs CBC & Chem 7: 08/05/18 16:00 08/05/18 03:56 Labs: Short CBC 08/05/18 08/05/18 08/05/18 Range/Units 03:56 09:21 16:00 WBC 19.6 H 19.7 H 18.8 H (4.3-11.1) K/mcL Hgb 9.1 L D 9.3 L 9.3 L (11.5-15.4) g/dL Hct 28.5 L 29.8 L 29.0 L (35.3-44.9) % Plt Count 257 278 246 (140-400) K/mcL Neutrophils # 16.4 H 16.4 H 15.1 H (1.6-8.9) K/mcL BMP 08/04/18 08/05/18 17:15 03:56 Sodium 138 136 Potassium 4.6 4.0 Chloride 108 H 108 H Carbon Dioxide 21 L 21 L BUN 34 H 33 H Creatinine 1.32 H 1.20 Glucose 185 H 155 H Calcium 8.9 8.6 Liver Function 08/04/18 Range/Units 17:15 Total Bilirubin 0.4 (0.3-1.0) mg/dL Direct Bilirubin 0.1 (0.0-0.2) mg/dL AST 11 L (13-39) Units/L ALT 13 (7-52) Units/L Alkaline Phosphatase 71 (34-104) Units/L Albumin 2.9 L (3.5-5.7) g/dL - ABG Interpretation ABG results: ABG ABG pH 7.38 pH Units (7.32-7.45) 08/04/18 16:49 ABG pCO2 42 mmHg (35-45) 08/04/18 16:49 ABG pO2 74 mmHg (85-104) L 08/04/18 16:49 ABG O2 Saturation 94 % (95-98) L 08/04/18 16:49 PT/INR, D-dimer PT 20.9 Seconds (9.4-12.1) H 07/29/18 05:14 - Impressions Impressions Head CT 08/04/18 16:47 IMPRESSION: No acute intracranial abnormality. Moderate chronic small vessel ischemic disease with minimal focal left frontal encephalomalacia, probably with some laminar necrosis. Unchanged right occipital encephalomalacia. Stable mild cerebral atrophy. D/ / Ciro Vizcaino / Ciro Vizcaino Interpreting Provider: Ciro Vizcaino Brain MRI 08/04/18 18:43 IMPRESSION: 1. No acute intracranial abnormality. 2. Moderate chronic white matter microvascular ischemic changes. 3. Remote lacunar infarcts in the bifrontal periventricular white matter. 4. High left frontal and right occipital encephalomalacia in keeping with sequela of prior infarcts. D/ / Noel Allen / Noel Allen Interpreting Provider: Noel Allen Chest X-Ray 08/05/18 07:45 IMPRESSION: Stable chest with no new acute cardiopulmonary findings. D/ / Latosha Gonzalez MD / Latosha Gonzalez MD Interpreting Provider: Latosha Gonzalez MD - Attending Attestation I examined this patient and my medical decision-making was reviewed with the Medical Student and Resident Physician. I agree with the documented findings, disposition and treatment plan as described except to the extent set forth below. Patient mental status improved today, she is AAO x3, pleasant. But there is st ill some confusion. Post op pain relatively controlled. Denies fevers/chills. Physical exam shows her in no acute distress, cooperates with exam, AAO x3, does have difficult using the remote and briefly appeared confused. Right 2nd toe ulcer unchanged. VS: reviewed, Labs: reviewed. A/P: Sepsis, Osteomyelitis, UTI , altered mental status, toe ulcer. Continue antibiotics per ID recommendations - Vanc and Macrobid now based on both the wound cultures growing E faecalis, MRSA and urine cultures growing MDRO E coli, Podiatry and Vascular following. MRI and CT head negative, labs unremarkable not clearly explaining patient periodic episodes of confusion, may need Neuro eval. <Maninder Manning - Last Filed: 08/05/18 14:37> (1) Altered mental status, unspecified Qualifiers: Altered mental status type: unspecified Qualified Code(s): R41.82 - Altered mental status, unspecified (2) Osteomyelitis Qualifiers: Osteomyelitis type: unspecified type Osteomyelitis location: foot Laterality: right Qualified Code(s): M86.9 - Osteomyelitis, unspecified (3) Toe ulcer due to DM Qualifiers: Diabetes mellitus type: type 2 Laterality: right Non-pressure ulcer stage: unspecified non-pressure ulcer stage Qualified Code(s): E11.621 - Type 2 diabetes mellitus with foot ulcer; L97.519 - Non-pressure chronic ulcer of other part of right foot with unspecified severity (7) Diabetes mellitus, type 2 Qualifiers: Diabetes mellitus jail insulin use: with jail use Diabetes mellitus complication status: with circulatory complication Diabetes mellitus complication detail: with other circulatory complications Qualified Code(s): E11.59 - Type 2 diabetes mellitus with other circulatory complications; Z79.4 - terminal makeup operator (current) use of insulin (10) CAD (coronary artery disease) Qualifiers: Coronary Disease-Associated Artery/Lesion type: [place] artery [place] vs. transplanted heart: [place] heart Associated angina: without angina Qualified Code(s): I25.10 - Atherosclerotic heart disease of [place] coronary artery without angina pectoris <Chantelle George - Last Filed: 08/05/18 16:37> (2) CAD (coronary artery disease) Qualifiers: Coronary Disease-Associated Artery/Lesion type: [place] artery [place] vs. transplanted heart: [place] heart Associated angina: without angina Qualified Code(s): I25.10 - Atherosclerotic heart disease of [place] coronary artery without angina pectoris (4) Diabetes mellitus, type 2 Qualifiers: Diabetes mellitus jail insulin use: with termite helper use Diabetes mellitus complication status: with circulatory complication Diabetes mellitus complication detail: with other circulatory complications Qualified Code(s): E11.59 - Type 2 diabetes mellitus with other circulatory complications; Z79.4 - terminal makeup operator (current) use of insulin (5) Toe ulcer due to DM Qualifiers: Diabetes mellitus type: type 2 Laterality: right Non-pressure ulcer stage: unspecified non-pressure ulcer stage Qualified Code(s): E11.621 - Type 2 diabetes mellitus with foot ulcer; L97.519 - Non-pressure chronic ulcer of other part of right foot with unspecified severity (6) Osteomyelitis Qualifiers: Osteomyelitis type: unspecified type Osteomyelitis location: foot Laterality: right Qualified Code(s): M86.9 - Osteomyelitis, unspecified (8) Leukocytosis Qualifiers: Leukocytosis type: unspecified Qualified Code(s): D72.829 - Elevated white blood cell count, unspecified
--- NOTE | 2018-08-05 10:25 | Infectious Disease Progress No ---
Date of Encounter: 08/05/18 Time of Encounter: 10:24 - Assessment and Plan (1) Sepsis Current Visit: No Status: Acute The patient had leukocytosis and tachypnea on admission with BRET and AMS. Likely secondary to osteomyelitis and UTI. Improved. WBC improved today. Tachycardia and tachypnea have resolved. Blood cultures drawn 07/29/18 were negative x 2 sets. Repeat blood cultures drawn 08/05/18 are pending x 2 sets. Recommendations: Await repeat blood cultures. Get CXR. Check RIP. Consider CT of the abdomen and pelvis if other workup non-revealing. Wound care per the Podiatry team. Continue Vancomycin IV. Pharmacy to dose. Goal trough ~15. Discontinue Cefepime. Start nitrofurantoin 100mg PO BID. Duration of treatment depends on the clinical picture. Monitor renal function and for drug toxicity and dose-adjust antibiotics. Qualifiers: Sepsis type: sepsis due to unspecified organism Qualified Code(s): A41.9 - Sepsis, unspecified organism (2) Osteomyelitis Current Visit: Yes Status: Acute Location: Right foot distal 2nd toe. Causative organism: MRSA and E. faecalis. Secondary to chronic non-healing DFU. Podiatry consulted and following. Currently on Vancomycin. Qualifiers: Osteomyelitis type: unspecified type Osteomyelitis location: foot Laterality: right Qualified Code(s): M86.9 - Osteomyelitis, unspecified (3) UTI (urinary tract infection) Current Visit: Yes Status: Acute Causative organism: E. coli. UTI vs. asymptomatic bacteriurua. Currently on Cefepime. Qualifiers: Urinary tract infection type: site unspecified Hematuria presence: without hematuria Qualified Code(s): N39.0 - Urinary tract infection, site not specified (4) BRET (acute kidney injury) Current Visit: Yes Status: Resolved Likely secondary to sepsis. Resolved. (5) Peripheral vascular disease Current Visit: Yes Status: Chronic Status post right iliofemoral endarterectomy 08/03/[address] Nicole. TCPO2 monitoring pending. (6) Toe ulcer due to DM Current Visit: Yes Status: Acute Qualifiers: Diabetes mellitus type: type 2 Laterality: right Non-pressure ulcer stage: unspecified non-pressure ulcer stage Qualified Code(s): E11.621 - Type 2 diabetes mellitus with foot ulcer; L97.519 - Non-pressure chronic ulcer of other part of right foot with unspecified severity (7) S/P amputation of limb Current Visit: Yes Status: Chronic (8) Atrial fibrillation Current Visit: Yes Status: Chronic Qualifiers: Atrial fibrillation type: persistent Qualified Code(s): I48.1 - Persistent atrial fibrillation (9) Insulin dependent diabetes mellitus Current Visit: Yes Status: Chronic Strict glucose control. - Subjective Interval history: Patient seen and examined. No acute events noted overnight. Patient resting quietly in bed. Complains of pain to the right foot. He nicely fevers or chills or rigors. Denies chest pain, shortness of breath, or cough. Denies nausea, vomiting, diarrhea. She states she has not had a bowel movement since b efore she came to the hospital. She denies abdominal pain or urinary complaints. She denies any oral thrush or new skin lesions. Infect Dis PN-Objective Data - Labs CBC & Chem 7: 08/05/18 09:21 08/05/18 03:56 Labs: Laboratory Results - last 24 hr 08/04/18 08/04/18 08/04/18 11:06 16:49 17:15 WBC RBC Hgb Hct MCV MCH MCHC RDW Plt Count MPV Immature Gran % Seg Neutrophils % Lymphocytes % Monocytes % Eosinophils % Basophils % Neutrophils # Lymphocytes # Monocytes # Eosinophils # Basophils # Sample Site L Radial ABG pH 7.38 ABG pCO2 42 ABG pO2 74 L ABG HCO3 25 ABG Total CO2 26 ABG O2 Saturation 94 L ABG Base Excess 0 Guilherme Test Positive O2 Delivery Device Cannula Inspired O2 32.0 Sodium Potassium Chloride Carbon Dioxide BUN Creatinine Est GFR ( Amer) Est GFR (Non-Af Amer) BUN/Creatinine Ratio Glucose POC Glucose 244 H Calculated Osmolality Lactic Acid Calcium Total Bilirubin Direct Bilirubin Indirect Bilirubin AST ALT Alkaline Phosphatase Ammonia 28 Serum Total Protein Albumin Globulin Albumin/Globulin Ratio Vancomycin Trough 08/04/18 08/04/18 08/04/18 17:15 17:15 20:15 WBC RBC Hgb Hct MCV MCH MCHC RDW Plt Count MPV Immature Gran % Seg Neutrophils % Lymphocytes % Monocytes % Eosinophils % Basophils % Neutrophils # Lymphocytes # Monocytes # Eosinophils # Basophils # Sample Site ABG pH ABG pCO2 ABG pO2 ABG HCO3 ABG Total CO2 ABG O2 Saturation ABG Base Excess Guilherme Test O2 Delivery Device Inspired O2 Sodium 138 Potassium 4.6 Chloride 108 H Carbon Dioxide 21 L BUN 34 H Creatinine 1.32 H Est GFR ( Amer) 49 L Est GFR (Non-Af Amer) 40 L BUN/Creatinine Ratio 26 Glucose 185 H POC Glucose 198 H Calculated Osmolality 298 Lactic Acid 1.0 Calcium 8.9 Total Bilirubin 0.4 Direct Bilirubin 0.1 Indirect Bilirubin 0.3 AST 11 L ALT 13 Alkaline Phosphatase 71 Ammonia Serum Total Protein 6.2 L Albumin 2.9 L Globulin 3.3 Albumin/Globulin Ratio 0.9 L Vancomycin Trough 08/05/18 08/05/18 08/05/18 01:22 03:56 03:56 WBC 19.6 H RBC 2.88 L Hgb 9.1 L D Hct 28.5 L MCV 99.0 MCH 31.6 MCHC 31.9 RDW 15.9 H Plt Count 257 MPV 11.6 Immature Gran % 2.0 Seg Neutrophils % 84.0 Lymphocytes % 3.3 Monocytes % 10.1 Eosinophils % 0.3 Basophils % 0.3 Neutrophils # 16.4 H Lymphocytes # 0.6 Monocytes # 2.0 H Eosinophils # 0.1 Basophils # 0.1 Sample Site ABG pH ABG pCO2 ABG pO2 ABG HCO3 ABG Total CO2 ABG O2 Saturation ABG Base Excess Guilherme Test O2 Delivery Device Inspired O2 Sodium 136 Potassium 4.0 Chloride 108 H Carbon Dioxide 21 L BUN 33 H Creatinine 1.20 Est GFR ( Amer) 54 L Est GFR (Non-Af Amer) 45 L BUN/Creatinine Ratio 28 H Glucose 155 H POC Glucose 166 H Calculated Osmolality 292 Lactic Acid Calcium 8.6 Total Bilirubin Direct Bilirubin Indirect Bilirubin AST ALT Alkaline Phosphatase Ammonia Serum Total Protein Albumin Globulin Albumin/Globulin Ratio Vancomycin Trough 08/05/18 08/05/18 08/05/18 03:56 05:35 08:11 WBC RBC Hgb Hct MCV MCH MCHC RDW Plt Count MPV Immature Gran % Seg Neutrophils % Lymphocytes % Monocytes % Eosinophils % Basophils % Neutrophils # Lymphocytes # Monocytes # Eosinophils # Basophils # Sample Site ABG pH ABG pCO2 ABG pO2 ABG HCO3 ABG Total CO2 ABG O2 Saturation ABG Base Excess Guilherme Test O2 Delivery Device Inspired O2 Sodium Potassium Chloride Carbon Dioxide BUN Creatinine Est GFR ( Amer) Est GFR (Non-Af Amer) BUN/Creatinine Ratio Glucose POC Glucose 157 H 176 H Calculated Osmolality Lactic Acid Calcium Total Bilirubin Direct Bilirubin Indirect Bilirubin AST ALT Alkaline Phosphatase Ammonia Serum Total Protein Albumin Globulin Albumin/Globulin Ratio Vancomycin Trough 16 H Cultures: Cultures 07/29/18 05:14 Blood Culture - Final Peripheral Venipuncture No growth. Final report. 07/29/18 05:03 Blood Culture - Final Peripheral Venipuncture No growth. Final report. 07/29/18 05:35 Wound Culture - Final Second Right Toe Enterococcus faecalis Methicillin Resistant S.aureus 07/29/18 14:37 Urine Culture - Final Urine,Clean Catch Escherichia coli Serology 07/29/18 Range/Units 14:37 Urine Color Yellow (Yellow) Urine Clarity Cloudy A (Clear) Urine pH 5.5 (5.0-8.0) pH Units Ur Specific [place] 1.017 (1.010-1.025) Urine Protein Negative (Neg-Trace) mg/dL Urine Glucose (UA) Normal (Normal) mg/dL Urine Ketones Negative (Negative) mg/dL Urine Blood Small H (Negative) Urine Nitrite Positive A (Negative) Urine Bilirubin Negative (Negative) Urine Urobilinogen Normal (Normal) mg/dL Ur Leukocyte Esterase Large H (Negative) Urine Microscopic RBC 0-3 (0-3) per hpf Urine Microscopic WBC TNTC H (0-3) per hpf Ur Squamous Epith Cells Many H (None-Few) per lpf Urine Bacteria Many H (None-Few) per hpf Hyaline Casts None Seen (None-Few) per lpf - Impressions Impressions Head CT 08/04/18 16:47 IMPRESSION: No acute intracranial abnormality. Moderate chronic small vessel ischemic disease with minimal focal left frontal encephalomalacia, probably with some laminar necrosis. Unchanged right occipital encephalomalacia. Stable mild cerebral atrophy. D/ / Ciro Vizcaino / Ciro Vizcaino Interpreting Provider: Ciro Vizcaino Brain MRI 08/04/18 18:43 IMPRESSION: 1. No acute intracranial abnormality. 2. Moderate chronic white matter microvascular ischemic changes. 3. Remote lacunar infarcts in the bifrontal periventricular white matter. 4. High left frontal and right occipital encephalomalacia in keeping with sequela of prior infarcts. D/ / Noel Allen / Noel Allen Interpreting Provider: Noel Allen Exam - Constitutional Vitals: Temp Pulse Resp BP Pulse Ox 98.1 F 60 16 139/63 94 08/05/18 08:26 08/05/18 08:26 08/05/18 08:26 08/05/18 08:26 08/05/18 08:26 General appearance: cooperative, no acute distress, obese - Head Head exam: Present: atraumatic, normal inspection, normocephalic - Eye Eye exam: Present: EOMI, normal appearance, PERRL Pupils: Present: normal accommodation - ENT ENT exam: Present: mucous membranes moist - Neck Neck exam: Present: normal inspection - Respiratory Respiratory exam: Present: CTAB. Absent: rales, respiratory distress, rhonchi, wheezes - Cardiovascular Cardiovascular exam: Present: RRR, +S1, +S2 - GI/Abdominal GI/Abdominal exam: Present: distended (Obese), normal bowel sounds, soft. Absent: tenderness Additional comments: Royal catheter noted to be draining clear yellow urine. - Extremities Exam Extremities exam: Present: tenderness (Right foot). Absent: normal inspection (Left AKA stump without abnormality. Right foot dressing is clean, dry, and i ntact.), pedal edema - Neurological Exam Neurological exam: Present: alert, oriented X3, no focal deficits - Psychiatric Psychiatric exam: Present: normal affect, normal mood - Skin Skin exam: Present: dry, intact, normal color, warm - Additional findings Additional findings: Right groin dressing with small amount of shadow drainage noted. Consult Discharge Plan - Plan Referrals: NONE,PCP [Primary Care Provider] - (Patient is from [facility] no PCP appointment is needed) Maykel Crandall MD [Partnered Physician] - 08/23/18 9:00 am (This appointment is in [place]) - Attending Attestation I examined this patient and my medical decision-making was reviewed with the Resident Physician. I agree with the documented findings, disposition and treatment plan as described except to the extent set forth below.
[2018-08-05 10:44] LABS: Basophils # 0.1 K/mcL (0.0-0.2); Basophils % 0.5 %; Eosinophils # 0.1 K/mcL (0.0-0.6); Eosinophils % 0.6 %; Hematocrit 29.8 % (35.3-44.9); Hemoglobin 9.3 g/dL (11.5-15.4); Immature Granulocytes % 1.7 % (0-4); Lymphocytes # 0.8 K/mcL (0.6-4.6); Lymphocytes % 3.9 %; Mean Corpuscular HGB Conc 31.2 g/dL (31.6-35.5); Mean Corpuscular Volume 99.3 fL (83.0-100.0); Mean Platelet Volume 12.1 fL (9.4-12.4); Monocytes % 10.2 %; Neutrophils # 16.4 K/mcL (1.6-8.9); Platelet Count 278 K/mcL (140-400); Segmented Neutrophils % 83.1 %
[2018-08-05] MEDS: *HR* HYDROcodone/Acet 5/325 mg TABLET PO PRN (11:28)
--- NOTE | 2018-08-05 13:06 | Podiatry Progress Note ---
Date of Encounter: 08/05/18 Time of Encounter: 12:15 - Assessment and Plan (1) Toe ulcer due to DM Current Visit: Yes Status: Acute Assessment: Patient mental status improved from yesterday Right foot digit #2 with necrotic ulcers to the distal/medial aspect. S/P right iliofemoral endarterectomy on 06/03/[address] Crandall. Erythema and edema noted to digit #2 extending to forefoot, slight improvement since yesterday Reports pain to right calcaneous Doppler DP/PT pulses, weak Agree with IV antibiotics Foot xray 07/29 suspicious for OM. 07/29 ESR >130 WBC 19.7 TCPO2 right below 11, mid calf 9, ankle 11, and foot 25- consistent with healing of foot, abnormal below knee to ankle. No fevers overnight ID managing ATB XR/XR foot 3V RT IMPRESSION: 1. Possible focal erosion suggesting osteomyelitis in the distal tuft of the 2nd toe medially 2. Bony defect in the plantar surface of the calcaneus posteriorly could also represent a focal erosion. 3. The findings were sent to the Radiology Results Communication Center at 3:45 pm on 07/29/2018to be communicated to a licensed caregiver. D/ / Nawaf Sainz MD / Nawaf Sainz MD Interpreting Provider: Nawaf Sainz MD Plan: Discussed with Dr. Kyle surgical vs conservative management at this time, will continue with conservative management at this time Continue with pharmacological debridement, Santyl, nickel thick application, 2x daily. May need to consider amputation if no improvement in clinical symptoms, if toe amputation occurs, high probability patient may need BKA. Qualifiers: Diabetes mellitus type: type 2 Laterality: right Non-pressure ulcer stage: unspecified non-pressure ulcer stage Qualified Code(s): E11.621 - Type 2 diabetes mellitus with foot ulcer; L97.519 - Non-pressure chronic ulcer of other part of right foot with unspecified severity (2) Pressure injury of deep tissue of heel Current Visit: Yes Status: Acute Assessment: DTI of right calcaneous Plan: Elevate extremity. Placed allevyn foam dressing to right calcaneous Heel medix boot in place, keep foot elevated at all times when in bed to promote offloading of calcaneous Subjective Principal diagnosis: Right second toe wound Interval history: Patient awake in bed. Drowsy. Oriented to person only. S/P day 1 revascularization to right iliofemoral endarterectomy. Objective - Vital Signs Vital Signs: Vital Signs Temp Pulse Resp BP Pulse Ox 08/05/18 11:08 97.4 F L 64 16 138/62 96 08/05/18 08:26 98.1 F 60 16 139/63 94 08/05/18 05:33 98.6 F 66 19 119/58 97 08/05/18 00:40 97.8 F 64 18 115/42 96 08/05/18 00:13 95 08/04/18 20:10 98.6 F 63 16 123/53 100 08/04/18 17:00 61 20 97 08/04/18 16:21 98.0 F 62 18 129/53 99 08/04/18 15:00 68 18 98 Intake and Output 08/04/18 08/05/18 08/05/18 23:59 07:59 15:59 Intake Total 1020 / 1020 1000 / 1000 Output Total 340 / 340 520 / 520 225 / 225 Balance 680 / 680 480 / 480 -225 / -225 Intake: IV Fluids 1020 / 1020 1000 / 1000 0.9 % Sodium Chloride 1,000 ML 1000 / 1000 1000 / 1000 @ 100 mls/hr IVC .Q10H [facility] Rx#: [id number] Maxipime 2,000 MG In Water for inj. (sterile) 20 ML @ 300 mls/ hr IVP Q12H [facility] Rx#:[id number] Output: Urine 400 / 400 Catheter 340 / 340 120 / 120 225 / 225 Other: Stool Size Large Stool Consistency liquid Stool Color Brown Green Blood Glucose* 198 157 193 - Exam Exam: Constitiutional: Alert and oriented x 3. No acute distress noted. Vascular: Doppler pulses DP/PT, RLE CFT sluggish RLE, warm to warm from tibia to toes RLE, L BKA, no calf pain with squeeze RLE Neurologic: normal plantar response RLE, does not participate in exam Dermatologic: Skin warm. Erythema noted to #2 digit RLE, Edema noted RLE, necrotic ulcers noted proximal/medial digit #2. Ecchymosis noted to right calf. Musculoskeletal: Normal tone RLE, L BKA - Lab Result Diagrams: 08/05/18 09:21 01/17/19 03:56 Labs: Abnormal lab results WBC 19.7 K/mcL (4.3-11.1) H 08/05/18 09:21 RBC 3.00 M/mcL (3.82-4.97) L 08/05/18 09:21 Hgb 9.3 g/dL (11.5-15.4) L 08/05/18 09:21 Hct 29.8 % (35.3-44.9) L 08/05/18 09:21 MCHC 31.2 g/dL (31.6-35.5) L 08/05/18 09:21 RDW 16.0 % (11.5-14.5) H 08/05/18 09:21 Neutrophils # 16.4 K/mcL (1.6-8.9) H 08/05/18 09:21 Monocytes # 2.0 K/mcL (0.0-1.3) H 08/05/18 09:21 ESR >= 130 mm/hr (0-15) H 07/30/18 04:24 PT 20.9 Seconds (9.4-12.1) H 07/29/18 05:14 APTT 40.6 Seconds (26.0-36.0) H 07/29/18 05:14 ABG pO2 74 mmHg (85-104) L 08/04/18 16:49 ABG O2 Saturation 94 % (95-98) L 08/04/18 16:49 Chloride 108 mEq/L (98-107) H 08/05/18 03:56 Carbon Dioxide 21 mEq/L (23-29) L 08/05/18 03:56 BUN 33 mg/dL (8-23) H 08/05/18 03:56 Est GFR ( Amer) 54 (> 60) L 08/05/18 03:56 Est GFR (Non-Af Amer) 45 (> 60) L 08/05/18 03:56 BUN/Creatinine Ratio 28 (6-26) H 08/05/18 03:56 Glucose 155 mg/dL (70-105) H 08/05/18 03:56 POC Glucose 176 mg/dL (70-99) H 08/05/18 08:11 Hemoglobin A1c 8.9 % (-5.6) H 07/29/18 05:03 AST 11 Units/L (13-39) L 08/04/18 17:15 Serum Total Protein 6.2 g/dL (6.4-8.9) L 08/04/18 17:15 Albumin 2.9 g/dL (3.5-5.7) L 08/04/18 17:15 Albumin/Globulin Ratio 0.9 (1.1-2.2) L 08/04/18 17:15 Urine Clarity Cloudy (Clear) A 07/29/18 14:37 Urine Blood Small (Negative) H 07/29/18 14:37 Urine Nitrite Positive (Negative) A 07/29/18 14:37 Ur Leukocyte Esterase Large (Negative) H 07/29/18 14:37 Urine Microscopic WBC TNTC per hpf (0-3) H 07/29/18 14:37 Ur Squamous Epith Cells Many per lpf (None-Few) H 07/29/18 14:37 Urine Bacteria Many per hpf (None-Few) H 07/29/18 14:37 Vancomycin Trough 16 mcg/mL (5-10) H 08/05/18 03:56 Microbiology, Last 48 Hours 08/05/18 09:21 Blood Culture - Preliminary Peripheral Venipuncture Culture is incubating and being continuously monitored for growth. Final report to follow. 08/05/18 08:52 Blood Culture - Preliminary Peripheral Venipuncture Culture is incubating and being continuously monitored for growth. Final report to follow. Consult Discharge Plan - Plan Referrals: NONE,PCP [Primary Care Provider] - (Patient is from [facility] no PCP appointment is needed) Maykel Crandall MD [Partnered Physician] - 08/23/18 9:00 am (This appointment is in [place])
[2018-08-05 15:09] LABS: Adenovirus Not Detected (Not Detect); Bordetella Pertussis Not Detected (Not Detect); Chlamydophila pneumoniae Not Detected (Not Detect); Coronavirus 229E Not Detected (Not Detect); Coronavirus HKU1 Not Detected (Not Detect); Coronavirus NL63 Not Detected (Not Detect); Coronavirus OC43 Not Detected (Not Detect); Human Metapneumovirus Not Detected (Not Detect); Human Rhinovirus/Enterovirus Not Detected (Not Detect); Influenza A Subtype 2009 H1 Not Detected (Not Detect); Influenza A Untypeable Not Detected (Not Detect); Influenza B Not Detected (Not Detect); Mycoplasma pneumoniae Not Detected (Not Detect); Parainfluenza Virus 1 Not Detected (Not Detect); Parainfluenza Virus 2 Not Detected (Not Detect); Parainfluenza Virus 3 Not Detected (Not Detect); Parainfluenza Virus 4 Not Detected (Not Detect); Respiratory Syncytial Virus Not Detected (Not Detect)
[2018-08-05 16:12] LABS: Basophils # 0.1 K/mcL (0.0-0.2); Basophils % 0.4 %; Eosinophils # 0.2 K/mcL (0.0-0.6); Eosinophils % 1.2 %; Hemoglobin 9.3 g/dL (11.5-15.4); Immature Granulocytes % 2.1 % (0-4); Lymphocytes # 0.9 K/mcL (0.6-4.6); Lymphocytes % 4.7 %; Mean Corpuscular HGB Conc 32.1 g/dL (31.6-35.5); Mean Corpuscular Hemoglobin 31.7 pg (28.0-33.3); Mean Platelet Volume 11.4 fL (9.4-12.4); Monocytes # 2.1 K/mcL (0.0-1.3); Neutrophils # 15.1 K/mcL (1.6-8.9); Platelet Count 246 K/mcL (140-400); Red Blood Count 2.93 M/mcL (3.82-4.97); Red Cell Distribution Width 15.9 % (11.5-14.5); Segmented Neutrophils % 80.6 %
[2018-08-05] MEDS: Nitrofurantoin (BID) 100 MG CAPSULE PO SCH (17:31)
[2018-08-05] MEDS: Insulin DETEMIR 100 UNIT/ML X5UNITS SQ SCH (20:34)
[2018-08-06] MEDS: *HR* HYDROcodone/Acet 5/325 mg TABLET PO PRN (03:41)
[2018-08-06 04:17] LABS: Basophils # 0.1 K/mcL (0.0-0.2); Basophils % 0.8 %; Eosinophils # 0.4 K/mcL (0.0-0.6); Eosinophils % 2.3 %; Hematocrit 28.5 % (35.3-44.9); Hemoglobin 8.9 g/dL (11.5-15.4); Immature Granulocytes % 3.5 % (0-4); Lymphocytes # 0.9 K/mcL (0.6-4.6); Lymphocytes % 5.7 %; Mean Corpuscular HGB Conc 31.2 g/dL (31.6-35.5); Mean Corpuscular Hemoglobin 31.1 pg (28.0-33.3); Mean Corpuscular Volume 99.7 fL (83.0-100.0); Mean Platelet Volume 11.6 fL (9.4-12.4); Monocytes # 1.8 K/mcL (0.0-1.3); Monocytes % 11.5 %; Neutrophils # 11.9 K/mcL (1.6-8.9); Nucleated Red Blood Cells 0.1 /100 WBC (0); Platelet Count 253 K/mcL (140-400); Red Blood Count 2.86 M/mcL (3.82-4.97); Segmented Neutrophils % 76.2 %
[2018-08-06 04:35] LABS: Calcium 8.4 mg/dL (8.6-10.3); Potassium 4.5 mEq/L (3.5-5.1)
[2018-08-06] MEDS ORDERED: Vancomycin 500 MG in 0.9 % Sodium Chloride Mini Bag 100 ML IVPB ONE (07:40)
[2018-08-06] MEDS: Spironolactone 25 MG TABLET PO SCH (08:16)
[2018-08-06] MEDS: Gabapentin 100 MG CAPSULE PO SCH ×3 (08:16→21:12)
[2018-08-06] MEDS: Metoprolol XL (24 HR) Succ 50 MG TAB.ER.24H PO SCH (08:16)
[2018-08-06] MEDS: Lactobacillus 1 EACH CAP.SPRINK PO SCH (08:16)
[2018-08-06] MEDS: Cholecalciferol (D-3) 1,000 UNIT TABLET PO SCH (08:16)
[2018-08-06] MEDS: Folic Acid 1 MG TABLET PO SCH (08:16)
[2018-08-06] MEDS: amLODIPine 5 MG TABLET PO SCH (08:17)
[2018-08-06] MEDS: Apixaban 5 MG TABLET PO SCH ×2 (08:17→21:12)
[2018-08-06] MEDS: Nitrofurantoin (BID) 100 MG CAPSULE PO SCH ×2 (08:17→17:15)
--- NOTE | 2018-08-06 08:47 | Internal Med Progress Note ---
<Chantelle George - Last Filed: 08/06/18 14:48> Hospitalist Progress Note - Encounter Date of Encounter: 08/06/18 - Exam Vitals: Temp Pulse Resp BP Pulse Ox 98.0 F 66 16 142/59 97 08/06/18 07:25 08/06/18 11:41 08/06/18 11:41 08/06/18 11:41 08/06/18 11:41 - Assessment and Plan (1) BRET (acute kidney injury) Current Visit: Yes Status: Resolved (2) CAD (coronary artery disease) Current Visit: Yes Status: Chronic (3) Peripheral vascular disease Current Visit: Yes Status: Chronic (4) Diabetes mellitus, type 2 Current Visit: Yes Status: Chronic (5) Toe ulcer due to DM Current Visit: Yes Status: Acute (6) Osteomyelitis Current Visit: Yes Status: Acute (7) Asymptomatic bacteriuria Current Visit: Yes Status: Acute (8) Leukocytosis Current Visit: Yes Status: Resolved - Time Spent with Patient Total time spent is greater than 50% in coordination of care (as documented) at patient's floor/unit and/or counseling patient: Internal Medicine: Result - Labs CBC & Chem 7: 08/06/18 03:58 08/06/18 03:58 Labs: Short CBC 08/05/18 08/06/18 Range/Units 16:00 03:58 WBC 18.8 H 15.5 H (4.3-11.1) K/mcL Hgb 9.3 L 8.9 L (11.5-15.4) g/dL Hct 29.0 L 28.5 L (35.3-44.9) % Plt Count 246 253 (140-400) K/mcL Neutrophils # 15.1 H 11.9 H (1.6-8.9) K/mcL BMP 08/06/18 03:58 Sodium 133 L Potassium 4.5 Chloride 109 H Carbon Dioxide 18 L BUN 37 H Creatinine 1.14 Glucose 153 H Calcium 8.4 L - ABG Interpretation ABG results: ABG ABG pH 7.38 pH Units (7.32-7.45) 08/04/18 16:49 ABG pCO2 42 mmHg (35-45) 08/04/18 16:49 ABG pO2 74 mmHg (85-104) L 08/04/18 16:49 ABG O2 Saturation 94 % (95-98) L 08/04/18 16:49 PT/INR, D-dimer PT 20.9 Seconds (9.4-12.1) H 07/29/18 05:14 Consult Discharge Plan - Plan Referrals: Monisha Madison CNP [Advanced Practice Nurse] - 08/26/18 1:45 pm Lito Kyle DPM [Partnered Physician] - NONE,PCP [Primary Care Provider] - (Patient is from [facility] no PCP appointment is needed) Maykel Crandall MD [Partnered Physician] - 08/23/18 9:00 am (This appointment is in [place]) - Attending Attestation I examined this patient and my medical decision-making was reviewed with the Resident Physician. I agree with the documented findings, disposition and treatment plan as described except to the extent set forth below. Doing better today, AAO x3, does not appear confused at all. Denies fevers/chills, n/v, lower extremity edema, chest pain, SOB. Physical exam shows patient AAO x3, appropriate affect. Lungs clear, CVS: RRR, left extremity BKA, right foot unchanged right foot in boot with dressing. For toe ulcer with sepsis, continue IV vancomycin. PICC line placement, plan for 6 week treat ment with Vancomycin. <Gorge Marino - Last Filed: 08/06/18 17:23> Hospitalist Progress Note - Encounter Date of Encounter: 08/06/18 Time of Encounter: 08:30 - Subjective Interval History: Ms. Armenta is a 68F with PMH of DM2, PVD, and CAD. She was admitted on 07/29/18 for a right 2nd toe diabetic ulcer with osteomyelitis. POD#3 from a right iliofemoral endarterectomy with Dr. Crandall. Pt seen and examined at bedside. Pt states she feels better today. She is oriented to person, place, time, and most events. She continues to complain of right-sided heel pain. Also states her balderas catheter is bothering her. She continues to deny any subjective fever or chills. Denies chest pain, shortness of breath, abdominal pain, nausea, vomiting, headaches, or dizziness. - Exam Vitals: Temp Pulse Resp BP Pulse Ox 98.0 F 63 16 143/67 97 08/06/18 07:25 08/06/18 07:25 08/06/18 07:25 08/06/18 07:25 08/06/18 07:25 Exam: General: obese female with minimal respiratory distress Head: normocephalic and atraumatic Eyes: PERRL, EOMI, sclera anicteric, conjunctiva pink Neck: supple, trachea midline Lungs: grossly diminished breath sounds with some fine wheezes in the apices bilaterally. no rales or rhonchi. Minimally labored breathing on 2lpm O2 Heart: RRR +S1 +S2 no murmurs, clicks, or rubs appreciated GI: abdomen soft, non-tender, non-distended. normoactive bowel sounds : balderas catheter in place. no obvious trauma Extremities: warm, dressings in place on right heel and right calf with air boot in place. AKA on the left. Radial pulses palpable and symmetrical. no cyanosis. +2 pitting edema of the R leg, difficult to assess edema of L leg. Neuro: A&Ox3. cooperative with exam. no focal deficits. no speech difficulty or abnormality Skin: warm, dry, intact. blanching erythema on sacral region - Assessment and Plan (1) Altered mental status, unspecified Current Visit: Yes Status: Resolved Assessment and Plan: - Patient now A&Ox3 today, significantly improved from the past couple days - POD#3 from right iliofemoral endarterectomy - 08/04/18: In the morning patient was oriented to person and place, was difficult to arose and lethargic; In the afternoon patient was oriented to name only, she was unable to state her , where she was, why she was here, what month or year it was, and who the president was. She would repeat her name for each question asked. She had moments of lucid behavior lasting ~10 seconds, where she would answer a question before returning to an un-oriented state where she would repeat her name. Patient failed to make eye contact during conversation with patient - 08/04/18: Stat ABG, BMP, lactic acid, head CT and ammonia levels were normal - Mental status exams performed throughout the night of 08/04 showed continued confusion - ID consulted for leukocytosis - CXR negative - Respiratory infectious panel negative - Blood cultures pending Plan: mental status significantly improved but continue to monitor mental status closely. Continue vanc and cefepime. (2) Anemia Current Visit: Yes Status: Acute Assessment and Plan: Hgb has been trending down since 08/04 Down to 8.9 today No obvious signs of bleeding at this time Pt is on Eliquis, but continue at this time since pt is high risk with CAD and sedentary status Will check stool occult BID protonix for stress ulcer prophylaxis (3) Toe ulcer due to DM Current Visit: Yes Status: Acute Assessment and Plan: Ulcer on right 2nd toe Has poorly controlled DM2 as evidenced by A1c of 8.9 Culture positive for Enterococcus and MRSA sensitive to vanc and cefepime ID on board Podiatry on board Continue vanc and cefepime Podiatry managing wound care (4) Osteomyelitis Current Visit: Yes Status: Acute Assessment and Plan: Denies pain of right toes despite obvious right 2nd toe wound Continues to complain of right heel pain On day #9 Vanc and Cefepime Has severe right leg ischemia - see below assessment for further details Went to OR with Dr Crandall on 08/03 for a right iliofemoral artery endarterectomy ID is on board, appreciate recs Continue vanc and cefepime Continue to monitor leukocytosis and mental status Clean and dry dressings to wounds and surgical sites ID is consulted, appreciate recs (5) BRET (acute kidney injury) Current Visit: Yes Status: Resolved Assessment and Plan: As seen with post-op labs Cr improved to 1.14 today eGFR improved at 48 today Continue to monitor closely since pt requires vancomycin and cefepime for osteo Continue to hold home Lasix (6) Asymptomatic bacteriuria Current Visit: Yes Status: Acute Assessment and Plan: Asymptomatic with no abdominal or suprapubic pain Urine culture grew E. coli sensitive to cefepime Leukocytosis improving at 15.5 today, down from 18.8 yesterday Continue Cefepime with right leg osteo (7) Peripheral vascular disease Current Visit: Yes Status: Chronic Assessment and Plan: - Hx of Left BKA - CODY from 07/29 was 0 with no ankle pulses - CTA aorta with runnoff from 08/01 revealed "Extensive right lower extremity atherosclerotic disease with right common femoral artery occlusion extending to the distal superficial femoral artery where there is reconstitution of the distal femoral artery related to the patent profunda femoral artery and muscular branches. Triple-vessel runoff to the level of the foot with distal lower leg posterior tibialis occlusion and reconstitution" - Underwent right iliofemoral endarterectomy with Dr. Crandall on 08/03/18 Plan: vascular surgery continues to follow. Continue vancomycin and cefepime for osteo of right leg. clean and dry dressings to wounds and surgical sites. (8) Diabetes mellitus, type 2 Current Visit: Yes Status: Chronic Assessment and Plan: Insulin dependent DM2 Hgb A1c during this admission was 8.9 - poorly controlled Continue ACHS accuchecks Continue Medium dose SSI Continue 10u Levemir daily (9) Pressure injury of deep tissue of right heel Current Visit: Yes Status: Acute Assessment and Plan: Small ecchymosis noted on 08/02 and pt was instructed to wear air boot Podiatry continuing to follow non-blanching dark erythema stable - measuring approximately 2.5cm x 1.5cm Continue air boot for heel off-loading Continue to monitor Appreciate podiatry recs (10) CAD (coronary artery disease) Current Visit: Yes Status: Chronic Assessment and Plan: CAD diagnosed in 2014 Home meds of lasix, amlodipine, apixaban, atorvastatin, metoprolol xl, and spironolactone Had 4 stents placed in 2014 Continues to deny SOB or chest pain Patient placed on eliquis due to a - flutter in history On telemetry Plan: Post op day 3 for vasc. surg. being followed by Dr. Nicole; Monitor BP and cardiac symptoms, continue home meds except lasix (11) Liver lesion, left lobe Current Visit: Yes Status: Acute Assessment and Plan: As seen on the CTA - ill-defined hypodense areas without expansion at the anterior and posterior aspects of the lateral segment Recommend follow up outpatient MRI and follow up with PCP (12) Severe obesity Current Visit: Yes Status: Chronic Assessment and Plan: BMI of 48.2 Chronic issue (13) DVT prophylaxis Current Visit: Yes Status: Acute Assessment and Plan: On Eliquis - Time Spent with Patient Total time spent is greater than 50% in coordination of care (as documented) at patient's floor/unit and/or counseling patient: Internal Medicine: Result - Labs CBC & Chem 7: 08/06/18 03:58 08/06/18 03:58 Labs: Short CBC 08/05/18 08/05/18 08/06/18 Range/Units 09:21 16:00 03:58 WBC 19.7 H 18.8 H 15.5 H (4.3-11.1) K/mcL Hgb 9.3 L 9.3 L 8.9 L (11.5-15.4) g/dL Hct 29.8 L 29.0 L 28.5 L (35.3-44.9) % Plt Count 278 246 253 (140-400) K/mcL Neutrophils # 16.4 H 15.1 H 11.9 H (1.6-8.9) K/mcL BMP 08/06/18 03:58 Sodium 133 L Potassium 4.5 Chloride 109 H Carbon Dioxide 18 L BUN 37 H Creatinine 1.14 Glucose 153 H Calcium 8.4 L - ABG Interpretation ABG results: ABG ABG pH 7.38 pH Units (7.32-7.45) 08/04/18 16:49 ABG pCO2 42 mmHg (35-45) 08/04/18 16:49 ABG pO2 74 mmHg (85-104) L 08/04/18 16:49 ABG O2 Saturation 94 % (95-98) L 08/04/18 16:49 PT/INR, D-dimer PT 20.9 Seconds (9.4-12.1) H 07/29/18 05:14 - Impressions Impressions Chest X-Ray 08/05/18 07:45 IMPRESSION: Stable chest with no new acute cardiopulmonary findings. D/ / Latosha Gonzalez MD / Latosha Gonzalez MD Interpreting Provider: Latosha Gonzalez MD <Chantelle George - Last Filed: 08/06/18 14:48> (2) CAD (coronary artery disease) Qualifiers: Coronary Disease-Associated Artery/Lesion type: [place] artery [place] vs. transplanted heart: [place] heart Associated angina: without angina Qualified Code(s): I25.10 - Atherosclerotic heart disease of [place] coronary artery witho ut angina pectoris (4) Diabetes mellitus, type 2 Qualifiers: Diabetes mellitus retirement insulin use: with retirement use Diabetes mellitus complication status: with circulatory complication Diabetes mellitus complication detail: with other circulatory complications Qualified Code(s): E11.59 - Type 2 diabetes mellitus with other circulatory complications; Z79.4 - intermediate (current) use of insulin (5) Toe ulcer due to DM Qualifiers: Diabetes mellitus type: type 2 Laterality: right Non-pressure ulcer stage: unspecified non-pressure ulcer stage Qualified Code(s): E11.621 - Type 2 diabetes mellitus with foot ulcer; L97.519 - Non-pressure chronic ulcer of other part of right foot with unspecified severity (6) Osteomyelitis Qualifiers: Osteomyelitis type: unspecified type Osteomyelitis location: foot Later ality: right Qualified Code(s): M86.9 - Osteomyelitis, unspecified (8) Leukocytosis Qualifiers: Leukocytosis type: unspecified Qualified Code(s): D72.829 - Elevated white blood cell count, unspecified <Gorge Marino - Last Filed: 08/06/18 17:23> (1) Altered mental status, unspecified Qualifiers: Altered mental status type: unspecified Qualified Code(s): R41.82 - Altered mental status, unspecified (2) Anemia Qualifiers: Anemia type: unspecified type Qualified Code(s): D64.9 - Anemia, unspecified (3) Toe ulcer due to DM Qualifiers: Diabetes mellitus type: type 2 Laterality: right Non-pressure ulcer stage: unspecified non-pressure ulcer stage Qualified Code(s): E11.621 - Type 2 diabetes mellitus with foot ulcer; L97.519 - Non-pressure chronic ulcer of other part of right foot with unspecified severity (4) Osteomyelitis Qualifiers: Osteomyelitis type: unspecified type Osteomyelitis location: foot Laterality: right Qualified Code(s): M86.9 - Osteomyelitis, unspecified (8) Diabetes mellitus, type 2 Qualifiers: 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 transplanted heart: [place] heart Associated angina: without angina Qualified Code(s): I25.10 - Atherosclerotic heart disease of [place] coronary artery without angina pectoris
[2018-08-06] MEDS: Insulin LISPRO 300 UNITS/3 ML VIAL SQ SCH ×4 (09:50→21:13)
--- NOTE | 2018-08-06 10:36 | Infectious Disease Progress No ---
Date of Encounter: 08/06/18 Time of Encounter: 10:34 - Assessment and Plan (1) Sepsis Current Visit: No Status: Acute The patient had leukocytosis and tachypnea on admission with BRET and AMS. Likely secondary to osteomyelitis and UTI. Improved. WBC improved today. Tachycardia and tachypnea have resolved. Blood cultures drawn 07/29/18 were negative x 2 sets. Repeat blood cultures drawn 08/05/18 are pending x 2 sets. Recommendations: Await repeat blood cultures. Wound care per the Podiatry team. Continue Vancomycin IV. Pharmacy to dose. Goal trough ~15. Continue nitrofurantoin 100mg PO BID. (day 9 of treatment) Duration of treatment depends on the clinical picture. Will likely need 6 weeks of IV vancomycin for her osteomyelitis. Can discontinue nitrofurantoin after 10 days of treatment. Monitor renal function and for drug toxicity and dose-adjust antibiotics. Consults vascular access team for PICC line placement prior to discharge. We will need weekly CBC, BOM/creatinine, ESR, CRP, and vancomycin trough. Will need weekly PICC line care per protocol. Follow-up with ID 08/26/18 at 1345. Qualifiers: Sepsis type: sepsis due to unspecified organism Qualified Code(s): A41.9 - Sepsis, unspecified organism (2) Osteomyelitis Current Visit: Yes Status: Acute Location: Right foot distal 2nd toe. Causative organism: MRSA and E. faecalis. Secondary to chronic non-healing DFU. Podiatry consulted and following. No surgery planned at this point. Currently on Vancomycin. Qualifiers: Osteomyelitis type: unspecified type Osteomyelitis location: foot Laterality: right Qualified Code(s): M86.9 - Osteomyelitis, unspecified (3) UTI (urinary tract infection) Current Visit: Yes Status: Acute Causative organism: E. coli. UTI vs. asymptomatic bacteriurua. Currently on nitrofurantoin (day 9 of treatment). Qualifiers: Urinary tract infection type: site unspecified Hematuria presence: without hematuria Qualified Code(s): N39.0 - Urinary tract infection, site not specified (4) BRET (acute kidney injury) Current Visit: Yes Status: Resolved Likely secondary to sepsis. Resolved. (5) Peripheral vascular disease Current Visit: Yes Status: Chronic Status post right iliofemoral endarterectomy 08/03/[address] Nicole. Right foot TCPO2 monitoring consistent with healing, but right ankle and calf not consistent with healing. (6) Toe ulcer due to DM Current Visit: Yes Status: Acute Qualifiers: Diabetes mellitus type: type 2 Laterality: right Non-pressure ulcer stage: unspecified non-pressure ulcer stage Qualified Code(s): E11.621 - Type 2 diabetes mellitus with foot ulcer; L97.519 - Non-pressure chronic ulcer of other part of right foot with unspecified severity (7) S/P amputation of limb Current Visit: Yes Status: Chronic (8) Atrial fibrillation Current Visit: Yes Status: Chronic Qualifiers: Atrial fibrillation type: persistent Qualified Code(s): I48.1 - Persistent atrial fibrillation (9) Insulin dependent diabetes mellitus Current Visit: Yes Status: Chronic Strict glucose control. - Subjective Interval history: Patient seen and examined. No acute events noted overnight. Patient resting quietly in bed. Complains of pain to the right foot and ankle. Denies fevers or chills or rigors. Denies chest pain, shortness of breath, or cough. Denies nausea, vomiting, diarrhea. Reports BM last night after laxative. She denies abdominal pain or urinary complaints. She would like to have the balderas removed. She denies any oral thrush or new skin lesions. Infect Dis PN-Objective Data - Labs CBC & Chem 7: 08/06/18 03:58 08/06/18 03:58 Labs: Laboratory Results - last 24 hr 08/04/18 08/05/18 08/05/18 16:18 09:21 11:02 WBC 19.7 H RBC 3.00 L Hgb 9.3 L Hct 29.8 L MCV 99.3 MCH 31.0 MCHC 31.2 L RDW 16.0 H Plt Count 278 MPV 12.1 Immature Gran % 1.7 Seg Neutrophils % 83.1 Lymphocytes % 3.9 Monocytes % 10.2 Eosinophils % 0.6 Basophils % 0.5 Neutrophils # 16.4 H Lymphocytes # 0.8 Monocytes # 2.0 H Eosinophils # 0.1 Basophils # 0.1 Nucleated RBCs/100 WBC Sodium Potassium Chloride Carbon Dioxide BUN Creatinine Est GFR ( Amer) Est GFR (Non-Af Amer) BUN/Creatinine Ratio Glucose POC Glucose 193 H 193 H Calculated Osmolality Calcium Random Vancomycin Chlamy pneumoniae PCR Adenovirus (PCR) B. pertussis DNA (PCR) B.parapertussis DNA PCR Coronavirus OC43 (PCR) Coronavirus HKU1 (PCR) Coronavirus 229E (PCR) Coronavirus NL63 (PCR) Human Metapneumovir PCR Influenza A (H1) PCR Influ A (H1N1/09) PCR Influenza A (H3) PCR Influenza A Untype (PCR) Influenza Type B (PCR) M.pneumoniae DNA (PCR) Parainfluenza 1 (PCR) Parainfluenza 2 (PCR) Parainfluenza 3 (PCR) Parainfluenza 4 (PCR) RSV (PCR) Entero/Rhino (PCR) 08/05/18 08/05/18 08/05/18 11:30 16:00 17:29 WBC 18.8 H RBC 2.93 L Hgb 9.3 L Hct 29.0 L MCV 99.0 MCH 31.7 MCHC 32.1 RDW 15.9 H Plt Count 246 MPV 11.4 Immature Gran % 2.1 Seg Neutrophils % 80.6 Lymphocytes % 4.7 Monocytes % 11.0 Eosinophils % 1.2 Basophils % 0.4 Neutrophils # 15.1 H Lymphocytes # 0.9 Monocytes # 2.1 H Eosinophils # 0.2 Basophils # 0.1 Nucleated RBCs/100 WBC Sodium Potassium Chloride Carbon Dioxide BUN Creatinine Est GFR ( Amer) Est GFR (Non-Af Amer) BUN/Creatinine Ratio Glucose POC Glucose 204 H Calculated Osmolality Calcium Random Vancomycin Chlamy pneumoniae PCR Not Detected Adenovirus (PCR) Not Detected B. pertussis DNA (PCR) Not Detected B.parapertussis DNA PCR Not Detected Coronavirus OC43 (PCR) Not Detected Coronavirus HKU1 (PCR) Not Detected Coronavirus 229E (PCR) Not Detected Coronavirus NL63 (PCR) Not Detected Human Metapneumovir PCR Not Detected Influenza A (H1) PCR Not Detected Influ A (H1N1/09) PCR Not Detected Influenza A (H3) PCR Not Detected Influenza A Untype (PCR) Not Detected Influenza Type B (PCR) Not Detected M.pneumoniae DNA (PCR) Not Detected Parainfluenza 1 (PCR) Not Detected Parainfluenza 2 (PCR) Not Detected Parainfluenza 3 (PCR) Not Detected Parainfluenza 4 (PCR) Not Detected RSV (PCR) Not Detected Entero/Rhino (PCR) Not Detected 08/05/18 08/06/18 08/06/18 20:36 03:58 03:58 WBC 15.5 H RBC 2.86 L Hgb 8.9 L Hct 28.5 L MCV 99.7 MCH 31.1 MCHC 31.2 L RDW 16.0 H Plt Count 253 MPV 11.6 Immature Gran % 3.5 Seg Neutrophils % 76.2 Lymphocytes % 5.7 Monocytes % 11.5 Eosinophils % 2.3 Basophils % 0.8 Neutrophils # 11.9 H Lymphocytes # 0.9 Monocytes # 1.8 H Eosinophils # 0.4 Basophils # 0.1 Nucleated RBCs/100 WBC 0.1 H Sodium Potassium Chloride Carbon Dioxide BUN Creatinine Est GFR ( Amer) Est GFR (Non-Af Amer) BUN/Creatinine Ratio Glucose POC Glucose 237 H Calculated Osmolality Calcium Random Vancomycin 15 Chlamy pneumoniae PCR Adenovirus (PCR) B. pertussis DNA (PCR) B.parapertussis DNA PCR Coronavirus OC43 (PCR) Coronavirus HKU1 (PCR) Coronavirus 229E (PCR) Coronavirus NL63 (PCR) Human Metapneumovir PCR Influenza A (H1) PCR Influ A (H1N1/09) PCR Influenza A (H3) PCR Influenza A Untype (PCR) Influenza Type B (PCR) M.pneumoniae DNA (PCR) Parainfluenza 1 (PCR) Parainfluenza 2 (PCR) Parainfluenza 3 (PCR) Parainfluenza 4 (PCR) RSV (PCR) Entero/Rhino (PCR) 08/06/18 03:58 WBC RBC Hgb Hct MCV MCH MCHC RDW Plt Count MPV Immature Gran % Seg Neutrophils % Lymphocytes % Monocytes % Eosinophils % Basophils % Neutrophils # Lymphocytes # Monocytes # Eosinophils # Basophils # Nucleated RBCs/100 WBC Sodium 133 L Potassium 4.5 Chloride 109 H Carbon Dioxide 18 L BUN 37 H Creatinine 1.14 Est GFR ( Amer) 58 L Est GFR (Non-Af Amer) 48 L BUN/Creatinine Ratio 32 H Glucose 153 H POC Glucose Calculated Osmolality 288 Calcium 8.4 L Random Vancomycin Chlamy pneumoniae PCR Adenovirus (PCR) B. pertussis DNA (PCR) B.parapertussis DNA PCR Coronavirus OC43 (PCR) Coronavirus HKU1 (PCR) Coronavirus 229E (PCR) Coronavirus NL63 (PCR) Human Metapneumovir PCR Influenza A (H1) PCR Influ A (H1N1/09) PCR Influenza A (H3) PCR Influenza A Untype (PCR) Influenza Type B (PCR) M.pneumoniae DNA (PCR) Parainfluenza 1 (PCR) Parainfluenza 2 (PCR) Parainfluenza 3 (PCR) Parainfluenza 4 (PCR) RSV (PCR) Entero/Rhino (PCR) Cultures: Cultures 08/05/18 09:21 Blood Culture - Preliminary Peripheral Venipuncture Culture is incubating and being continuously monitored for growth. Final report to follow. 08/05/18 08:52 Blood Culture - Preliminary Peripheral Venipuncture Culture is incubating and being continuously monitored for growth. Final report to follow. 07/29/18 05:14 Blood Culture - Final Peripheral Venipuncture No growth. Final report. 07/29/18 05:03 Blood Culture - Final Peripheral Venipuncture No growth. Final report. 07/29/18 05:35 Wound Culture - Final Second Right Toe Enterococcus faecalis Methicillin Resistant S.aureus 07/29/18 14:37 Urine Culture - Final Urine,Clean Catch Escherichia coli Serology 08/05/18 07/29/18 Range/Units 11:30 14:37 Urine Color Yellow (Yellow) Urine Clarity Cloudy A (Clear) Urine pH 5.5 (5.0-8.0) pH Units Ur Specific [place] 1.017 (1.010-1.025) Urine Protein Negative (Neg-Trace) mg/dL Urine Glucose (UA) Normal (Normal) mg/dL Urine Ketones Negative (Negative) mg/dL Urine Blood Small H (Negative) Urine Nitrite Positive A (Negative) Urine Bilirubin Negative (Negative) Urine Urobilinogen Normal (Normal) mg/dL Ur Leukocyte Esterase Large H (Negative) Urine Microscopic RBC 0-3 (0-3) per hpf Urine Microscopic WBC TNTC H (0-3) per hpf Ur Squamous Epith Cells Many H (None-Few) per lpf Urine Bacteria Many H (None-Few) per hpf Hyaline Casts None Seen (None-Few) per lpf Chlamy pneumoniae PCR Not Detected (Not Detect) Adenovirus (PCR) Not Detected (Not Detect) B. pertussis DNA (PCR) Not Detected (Not Detect) B.parapertussis DNA PCR Not Detected (Not Detect) Coronavirus OC43 (PCR) Not Detected (Not Detect) Coronavirus HKU1 (PCR) Not Detected (Not Detect) Coronavirus 229E (PCR) Not Detected (Not Detect) Coronavirus NL63 (PCR) Not Detected (Not Detect) Human Metapneumovir PCR Not Detected (Not Detect) Influenza A (H1) PCR Not Detected (Not Detect) Influ A (H1N1/09) PCR Not Detected (Not Detect) Influenza A (H3) PCR Not Detected (Not Detect) Influenza A Untype (PCR) Not Detected (Not Detect) Influenza Type B (PCR) Not Detected (Not Detect) M.pneumoniae DNA (PCR) Not Detected (Not Detect) Parainfluenza 1 (PCR) Not Detected (Not Detect) Parainfluenza 2 (PCR) Not Detected (Not Detect) Parainfluenza 3 (PCR) Not Detected (Not Detect) Parainfluenza 4 (PCR) Not Detected (Not Detect) RSV (PCR) Not Detected (Not Detect) Entero/Rhino (PCR) Not Detected (Not Detect) - Impressions Impressions Chest X-Ray 08/05/18 07:45 IMPRESSION: Stable chest with no new acute cardiopulmonary findings. D/ / Latosha Gonzalez MD / Latosha Gonzalez MD Interpreting Provider: Latosha Gonzalez MD Exam - Constitutional Vitals: Temp Pulse Resp BP Pulse Ox 98.0 F 63 16 143/67 97 08/06/18 07:25 08/06/18 07:25 08/06/18 07:25 08/06/18 07:25 08/06/18 07:25 General appearance: cooperative, no acute distress, obese - Head Head exam: Present: atraumatic, normal inspection, normocephalic - Eye Eye exam: Present: EOMI, normal appearance, PERRL Pupils: Present: normal accommodation - ENT ENT exam: Present: mucous membranes moist - Neck Neck exam: Present: normal inspection - Respiratory Respiratory exam: Present: CTAB. Absent: rales, respiratory distress, rhonchi, wheezes - Cardiovascular Cardiovascular exam: Present: RRR, +S1, +S2 - GI/Abdominal GI/Abdominal exam: Present: distended (obese), normal bowel sounds, soft. Absent: tenderness Additional comments: Balderas catheter noted be draining clear yellow urine. - Extremities Exam Extremities exam: Absent: normal inspection (Left AKA stump is well-healed without erythema, warmth, open lesion, or drainage.) Additional comments: Right foot dressing is clean, dry, and intact. - Neurological Exam Neurological exam: Present: alert, oriented X3, no focal deficits - Psychiatric Psychiatric exam: Present: normal affect, normal mood - Skin Skin exam: Present: dry, intact, normal color, warm Consult Discharge Plan - Plan Referrals: NONE,PCP [Primary Care Provider] - (Patient is from [facility] no PCP appointment is needed) Maykel Crandall MD [Partnered Physician] - 08/23/18 9:00 am (This appointment is in [place]) Monisha Madison CNP [Advanced Practice Nurse] - 08/26/18 1:45 pm - Attending Attestation I examined this patient and my medical decision-making was reviewed with the Resident Physician. I agree with the documented findings, disposition and tr eatment plan as described except to the extent set forth below.
[2018-08-06] MEDS ORDERED: Lidocaine -MPF 1% 5 ML AMPUL INFILT ONE (12:34)
[2018-08-06] MEDS: 0.9 % Sodium Chloride 1,000 ML IVC SCH ×2 (13:00→21:30)
--- NOTE | 2018-08-06 14:35 | Podiatry Progress Note ---
Date of Encounter: 08/06/18 Time of Encounter: 12:15 - Assessment and Plan (1) Toe ulcer due to DM Current Visit: Yes Status: Acute Assessment: Right foot digit #2 with necrotic ulcer to the medial aspect. Ischemia noted to distal aspect of digit toe #2 Maceration noted to toe #2 S/P right iliofemoral endarterectomy on 06/03/[address] Crandall. Erythema noted to digit #2 extending to forefoot, slight improvement since yesterday Reports pain to right calcaneous Doppler DP/PT pulses, weak Agree with IV antibiotics Foot xray 07/29 suspicious for OM. 07/29 ESR >130 WBC decreasing 15.5 today TCPO2 right below 11, mid calf 9, ankle 11, and foot 25- consistent with healing of foot, abnormal below knee to ankle. No fevers overnight ID managing ATB Plan: Pain managment per primary team Discussed with Dr. Kyle surgical vs conservative management at this time, will continue with conservative management at this time Continue with pharmacological debridement, Santyl, nickel thick application, 2x daily. Continue twice daily local wound care. Follow up in office with Dr. Kyle. Please make appointment prior to d/c. Qualifiers: Diabetes mellitus type: type 2 Laterality: right Non-pressure ulcer stage: unspecified non-pressure ulcer stage Qualified Code(s): E11.621 - Type 2 diabetes mellitus with foot ulcer; L97.519 - Non-pressure chronic ulcer of other part of right foot with unspecified severity (2) Pressure injury of deep tissue of heel Current Visit: Yes Status: Acute Assessment: DTI of right calcaneous Plan: Elevate extremity. Allevyn foam dressing to right calcaneous Heel medix boot in place, keep foot elevated at all times when in bed to promote offloading of calcaneous Subjective Principal diagnosis: Right second toe wound Interval history: Patient awake in bed. Drowsy. Oriented to person only. S/P day 1 revascularization to right iliofemoral endarterectomy. Objective - Vital Signs Vital Signs: Vital Signs Temp Pulse Resp BP Pulse Ox 08/06/18 11:41 66 16 142/59 97 08/06/18 07:25 98.0 F 63 16 143/67 97 08/06/18 03:30 98.2 F 63 16 135/65 96 08/06/18 00:24 96 08/05/18 23:25 98.4 F 60 18 143/61 96 08/05/18 20:38 98.7 F 63 20 127/69 97 08/05/18 20:30 61 08/05/18 17:18 98 F 68 18 129/60 91 Intake and Output 08/05/18 08/06/18 08/06/18 23:59 07:59 15:59 Intake Total 1000 / 1000 240 / 240 Output Total 275 / 275 Balance 725 / 725 240 / 240 Intake: IV Fluids 1000 / 1000 0.9 % Sodium Chloride 1,000 ML 1000 / 1000 @ 100 mls/hr IVC .Q10H PETER Rx#: [id number] Oral 240 / 240 Output: Catheter 275 / 275 Other: Meal Breakfast Percent of Meal Consumed 85% Blood Glucose* 237 167 190 - Lab Result Diagrams: 08/06/18 03:58 08/06/18 03:58 Labs: Abnormal lab results WBC 15.5 K/mcL (4.3-11.1) H 08/06/18 03:58 RBC 2.86 M/mcL (3.82-4.97) L 08/06/18 03:58 Hgb 8.9 g/dL (11.5-15.4) L 08/06/18 03:58 Hct 28.5 % (35.3-44.9) L 08/06/18 03:58 MCHC 31.2 g/dL (31.6-35.5) L 08/06/18 03:58 RDW 16.0 % (11.5-14.5) H 08/06/18 03:58 Neutrophils # 11.9 K/mcL (1.6-8.9) H 08/06/18 03:58 Monocytes # 1.8 K/mcL (0.0-1.3) H 08/06/18 03:58 Nucleated RBCs/100 WBC 0.1 /100 WBC (0) H 08/06/18 03:58 ESR >= 130 mm/hr (0-15) H 07/30/18 04:24 PT 20.9 Seconds (9.4-12.1) H 07/29/18 05:14 APTT 40.6 Seconds (26.0-36.0) H 07/29/18 05:14 ABG pO2 74 mmHg (85-104) L 08/04/18 16:49 ABG O2 Saturation 94 % (95-98) L 08/04/18 16:49 Sodium 133 mEq/L (136-145) L 08/06/18 03:58 Chloride 109 mEq/L (98-107) H 08/06/18 03:58 Carbon Dioxide 18 mEq/L (23-29) L 08/06/18 03:58 BUN 37 mg/dL (8-23) H 08/06/18 03:58 Est GFR ( Amer) 58 (> 60) L 08/06/18 03:58 Est GFR (Non-Af Amer) 48 (> 60) L 08/06/18 03:58 BUN/Creatinine Ratio 32 (6-26) H 08/06/18 03:58 Glucose 153 mg/dL (70-105) H 08/06/18 03:58 POC Glucose 237 mg/dL (70-99) H 08/05/18 20:36 Hemoglobin A1c 8.9 % (-5.6) H 07/29/18 05:03 Calcium 8.4 mg/dL (8.6-10.3) L 08/06/18 03:58 AST 11 Units/L (13-39) L 08/04/18 17:15 Serum Total Protein 6.2 g/dL (6.4-8.9) L 08/04/18 17:15 Albumin 2.9 g/dL (3.5-5.7) L 08/04/18 17:15 Albumin/Globulin Ratio 0.9 (1.1-2.2) L 08/04/18 17:15 Urine Clarity Cloudy (Clear) A 07/29/18 14:37 Urine Blood Small (Negative) H 07/29/18 14:37 Urine Nitrite Positive (Negative) A 07/29/18 14:37 Ur Leukocyte Esterase Large (Negative) H 07/29/18 14:37 Urine Microscopic WBC TNTC per hpf (0-3) H 07/29/18 14:37 Ur Squamous Epith Cells Many per lpf (None-Few) H 07/29/18 14:37 Urine Bacteria Many per hpf (None-Few) H 07/29/18 14:37 Vancomycin Trough 16 mcg/mL (5-10) H 08/05/18 03:56 Microbiology, Last 48 Hours 08/05/18 09:21 Blood Culture - Preliminary Peripheral Venipuncture Culture is incubating and being continuously monitored for growth. Final report to follow. 08/05/18 08:52 Blood Culture - Preliminary Peripheral Venipuncture Culture is incubating and being continuously monit ored for growth. Final report to follow. Consult Discharge Plan - Plan Referrals: Monisha Madison CNP [Advanced Practice Nurse] - 08/26/18 1:45 pm NONE,PCP [Primary Care Provider] - (Patient is from [facility] no PCP appointment is needed) Maykel Crandall MD [Partnered Physician] - 08/23/18 9:00 am (This appointment is in [place]) Lito Kyle DPM [Partnered Physician] -
[2018-08-06] MEDS: Pantoprazole 40 MG VIAL IVP SCH (17:15)
--- NOTE | 2018-08-06 18:14 | Vascular/[facility] Progress Note ---
Date of Encounter: 08/06/18 Time of Encounter: 12:30 - Assessment and plan (1) Peripheral vascular disease Current Visit: Yes Status: Chronic The patient is postoperative day # 3 after right lower extremity endarterectomy. Her wound is healing well. The patient follow up with Dr. Crandall after discharge. We will sign off from the patient. Reconsult if necessary. - Subjective Interval history: The patient is alert and comfortable today. She denies chest pain or shortness of breath. Vital Signs, Last 4 Hours Temp Pulse Resp BP Pulse Ox 08/06/18 17:01 98.5 F 73 16 119/51 97 - Physical Examination General: Present: Conversant Cardiac: Present: Reg Rate and Rhythm Lungs: Present: Normal Breath Sounds Vascular: Present: Surgical incisions (The right groin incision is clean, dry and intact without erythema or drainage.) Results 08/06/18 03:58 08/06/18 03:58 Lab Results, Last 24 hours 08/06/18 08/06/18 03:58 03:58 WBC 15.5 H Hgb 8.9 L Hct 28.5 L Plt Count 253 Sodium 133 L Potassium 4.5 Chloride 109 H Carbon Dioxide 18 L BUN 37 H Creatinine 1.14 Glucose 153 H Calcium 8.4 L Consult Discharge Plan - Plan Referrals: Monisha Madison CNP [Advanced Practice Nurse] - 08/26/18 1:45 pm Lito Kyle DPM [Partnered Physician] - NONE,PCP [Primary Care Provider] - (Patient is from [facility] no PCP appointment is needed) Maykel Crandall MD [Partnered Physician] - 08/23/18 9:00 am (This appointment is in [place])
[2018-08-06] MEDS: Insulin DETEMIR 100 UNIT/ML X5UNITS SQ SCH (21:13)
[2018-08-07] MEDS: *HR* HYDROcodone/Acet 5/325 mg TABLET PO PRN ×2 (00:14→15:44)
[2018-08-07] MEDS ORDERED: Furosemide 40 MG/4 ML VIAL IVP ONE (04:15)
[2018-08-07] MEDS ORDERED: Furosemide 40 MG/4 ML VIAL ONE (04:16)
[2018-08-07 04:34] LABS: Basophils # 0.2 K/mcL (0.0-0.2); Basophils % 1.2 %; Eosinophils # 0.5 K/mcL (0.0-0.6); Eosinophils % 3.1 %; Hemoglobin 9.4 g/dL (11.5-15.4); Immature Granulocytes % 5.2 % (0-4); Lymphocytes # 1.3 K/mcL (0.6-4.6); Lymphocytes % 8.2 %; Mean Corpuscular HGB Conc 31.3 g/dL (31.6-35.5); Mean Corpuscular Hemoglobin 31.3 pg (28.0-33.3); Mean Platelet Volume 11.8 fL (9.4-12.4); Monocytes # 1.8 K/mcL (0.0-1.3); Monocytes % 11.9 %; Nucleated Red Blood Cells 0.3 /100 WBC (0); Platelet Count 295 K/mcL (140-400); Red Cell Distribution Width 15.9 % (11.5-14.5); Segmented Neutrophils % 70.4 %
[2018-08-07 04:39] LABS: BUN/Creatinine Ratio 32 (6-26); Blood Urea Nitrogen 34 mg/dL (8-23); Calcium 8.6 mg/dL (8.6-10.3); Carbon Dioxide 18 mEq/L (23-29); Chloride 109 mEq/L (98-107); Glucose 210 mg/dL (70-105); Osmolality,Calculated 294 (280-300); Potassium 4.4 mEq/L (3.5-5.1); Sodium 135 mEq/L (136-145); eGFR For Non-African Americans 52 (> 60)
[2018-08-07 04:53] LABS: Neutrophils # 10.8 K/mcL (1.6-8.9)
[2018-08-07] MEDS: Pantoprazole 40 MG VIAL IVP SCH ×2 (06:16→18:00)
--- NOTE | 2018-08-07 07:40 | Internal Med Progress Note ---
<Gorge Marino - Last Filed: 08/07/18 13:03> Hospitalist Progress Note - Encounter Date of Encounter: 08/07/18 Time of Encounter: 08:47 - Subjective Interval History: Ms. Armenta is a 68F with PMH of DM2, PVD, and CAD. She was admitted on 07/29/18 for a right 2nd toe diabetic ulcer with osteomyelitis. POD#3 from a right iliofemora l endarterectomy with Dr. Crandall. Pt seen and examined at bedside. Pt states her leg is bothering her more today. She is oriented to person, place, time, and most events. She continues to complain of right-sided heel pain, but states this has improved. When asked about her leg pain she states "it is just the way I am sitting that hurts right now". She continues to deny any subjective fever or chills, but states her room feels warm. Denies chest pain, abdominal pain, nausea, vomiting, headaches, or dizziness. States she did have an episode of shortness of breath overnight, but that it has resolved now. - Exam Vitals: Temp Pulse Resp BP Pulse Ox 99.7 F H 76 18 127/58 94 08/07/18 07:17 08/07/18 07:17 08/07/18 07:17 08/07/18 07:17 08/07/18 07:17 Exam: General: obese female with mild respiratory distress Head: normocephalic and atraumatic Eyes: PERRL, EOMI, sclera anicteric, conjunctiva pink Neck: supple, trachea midline Lungs: grossly diminished breath sounds. no wheezes, rales or rhonchi. Mild labored breathing on 3lpm O2 Heart: RRR +S1 +S2 no murmurs, clicks, or rubs appreciated GI: abdomen soft, non-tender, non-distended. normoactive bowel sounds Extremities: warm, dressings in place on right heel and right calf with air boot in place. BKA on the left. Radial pulses palpable and symmetrical. no cyanosis. +2 pitting edema of the R leg, difficult to assess edema of L leg. Neuro: A&Ox3. cooperative with exam. no focal deficits. no speech difficulty or abnormality Skin: warm, dry, intact. - Assessment and Plan (1) Altered mental status, unspecified Current Visit: Yes Status: Resolved Assessment and Plan: - Patient now A&Ox3 today, significantly improved from the past couple days - POD#4 from right iliofemoral endarterectomy - 08/04/18: In the morning patient was oriented to person and place, was difficult to arose and lethargic; In the afternoon patient was oriented to name only, she was unable to state her , where she was, why she was here, what month or year it was, and who the president was. She would repeat her name for each question asked. She had moments of lucid behavior lasting ~10 seconds, where she would answer a question before returning to an un-oriented state where she would repeat her name. Patient failed to make eye contact during conve rsation with patient - 08/04/18: Stat ABG, BMP, lactic acid, head CT and ammonia levels were normal - Mental status exams performed throughout the night of 08/04 showed continued confusion - ID consulted for leukocytosis - CXR negative - Respiratory infectious panel negative - Blood cultures pending Plan: mental status significantly improved but continue to monitor mental status closely. Continue vanc. Day 10/10 for cefepime/macrobid therapy. (2) Anemia Current Visit: Yes Status: Acute Assessment and Plan: Improved at 9.4 today No obvious signs of bleeding at this time Pt is on Eliquis, but continue at this time since pt is high risk with CAD and sedentary status Stool occult negative BID protonix for stress ulcer prophylaxis (3) Toe ulcer due to DM Current Visit: Yes Status: Acute Assessment and Plan: Ulcer on right 2nd toe Has poorly controlled DM2 as evidenced by A1c of 8.9 Culture positive for Enterococcus and MRSA sensitive to vanc and cefepime ID on board Podiatry on board Continue vanc Podiatry managing wound care (4) Osteomyelitis Current Visit: Yes Status: Acute Assessment and Plan: Denies pain of right toes despite obvious right 2nd toe wound Continues to complain of right heel pain On day #10 Vanc Has severe right leg ischemia - see below assessment for further details Went to OR with Dr Crandall on 08/03 for a right iliofemoral artery endarterectomy ID is on board, appreciate recs Continue vanc and cefepime Continue to monitor leukocytosis and mental status Clean and dry dressings to wounds and surgical sites ID is consulted, appreciate recs (5) BRET (acute kidney injury) Current Visit: Yes Status: Resolved Assessment and Plan: As seen with post-op labs Cr improved to 1.05 today eGFR improved at 52 today Continue to monitor closely since pt requires vancomycin for osteo Continue to hold home Lasix (6) Asymptomatic bacteriuria Current Visit: Yes Status: Acute Assessment and Plan: Asymptomatic with no abdominal or suprapubic pain Urine culture grew E. coli sensitive to cefepime Leukocytosis improving at 15.5 today, down from 18.8 yesterday Switched to Macrobid per ID (Day 10 ) (7) Peripheral vascular disease Current Visit: Yes Status: Chronic Assessment and Plan: - Hx of Left BKA - CODY from 07/29 was 0 with no ankle pulses - CTA aorta with runnoff from 08/01 revealed "Extensive right lower extremity atherosclerotic disease with right common femoral artery occlusion extending to the distal superficial femoral artery where there is reconstitution of the distal femoral artery related to the patent profunda femoral artery and muscular branches. Triple-vessel runoff to the level of the foot with distal lower leg posterior tibialis occlusion and reconstitution" - Underwent right iliofemoral endarterectomy with Dr. Crandall on 08/03/18 Plan: vascular surgery continues to follow. Continue vancomycin for osteo of right leg. clean and dry dressings to wounds and surgical sites. (8) Diabetes mellitus, type 2 Current Visit: Yes Status: Chronic Assessment and Plan: Insulin dependent DM2 Hgb A1c during this admission was 8.9 - poorly controlled Continue ACHS accuchecks Continue Medium dose SSI Continue 10u Levemir daily (9) Pressure injury of deep tissue of right heel Current Visit: Yes Status: Acute Assessment and Plan: Small ecchymosis noted on 08/02 and pt was instructed to wear air boot Podiatry continuing to follow non-blanching dark erythema stable - measuring approximately 2.5cm x 1.5cm Continue air boot for heel off-loading Continue to monitor Appreciate podiatry recs (10) CAD (coronary artery disease) Current Visit: Yes Status: Chronic Assessment and Plan: CAD diagnosed in 2014 Home meds of lasix, amlodipine, apixaban, atorvastatin, metoprolol xl, and spironolactone Had 4 stents placed in 2014 Continues to deny SOB or chest pain Patient placed on eliquis due to a - flutter in history On telemetry Plan: Post op day 4 for vasc. surg. being followed by Dr. Nicole; Monitor BP and cardiac symptoms, continue home meds except lasix (11) Liver lesion, left lobe Current Visit: Yes Status: Acute Assessment and Plan: As seen on the CTA - ill-defined hypodense areas without expansion at the anterior and posterior aspects of the lateral segment Recommend follow up outpatient MRI and follow up with PCP (12) Severe obesity Current Visit: Yes Status: Chronic Assessment and Plan: BMI of 48.2 Chronic issue (13) Fluid overload Current Visit: Yes Status: Acute Assessment and Plan: Had an episode of shortness of breath overnight at approximately 04:48 Temp was elevated at 100.2 Reported that crackles could be auscultated in lower lung whittaker Pt had been weaned off supplemental O2 at that time, but was placed back on 15lpm via oxymask Received 4mg IV Lasix at that time IV fluids stopped CXR revealed "Mild increase in perihilar and right upper lobe opacities" edema vs infection At this time pt states she no longer feels short of breath. Supplemental O2 weaned down to 3lpm. Continues to having pitting edema of R LE Obtain chest CT to further evaluate with possible underlying infectious process vs atelectasis Will give another 4mg IV Lasix this afternoon DVT Prophylaxis: Eliquis - Time Spent with Patient Total time spent is greater than 50% in coordination of care (as documented) at patient's floor/unit and/or counseling patient: Internal Medicine: Result - Labs CBC & Chem 7: 08/07/18 04:17 08/07/18 04:17 Labs: Short CBC 08/07/18 Range/Units 04:17 WBC 15.4 H (4.3-11.1) K/mcL Hgb 9.4 L (11.5-15.4) g/dL Hct 30.0 L (35.3-44.9) % Plt Count 295 (140-400) K/mcL Neutrophils # 10.8 H (1.6-8.9) K/mcL BMP 08/07/18 04:17 Sodium 135 L Potassium 4.4 Chloride 109 H Carbon Dioxide 18 L BUN 34 H Creatinine 1.05 Glucose 210 H Calcium 8.6 - ABG Interpretation ABG results: ABG ABG pH 7.38 pH Units (7.32-7.45) 08/04/18 16:49 ABG pCO2 42 mmHg (35-45) 08/04/18 16:49 ABG pO2 74 mmHg (85-104) L 08/04/18 16:49 ABG O2 Saturation 94 % (95-98) L 08/04/18 16:49 PT/INR, D-dimer PT 20.9 Seconds (9.4-12.1) H 07/29/18 05:14 - Impressions Impressions Chest X-Ray 08/07/18 04:15 IMPRESSION: Mild increase in perihilar and right upper lobe opacities compatible with mild to moderate pulmonary edema or infection. D/ / Danial Bui / Danial uBi Interpreting Provider: Danial Bui Consult Discharge Plan - Plan Referrals: Monisha Madison CNP [Advanced Practice Nurse] - 08/26/18 1:45 pm Lito Kyle DPM [Partnered Physician] - NONE,PCP [Primary Care Provider] - (Patient is from [facility] no PCP appointment is needed) Maykel Crandall MD [Partnered Physician] - 08/23/18 9:00 am (This appointment is in [place]) <Chantelle George - Last Filed: 08/07/18 15:44> Hospitalist Progress Note - Encounter Date of Encounter: 08/07/18 - Exam Vitals: Temp Pulse Resp BP Pulse Ox 97.8 F 86 18 103/66 91 08/07/18 13:11 08/07/18 13:11 08/07/18 13:11 08/07/18 13:11 08/07/18 13:11 - Assessment and Plan (1) BRET (acute kidney injury) Current Visit: Yes Status: Resolved (2) CAD (coronary artery disease) Current Visit: Yes Status: Chronic (3) Peripheral vascular disease Current Visit: Yes Status: Chronic (4) Diabetes mellitus, type 2 Current Visit: Yes Status: Chronic (5) Toe ulcer due to DM Current Visit: Yes Status: Acute (6) Osteomyelitis Current Visit: Yes Status: Acute (7) Asymptomatic bacteriuria Current Visit: Yes Status: Acute (8) Liver lesion, left lobe Current Visit: Yes Status: Acute (9) Pressure injury of deep tissue of right heel Current Visit: Yes Status: Acute (10) Altered mental status, unspecified Current Visit: Yes Status: Resolved (11) Severe obesity Current Visit: Yes Status: Chronic (12) Anemia Current Visit: Yes Status: Acute (13) Fluid overload Current Visit: Yes Status: Acute - Time Spent with Patient Total time spent is greater than 50% in coordination of care (as documented) at patient's floor/unit and/or counseling patient: Internal Medicine: Result - Labs CBC & Chem 7: 08/07/18 04:17 08/07/18 04:17 Labs: Short CBC 08/07/18 Range/Units 04:17 WBC 15.4 H (4.3-11.1) K/mcL Hgb 9.4 L (11.5-15.4) g/dL Hct 30.0 L (35.3-44.9) % Plt Count 295 (140-400) K/mcL Neutrophils # 10.8 H (1.6-8.9) K/mcL BMP 08/07/18 04:17 Sodium 135 L Potassium 4.4 Chloride 109 H Carbon Dioxide 18 L BUN 34 H Creatinine 1.05 Glucose 210 H Calcium 8.6 - ABG Interpretation ABG results: ABG ABG pH 7.38 pH Units (7.32-7.45) 08/04/18 16:49 ABG pCO2 42 mmHg (35-45) 08/04/18 16:49 ABG pO2 74 mmHg (85-104) L 08/04/18 16:49 ABG O2 Saturation 94 % (95-98) L 08/04/18 16:49 PT/INR, D-dimer PT 20.9 Seconds (9.4-12.1) H 07/29/18 05:14 - Impressions Impressions Chest X-Ray 08/07/18 04:15 IMPRESSION: Mild increase in perihilar and right upper lobe opacities compatible with mild to moderate pulmonary edema or infection. D/ / Danial Bui / Danial Bui Interpreting Provider: Danial Bui - Attending Attestation I examined this patient and my medical decision-making was reviewed with the Resident Physician. I agree with the documented findings, disposition and treatment plan as described except to the extent set forth below. Overnight patient had O2 sats at 73% on room air, and she then required oxymask and O2 sats improved. She had IV Lasix given for likely fluid overload. Patient O2 sats improved to 95% on 10 L of oxymask since then. She has no complaints at this moment. VS: reviewed; Tmax overnight 100.2 F, currently BP/HR in normal limits, and on room air saturating 91%. Physical exam shows absent breath sounds at bases, though body habitus does limit exam, cardiac ausculation normal RRR. Labs: reviewed; WBC 15.4k relatively unchanged since yesterday 15.5k. hemoglobin stable. I/O total documented as 6.6 L for this visit. 1. Sepsis 2. Osteomyelitis. 3. Acute resp failure - fluid overload 4. BRET - resolved 5. AMS - likely acute metabolic encephalopathy - resolved 6. Peripheral vascular disease - POD #3 s/p right lower extremity endarterectomy tolerated procedure well. Vascular Surgery signing off. - Vancomycin, Macobid. Macrobid to finish today. - Continue IV Lasix, 20 mg BID with monitoring of renal function, IV fluids discontinued, strict I/O's - Wean O2 as tolerated. <Gorge Marino - Last Filed: 08/07/18 13:03> (1) Altered mental status, unspecified Qualifiers: Altered mental status type: unspecified Qualified Code(s): R41.82 - Altered mental status, unspecified (2) Anemia Qualifiers: Anemia type: unspecified type Qualified Code(s): D64.9 - Anemia, unspecified (3) Toe ulcer due to DM Qualifiers: Diabetes mellitus type: type 2 Laterality: right Non-pressure ulcer stage: unspecified non-pressure ulcer stage Qualified Code(s): E11.621 - Type 2 diabetes mellitus with foot ulcer; L97.519 - Non-pressure chronic ulcer of other part of right foot with unspecified severity (4) Osteomyelitis Qualifiers: Osteomyelitis type: unspecified type Osteomyelitis location: foot Laterality: right Qualified Code(s): M86.9 - Osteomyelitis, unspecified (8) Diabetes mellitus, type 2 Qualifiers: 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 transplanted heart: [place] heart Associated angina: without angina Qualified Code(s): I25.10 - Atherosclerotic heart disease of [place] coronary artery without angina pectoris (13) Fluid overload Qualifiers: Hypervolemia type: unspecified Qualified Code(s): E87.70 - Fluid overload, unspecified <Chantelle George - Last Filed: 08/07/18 15:44> (2) CAD (coronary artery disease) Qualifiers: Coronary Disease-Associated Artery/Lesion type: [place] artery [place] vs. 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 Diabetes mellitus complication status: with circulatory complication Diabetes mellitus complication detail: with other circulatory complications Qualified Code(s): E11.59 - Type 2 diabetes mellitus with other circulatory complications; Z79.4 - intermediate (current) use of insulin (5) Toe ulcer due to DM Qualifiers: Diabetes mellitus type: type 2 Laterality: right Non-pressure ulcer stage: unspecified non-pressure ulcer stage Qualified Code(s): E11.621 - Type 2 diabetes mellitus with foot ulcer; L97.519 - Non-pressure chronic ulcer of other part of right foot with unspecified severity (6) Osteomyelitis Qualifiers: Osteomyelitis type: unspecified type Osteomyelitis location: foot Laterality: right Qualified Code(s): M86.9 - Osteomyelitis, unspecified (10) Altered mental status, unspecified Qualifiers: Altered mental status type: unspecified Qualified Code(s): R41.82 - Altered mental status, unspecified (12) Anemia Qualifiers: Anemia type: unspecified type Qualified Code(s): D64.9 - Anemia, unspecified (13) Fluid overload Qualifiers: Hypervolemia type: unspecified Qualified Code(s): E87.70 - Fluid overload, unspecified
[2018-08-07] MEDS: amLODIPine 5 MG TABLET PO SCH (08:41)
[2018-08-07] MEDS: Lactobacillus 1 EACH CAP.SPRINK PO SCH (08:41)
[2018-08-07] MEDS: Nitrofurantoin (BID) 100 MG CAPSULE PO SCH ×2 (08:41→15:50)
[2018-08-07] MEDS: Folic Acid 1 MG TABLET PO SCH (08:41)
[2018-08-07] MEDS: Gabapentin 100 MG CAPSULE PO SCH ×3 (08:42→22:56)
[2018-08-07] MEDS: Spironolactone 25 MG TABLET PO SCH (08:42)
[2018-08-07] MEDS: Cholecalciferol (D-3) 1,000 UNIT TABLET PO SCH (08:42)
[2018-08-07] MEDS: Metoprolol XL (24 HR) Succ 50 MG TAB.ER.24H PO SCH (08:42)
[2018-08-07] MEDS: Apixaban 5 MG TABLET PO SCH ×2 (08:42→22:56)
[2018-08-07] MEDS: Insulin LISPRO 300 UNITS/3 ML VIAL SQ SCH ×4 (08:42→22:57)
[2018-08-07] MEDS ORDERED: Vancomycin 500 MG in 0.9 % Sodium Chloride Mini Bag 100 ML IVPB ONE (09:00)
[2018-08-07] MEDS: Furosemide 20 MG/2 ML VIAL IVP SCH (18:00)
[2018-08-07] MEDS: Insulin DETEMIR 100 UNIT/ML X5UNITS SQ SCH (22:56)
[2018-08-08] MEDS: Pantoprazole 40 MG VIAL IVP SCH ×2 (05:02→18:16)
[2018-08-08 05:26] LABS: Basophils # 0.2 K/mcL (0.0-0.2); Basophils % 1.2 %; Eosinophils # 0.6 K/mcL (0.0-0.6); Eosinophils % 4.3 %; Immature Granulocytes % 4.5 % (0-4); Lymphocytes # 1.2 K/mcL (0.6-4.6); Lymphocytes % 8.2 %; Mean Corpuscular Hemoglobin 30.7 pg (28.0-33.3); Mean Platelet Volume 11.2 fL (9.4-12.4); Monocytes # 1.6 K/mcL (0.0-1.3); Monocytes % 11.2 %; Neutrophils # 10.2 K/mcL (1.6-8.9); Nucleated Red Blood Cells 0.7 /100 WBC (0); Platelet Count 297 K/mcL (140-400); Red Blood Count 2.93 M/mcL (3.82-4.97); Red Cell Distribution Width 15.7 % (11.5-14.5); Segmented Neutrophils % 70.6 %
[2018-08-08 05:45] LABS: BUN/Creatinine Ratio 31 (6-26); Blood Urea Nitrogen 31 mg/dL (8-23); Calcium 8.6 mg/dL (8.6-10.3); Carbon Dioxide 21 mEq/L (23-29); Chloride 108 mEq/L (98-107); Glucose 160 mg/dL (70-105); Osmolality,Calculated 292 (280-300); Potassium 3.9 mEq/L (3.5-5.1); Sodium 136 mEq/L (136-145); Vancomycin,Random 15 mcg/mL; eGFR For Non-African Americans 55 (> 60)
[2018-08-08] MEDS: Vancomycin 500 MG in 0.9 % Sodium Chloride Mini Bag 100 ML IVPB SCH (06:58)
[2018-08-08] MEDS: Metoprolol XL (24 HR) Succ 50 MG TAB.ER.24H PO SCH (09:31)
[2018-08-08] MEDS: Apixaban 5 MG TABLET PO SCH ×2 (09:31→22:12)
[2018-08-08] MEDS: Cholecalciferol (D-3) 1,000 UNIT TABLET PO SCH (09:31)
[2018-08-08] MEDS: Lactobacillus 1 EACH CAP.SPRINK PO SCH (09:31)
[2018-08-08] MEDS: Gabapentin 100 MG CAPSULE PO SCH ×3 (09:31→22:13)
[2018-08-08] MEDS: *HR* HYDROcodone/Acet 5/325 mg TABLET PO PRN (09:31)
[2018-08-08] MEDS: Spironolactone 25 MG TABLET PO SCH (09:31)
[2018-08-08] MEDS: Folic Acid 1 MG TABLET PO SCH (09:31)
[2018-08-08] MEDS: Insulin LISPRO 300 UNITS/3 ML VIAL SQ SCH ×4 (09:32→22:22)
[2018-08-08] MEDS: amLODIPine 5 MG TABLET PO SCH (09:32)
[2018-08-08] MEDS: Furosemide 20 MG/2 ML VIAL IVP SCH ×2 (09:33→18:18)
--- NOTE | 2018-08-08 11:13 | Oncology Inp Consult Note ---
Date of Encounter: 08/09/18 Time of Encounter: 09:00 Assessment and Plan (1) Liver lesion, left lobe Status: Acute Assessment and plan: History of lung cancer, SCC s/p SBRT 12/02, in remission, imaging possible post treatment changes. CTA left hepatic lobe lesion, not clear if focal fatty sparing area/malignancy. MRI liver to be considered first and defer biopsy. Discussed with patient this a.m. about further diagnostics and patient is not interested in pursuing this further. She reports that she had additional liver imaging previously and was told that this was related to fatty tissue. Right lung squamous cell cancer treated as noted above. We will return her to clinic once she is discharged for continued surveillance. Sepsis, possible OM, leucocytosis trending down on vancomycin Anemia-infection, possible cr disease surgical procedure Severe PVD, s/p endarterectomy/angioplasty, rt lower ext needs to be on anticoagulation. Plan was reviewed this Am with patient by me - Data of Consult Requesting Physician: Chantelle George MD Primary Care Provider: PCP NONE - Consult Narrative Reason for consult: abnormal scan findings, hx lung cancer History of present illness: HPI 68 YO FEMALE with HTN, hyperlipidemia, CKD, PVD, CAD, s/p stents, TIA--on eliquis, iron def anemia s/p IV iron, DM, carotid stenosis, squamous cell lung cancer stage IB, s/p SBRT 11/2015 to rt upper lobe lung mass, mediastinal adenopath was biopsied by bronch and negative then. She had abd imaging previously that showed ill defined, ~2cm densities in the liver that was thought to be focal area of fat sparing in the liver. CT chest imaging 2017 showed increasing consolidation right upper lobe p osteriorly thought to be radiation effect. Reimaging CT chest stable fibrosis, lung nodule without convincin evidence of progression. CTA abd reported liver density upto 3cm. Patient from [place], had not previously agreed for MRI liver/further investigation. She is on anticoag with eliquis. CTA had shown severe atherosclerotic disease, s/p rt ileofemoral endarterectomy and angioplasty for vascular occlusion. She is being treated for UTI/sepsis, possible rt foot osteomyelitis per ID Past Med Surg Social Fam HX - Past Medical History Medical history: coronary artery disease, diabetes, hyperlipidemia, hypertension, myocardial infarction, peripheral artery disease, thyroid disease, TIA Psychiatric history: depression - Past Surgical History Surgical History: appendectomy, carotid endarterectomy, hysterectomy, other Additional surgical history: LBKA - Social History Smoking Status: Former smoker Smokeless Tobacco Status: No Alcohol use: none Drug use: none - Family History Mother Adopted: No Family Member Ethnicity: Non- Living Status: Hx Family Cardiac Disorders: Yes Hx Family Respiratory Disorders: No Hx Family Cancer: No Hx Family GI Disorders: Yes (Diverticulosis) Hx Family Endocrine Disorder: No Hx Family Neuromuscular Disorders: No Hx Family Neurologic Disorders: No Hx Family HEENT Disorders: No Hx Family Autoimmune Disorders: No Medications and Allergies Apixaban [Eliquis] 5 mg PO BID tablet 07/02/15 [Rx] Folic Acid 1 tab PO DAILY #30 tablet 11/14/15 [Rx] Acetaminophen [Non-Aspirin] 650 mg PO HS 05/29/16 [History] Allopurinol [Zyloprim 300 MG] 300 mg PO QAM 09/17/16 [History] Ferrous Sulfate [Iron] 325 mg PO DAILY 09/17/16 [History] GlipiZIDE XL (24 HR) [Glucotrol XL] 20 mg PO 0800 09/17/16 [History] Atorvastatin [Lipitor] 40 mg PO HS 03/24/17 [History] Cholecalciferol (Vitamin D3) [Vitamin D] 50,000 unit PO Q14D 03/24/17 [History] Bisacodyl [Dulcolax] 10 mg PO DAILY PRN 09/22/17 [History] Ipratropium/Albuterol Neb [Duoneb] 3 ml IH QID PRN 09/22/17 [History] Allopurinol [Zyloprim 100 MG] 100 mg PO HS 03/29/18 [History] Furosemide [Lasix] 80 mg PO BID 03/29/18 [History] Spironolactone [Aldactone] 25 mg PO DAILY 03/29/18 [History] Escitalopram Oxalate 5 mg PO DAILY 07/29/18 [History] Gabapentin [Neurontin] 100 mg PO TID 07/29/18 [History] Insulin DETEMIR [Levemir Flextouch] 30 unit SQ HS 07/29/18 [History] Insulin LISPRO [HumaLOG] 2 - 8 units SQ TIDWM 07/29/18 [History] L. Acidophilus/Pectin, [place] [Acidophilus Capsule] 1 cap PO BID 07/29/18 [History] Levothyroxine Sodium 88 mcg PO DAILY 07/29/18 [History] Metoprolol Succinate [Toprol Xl] 50 mg PO DAILY 07/29/18 [History] Potassium Chloride [K-Tab ER] 10 meq PO DAILY 07/29/18 [History] amLODIPine [Norvasc] 5 mg PO DAILY 07/29/18 [History] levoFLOXacin [Levaquin] 250 mg PO DAILY 07/29/18 [History] Allergy/AdvReac Type Severity Reaction Status Date / Time Penicillins [PCN] Allergy Rash Verified 07/29/18 13:41 Constitutional: Present: fatigue Additional comments: no chest pain Respiratory: Present: dyspnea Additional comments: denies change in stool or nausea Additional comments: no headaches, neuro symptoms Oncology - Exam - Constitutional Exam: alert awake sitting in the bed, obese - Head Head exam: Present: atraumatic, normal inspection - Eye Eye exam: Present: conjuntiva pink, sclera anicteric - ENT ENT exam: Present: mucous membranes moist - Respiratory Respiratory exam: Present: CTAB - Cardiovascular Cardiovascular exam: Present: +S1, +S2 - GI/Abdominal GI/Abdominal exam: Present: distended, normal bowel sounds, soft - Extremities Exam Extremities exam: Present: pedal edema Additional comments: rt foot dressing - Neurological Exam Neurological exam: Present: alert, CN II-XII intact, oriented X3 - Psychiatric Psychiatric exam: Present: normal mood - Skin Skin exam: Present: dry Oncology Inpatient Results Ct abdomen findings, Ct chest reviewed Consult Discharge Plan - Plan Referrals: Monisha Madison CNP [Advanced Practice Nurse] - 08/26/18 1:45 pm Lito Kyle DPM [Partnered Physician] - NONE,PCP [Primary Care Provider] - (Patient is from [facility] no PCP appointment is needed) Maykel Crandall MD [Partnered Physician] - 08/23/18 9:00 am (This appointment is in [place]) Inpatient Charges Provider: Dr. Rubi Bhatt Consult - Inpatient: [id number]
--- NOTE | 2018-08-08 11:43 | Internal Med Progress Note ---
<Roge George Erinyesi - Last Filed: 08/08/18 14:32> Hospitalist Progress Note - Encounter Date of Encounter: 08/08/18 - Exam Vitals: Temp Pulse Resp BP Pulse Ox 98.9 F 86 20 100/54 92 08/08/18 12:40 08/08/18 12:40 08/08/18 12:40 08/08/18 12:40 08/08/18 12:40 - Assessment and Plan (1) BRET (acute kidney injury) Current Visit: Yes Status: Resolved (2) CAD (coronary artery disease) Current Visit: Yes Status: Chronic (3) Peripheral vascular disease Current Visit: Yes Status: Chronic (4) Diabetes mellitus, type 2 Current Visit: Yes Status: Chronic (5) Toe ulcer due to DM Current Visit: Yes Status: Acute (6) Osteomyelitis Current Visit: Yes Status: Acute (7) Asymptomatic bacteriuria Current Visit: Yes Status: Acute (8) Liver lesion, left lobe Current Visit: Yes Status: Acute (9) Pressure injury of deep tissue of right heel Current Visit: Yes Status: Acute (10) Altered mental status, unspecified Current Visit: Yes Status: Resolved (11) Severe obesity Current Visit: Yes Status: Chronic (12) Anemia Current Visit: Yes Status: Acute (13) Fluid overload Current Visit: Yes Status: Acute - Time Spent with Patient Total time spent is greater than 50% in coordination of care (as documented) at patient's floor/unit and/or counseling patient: Internal Medicine: Result - Labs CBC & Chem 7: 08/08/18 04:00 08/08/18 04:00 Labs: Short CBC 08/08/18 Range/Units 04:00 WBC 14.5 H (4.3-11.1) K/mcL Hgb 9.0 L (11.5-15.4) g/dL Hct 29.0 L (35.3-44.9) % Plt Count 297 (140-400) K/mcL Neutrophils # 10.2 H (1.6-8.9) K/mcL BMP 08/08/18 04:00 Sodium 136 Potassium 3.9 Chloride 108 H Carbon Dioxide 21 L BUN 31 H Creatinine 1.01 Glucose 160 H Calcium 8.6 - ABG Interpretation ABG results: ABG ABG pH 7.38 pH Units (7.32-7.45) 08/04/18 16:49 ABG pCO2 42 mmHg (35-45) 08/04/18 16:49 ABG pO2 74 mmHg (85-104) L 08/04/18 16:49 ABG O2 Saturation 94 % (95-98) L 08/04/18 16:49 PT/INR, D-dimer PT 20.9 Seconds (9.4-12.1) H 07/29/18 05:14 - Impressions Impressions Chest CT 08/07/18 11:42 IMPRESSION: 1. New small bilateral pleural effusions with mild passive atelectasis within the bilateral lower lobes. 2. Stable masslike consolidative opacity within the posterior right upper lobe, likely reflecting posttreatment fibrosis, though underlying residual malignancy cannot be excluded. 3. Interval progression of focal consolidation along the inferior aspect of the right major fissure as well as within the right perihilar space which likely reflects chronic progressive posttreatment fibrosis. However, recurrent malignancy is a diagnostic consideration. 4. Stable parenchymal scar within the lingula. There is a new curvilinear focus of consolidation within the left lower lobe, likely atelectasis or parenchymal scar. 5. Persistent paramediastinal opacity along the left perihilar space extending into the left lower lobe, likely posttreatment fibrosis, though underlying malignancy cannot be excluded. 6. Stable subcentimeter nodules within the left lung apex and left lower lobe. 7. 3.4 cm focus of nonspecific low attenuation within the left hepatic lobe, new from prior chest CT studies. Suggest further characterization with a follow-up liver MRI without and with contrast as metastatic disease is a diagnostic consideration. RECOMMENDATIONS: Additionally, consider a PET-CT study to evaluate the metabolic nature of the multifocal airspace opacities, pulmonary nodules, and new left hepatic lobe lesion. D/ / 08/07/2018 15:28:40 Skyler Fried MD / [facility] Interpreting Provider: Skyler Fried MD Consult Discharge Plan - Plan Referrals: Monisha Madison CNP [Advanced Practice Nurse] - 08/26/18 1:45 pm Lito Kyle DPM [Partnered Physician] - NONE,PCP [Primary Care Provider] - (Patient is from [facility] no PCP appointment is needed) Maykel Crandall MD [Partnered Physician] - 08/23/18 9:00 am (This appointment is in [place]) - Attending Attestation I examined this patient and my medical decision-making was reviewed with the Resident Physician. I agree with the documented findings, disposition and treatment plan as described except to the extent set forth below. No acute events. Patient still on 2 L O2 overnight but does not really require O2 during day. VS: reviewed, Labs: reviewed. Lungs sounds clear today but diminished breath sounds at bases. Cardiac sounds normal. Edema of RLE is improved. 1. Sepsis - resolved 2. Osteomyelitis. 3. Acute resp failure - fluid overload is improving 4. BRET - resolved 5. AMS - resolved. likely acute metabolic encephalopathy 6. Peripheral vascular disease - POD #4 s/p right lower extremity endarterectomy tolerated procedure well. Vascular Surgery signing off. 7. Liver lesion 8. Likely MANUEL - sleep study tonight - Vancomycin, Macobid. Macrobid to finish today. - Wean O2 as tolerated. - Diuresis as tolerated - Oncology consulted for liver lesion follow-up - sleep study. If patient continues to improve, anticipate DC in 1-2 days. <Gorge Marino - Last Filed: 08/08/18 18:06> Hospitalist Progress Note - Encounter Date of Encounter: 08/08/18 Time of Encounter: 09:30 - Subjective Interval History: Ms. Armenta is a 68F with PMH of DM2, PVD, and CAD. She was admitted on 07/29/18 for a right 2nd toe diabetic ulcer with osteomyelitis. POD#5 from a right iliofemoral endarterectomy with Dr. Crandall. Pt seen and examined at bedside. Pt states her leg is bothering her some today. She is oriented to person, place, time, and most events. She continues to complain of right-sided heel pain, but states this has improved. Continues to attribute leg pain to position in bed. She continues to deny any fever, chills, chest pain, abdominal pain, nausea, vomiting, headaches, or dizziness. States she did have another episode of shortness of breath overnight, but that it has resolved now. - Exam Vitals: Temp Pulse Resp BP Pulse Ox 99 F 92 20 129/66 91 08/08/18 07:06 08/08/18 07:06 08/08/18 07:06 08/08/18 07:06 08/08/18 07:06 Exam: General: obese female with mild respiratory distress Head: normocephalic and atraumatic Eyes: PERRL, EOMI, sclera anicteric, conjunctiva pink Neck: supple, trachea midline Lungs: grossly diminished breath sounds. no wheezes, rales or rhonchi. Mild labored breathing on 3lpm O2 Heart: RRR +S1 +S2 no murmurs, clicks, or rubs appreciated GI: abdomen soft, non-tender, non-distended. normoactive bowel sounds Extremities: warm, dressings in place on right heel and right calf with air boot in place. BKA on the left. Radial pulses palpable and symmetrical. no cyanosis. +2 pitting edema of the R leg, difficult to assess edema of L leg. Neuro: A&Ox3. cooperative with exam. no focal deficits. no speech difficulty or abnormality Skin: warm, dry, intact. - Assessment and Plan (1) Fluid overload Current Visit: Yes Status: Acute Assessment and Plan: Had an episode of shortness of breath during the night of 08/07 at approximately 04:48 Temp was elevated at 100.2 Reported that crackles could be auscultated in lower lung whittaker Pt had been weaned off supplemental O2 at that time, but was placed back on 15lpm via oxymask Received 40mg IV Lasix at that time IV fluids stopped CXR revealed "Mild increase in perihilar and right upper lobe opacities" edema vs infection CT chest revealed new small bilateral pleural effusions Started IV Lasix 20mg BID Has been intermittently weaned off O2 throughout the day, but continues to require it at night At this time pt states she no longer feels short of breath. Supplemental O2 weaned down to 2lpm. Continues to having pitting edema of R LE and upper extremities Continue IV Lasix BID Overnight O2 qualification (2) Pressure injury of deep tissue of right heel Current Visit: Yes Status: Acute Assessment and Plan: Small ecchymosis noted on 08/02 and pt was instructed to wear air boot Podiatry continuing to follow non-blanching dark erythema significantly worse today - measuring approximately 4cm x 2.5cm with some blanching erythema on the adjacent plantar aspect Continue air boot for heel off-loading Continue to monitor Appreciate podiatry recs (3) Abnormal CT scan, chest Current Visit: Yes Status: Acute Assessment and Plan: CT chest obtained on 08/07 with multiple findings suggestive of posttreatment fibrosis Lesion of the left hepatic lobe visualized again Since pt has hx of lung ca, and new liver lesion, heme-onc was consulted MRI of liver to further evaluate new lesion, likely to be done outpatient Will follow for heme-onc recs (4) Altered mental status, unspecified Current Visit: Yes Status: Resolved Assessment and Plan: - Patient now A&Ox3 today, significantly improved from the past couple days - POD#5 from right iliofemoral endarterectomy - 08/04/18: In the morning patient was oriented to person and place, was difficult to arose and lethargic; In the afternoon patient was oriented to name only, she was unable to state her , where she was, why she was here, what month or year it was, and who the president was. She would repeat her name for each question asked. She had moments of lucid behavior lasting ~10 seconds, where she would answer a question before returning to an un-oriented state where she would repeat her name. Patient failed to make eye contact during conversation with patient - 08/04/18: Stat ABG, BMP, lactic acid, head CT and ammonia levels were normal - Mental status exams performed throughout the night of 08/04 showed continued confusion - ID consulted for leukocytosis - CXR negative - Respiratory infectious panel negative - Blood cultures pending Plan: mental status significantly improved but continue to monitor mental status closely. Continue vanc (5) Anemia Current Visit: Yes Status: Acute Assessment and Plan: Stable at 9.0 today No obvious signs of bleeding at this time Pt is on Eliquis, but continue at this time since pt is high risk with CAD and sedentary status Stool occult negative BID protonix for stress ulcer prophylaxis (6) Toe ulcer due to DM Current Visit: Yes Status: Acute Assessment and Plan: Ulcer on right 2nd toe Has poorly controlled DM2 as evidenced by A1c of 8.9 Culture positive for Enterococcus and MRSA sensitive to vanc and cefepime ID on board Podiatry on board Continue vanc Podiatry managing wound care (7) Osteomyelitis Current Visit: Yes Status: Acute Assessment and Plan: Denies pain of right toes despite obvious right 2nd toe wound Continues to complain of right heel pain On day #11 Vanc Has severe right leg ischemia - see below assessment for further details Went to OR with Dr Crandall on 08/03 for a right iliofemoral artery endarterectomy ID is on board, appreciate recs Continue vanc Continue to monitor leukocytosis and mental status Clean and dry dressings to wounds and surgical sites ID is consulted, appreciate recs (8) BRET (acute kidney injury) Current Visit: Yes Status: Resolved Assessment and Plan: As seen with post-op labs Cr improved to 1.01 today eGFR improved at 55 today Continue to monitor closely since pt requires vancomycin for osteo Continue to hold home Lasix (9) Asymptomatic bacteriuria Current Visit: Yes Status: Acute Assessment and Plan: Asymptomatic with no abdominal or suprapubic pain Urine culture grew E. coli sensitive to cefepime Leukocytosis improving at 14.5 today, down from 15.5 yesterday Completed 10 day course of Cefepime/Macrobid (10) Peripheral vascular disease Current Visit: Yes Status: Chronic Assessment and Plan: - Hx of Left BKA - CODY from 07/29 was 0 with no ankle pulses - CTA aorta with runnoff from 08/01 revealed "Extensive right lower extremity atherosclerotic disease with right common femoral artery occlusion extending to the distal superficial femoral artery where there is reconstitution of the distal femoral artery related to the patent profunda femoral artery and muscular branches. Triple-vessel runoff to the level of the foot with distal lower leg posterior tibialis occlusion and reconstitution" - Underwent right iliofemoral endarterectomy with Dr. Crandall on 08/03/18 Plan: vascular surgery continues to follow. Continue vancomycin for osteo of right leg. clean and dry dressings to wounds and surgical sites. (11) Diabetes mellitus, type 2 Current Visit: Yes Status: Chronic Assessment and Plan: Insulin dependent DM2 Hgb A1c during this admission was 8.9 - poorly controlled Continue ACHS accuchecks Continue Medium dose SSI Continue 10u Levemir daily (12) CAD (coronary artery disease) Current Visit: Yes Status: Chronic Assessment and Plan: CAD diagnosed in 2014 Home meds of lasix, amlodipine, apixaban, atorvastatin, metoprolol xl, and spironolactone Had 4 stents placed in 2014 Continues to deny SOB or chest pain Patient placed on eliquis due to a - flutter in history On telemetry Plan: Post op day 5 for vasc. surg. being followed by Dr. Nicole; Monitor BP and cardiac symptoms, continue home meds except lasix (13) Liver lesion, left lobe Current Visit: Yes Status: Acute Assessment and Plan: As seen on the CTA - ill-defined hypodense areas without expansion at the anterior and posterior aspects of the lateral segment Recommend follow up outpatient MRI and follow up with PCP (14) Severe obesity Current Visit: Yes Status: Chronic Assessment and Plan: BMI of 48.2 Chronic issue DVT Prophylaxis: Eliquis - Time Spent with Patient Total time spent is greater than 50% in coordination of care (as documented) at patient's floor/unit and/or counseling patient: Internal Medicine: Result - Labs CBC & Chem 7: 08/08/18 04:00 08/08/18 04:00 Labs: Short CBC 08/08/18 Range/Units 04:00 WBC 14.5 H (4.3-11.1) K/mcL Hgb 9.0 L (11.5-15.4) g/dL Hct 29.0 L (35.3-44.9) % Plt Count 297 (140-400) K/mcL Neutrophils # 10.2 H (1.6-8.9) K/mcL BMP 08/08/18 04:00 Sodium 136 Potassium 3.9 Chloride 108 H Carbon Dioxide 21 L BUN 31 H Creatinine 1.01 Glucose 160 H Calcium 8.6 - ABG Interpretation ABG results: ABG ABG pH 7.38 pH Units (7.32-7.45) 08/04/18 16:49 ABG pCO2 42 mmHg (35-45) 08/04/18 16:49 ABG pO2 74 mmHg (85-104) L 08/04/18 16:49 ABG O2 Saturation 94 % (95-98) L 08/04/18 16:49 PT/INR, D-dimer PT 20.9 Seconds (9.4-12.1) H 07/29/18 05:14 - Impressions Impressions Chest CT 08/07/18 11:42 IMPRESSION: 1. New small bilateral pleural effusions with mild passive atelectasis within the bilateral lower lobes. 2. Stable masslike consolidative opacity within the posterior right upper lobe, likely reflecting posttreatment fibrosis, though underlying residual malignancy cannot be excluded. 3. Interval progression of focal consolidation along the inferior aspect of the right major fissure as well as within the right perihilar space which likely reflects chronic progressive posttreatment fibrosis. However, recurrent malignancy is a diagnostic consideration. 4. Stable parenchymal scar within the lingula. There is a new curvilinear focus of consolidation within the left lower lobe, likely atelectasis or parenchymal scar. 5. Persistent paramediastinal opacity along the left perihilar space extending into the left lower lobe, likely posttreatment fibrosis, though underlying malignancy cannot be excluded. 6. Stable subcentimeter nodules within the left lung apex and left lower lobe. 7. 3.4 cm focus of nonspecific low attenuation within the left hepatic lobe, new from prior chest CT studies. Suggest further characterization with a follow-up liver MRI without and with contrast as metastatic disease is a diagnostic consideration. RECOMMENDATIONS: Additionally, consider a PET-CT study to evaluate the metabolic nature of the multifocal airspace opacities, pulmonary nodules, and new left hepatic lobe lesion. D/ / 08/07/2018 15:28:40 Skyler Fried MD / [facility] Interpreting Provider: Skyler Fried MD <Chantelle George - Last Filed: 08/08/18 14:32> (2) CAD (coronary artery disease) Qualifiers: Coronary Disease-Associated Artery/Lesion type: [place] artery [place] vs. t ransplanted heart: [place] heart Associated angina: without angina Qualified Code(s): I25.10 - Atherosclerotic heart disease of [place] coronary artery without angina pectoris (4) Diabetes mellitus, type 2 Qualifiers: Diabetes mellitus halfway insulin use: with halfway use Diabetes mellitus complication status: with circulatory complication Diabetes mellitus co mplication detail: with other circulatory complications Qualified Code(s): E11.59 - Type 2 diabetes mellitus with other circulatory complications; Z79.4 - brick carrier (current) use of insulin (5) Toe ulcer due to DM Qualifiers: Diabetes mellitus type: type 2 Laterality: right Non-pressure ulcer stage: unspecified non-pressure ulcer stage Qualified Code(s): E11.621 - Type 2 diabetes mellitus with foot ulcer; L97.519 - Non-pressure chronic ulcer of other part of right foot with unspecified severity (6) Osteomyelitis Qualifiers: Osteomyelitis type: unspecified type Osteomyelitis location: foot Laterality: right Qualified Code(s): M86.9 - Osteomyelitis, unspecified (10) Altered mental status, unspecified Qualifiers: Altered mental status type: unspecified Qualified Code(s): R41.82 - Altered mental status, unspecified (12) Anemia Qualifiers: Anemia type: unspecified type Qualified Code(s): D64.9 - Anemia, unspecified (13) Fluid overload Qualifiers: Hypervolemia type: unspecified Qualified Code(s): E87.70 - Fluid overload, unspecified <Gorge Marino - Last Filed: 08/08/18 18:06> (1) Fluid overload Qualifiers: Hypervolemia type: unspecified Qualified Code(s): E87.70 - Fluid overload, unspecified (4) Altered mental status, unspecified Qualifiers: Altered mental status type: unspecified Qualified Code(s): R41.82 - Altered mental status, unspecified (5) Anemia Qualifiers: Anemia type: unspecified type Qualified Code(s): D64.9 - Anemia, unspecified (6) Toe ulcer due to DM Qualifiers: Diabetes mellitus type: type 2 Laterality: right Non-pressure ulcer stage: unspecified non-pressure ulcer stage Qualified Code(s): E11.621 - Type 2 diabetes mellitus with foot ulcer; L97.519 - Non-pressure chronic ulcer of other part of right foot with unspecified severity (7) Osteomyelitis Qualifiers: Osteomyelitis type: unspecified type Osteomyelitis location: foot Laterality: right Qualified Code(s): M86.9 - Osteomyelitis, unspecified (11) Diabetes mellitus, type 2 Qualifiers: Diabetes mellitus halfway insulin use: with halfway use Diabetes mellitus complication status: with circulatory complication Diabetes mellitus complication detail: with other circulatory complications Qualified Code(s): E11.59 - Type 2 diabetes mellitus with other circulatory complications; Z79.4 - MCC (current) use of insulin (12) CAD (coronary artery disease) Qualifiers: Coronary Disease-Associated Artery/Lesion type: [place] artery [place] vs. transplanted heart: [place] heart Associated angina: without angina Qualified Code(s): I25.10 - Atherosclerotic heart disease of [place] coronary artery without angina pectoris
[2018-08-08] MEDS: Insulin DETEMIR 100 UNIT/ML X5UNITS SQ SCH (22:13)
[2018-08-09 04:35] LABS: Basophils # 0.2 K/mcL (0.0-0.2); Eosinophils # 0.7 K/mcL (0.0-0.6); Eosinophils % 5.1 %; Hematocrit 27.8 % (35.3-44.9); Hemoglobin 8.9 g/dL (11.5-15.4); Immature Granulocytes % 4.6 % (0-4); Lymphocytes % 6.7 %; Mean Corpuscular Volume 96.9 fL (83.0-100.0); Mean Platelet Volume 11.2 fL (9.4-12.4); Monocytes # 1.5 K/mcL (0.0-1.3); Monocytes % 10.1 %; Neutrophils # 10.5 K/mcL (1.6-8.9); Platelet Count 314 K/mcL (140-400); Red Blood Count 2.87 M/mcL (3.82-4.97); Red Cell Distribution Width 15.7 % (11.5-14.5); Segmented Neutrophils % 72.5 %
[2018-08-09 04:57] LABS: BUN/Creatinine Ratio 26 (6-26); Blood Urea Nitrogen 24 mg/dL (8-23); Calcium 8.4 mg/dL (8.6-10.3); Carbon Dioxide 24 mEq/L (23-29); Chloride 107 mEq/L (98-107); Glucose 141 mg/dL (70-105); Osmolality,Calculated 286 (280-300); Potassium 3.6 mEq/L (3.5-5.1); Sodium 135 mEq/L (136-145); eGFR For Non-African Americans > 60 (> 60)
[2018-08-09] MEDS: Vancomycin 500 MG in 0.9 % Sodium Chloride Mini Bag 100 ML IVPB SCH (06:20)
[2018-08-09] MEDS: Pantoprazole 40 MG VIAL IVP SCH (06:21)
[2018-08-09] MEDS: Insulin LISPRO 300 UNITS/3 ML VIAL SQ SCH (08:23)
[2018-08-09] MEDS: Furosemide 20 MG/2 ML VIAL IVP SCH (08:24)
[2018-08-09] MEDS: Spironolactone 25 MG TABLET PO SCH (08:25)
[2018-08-09] MEDS: Lactobacillus 1 EACH CAP.SPRINK PO SCH (08:25)
[2018-08-09] MEDS: Apixaban 5 MG TABLET PO SCH (08:25)
[2018-08-09] MEDS: amLODIPine 5 MG TABLET PO SCH (08:26)
[2018-08-09] MEDS: Gabapentin 100 MG CAPSULE PO SCH ×2 (08:26→15:48)
[2018-08-09] MEDS: Cholecalciferol (D-3) 1,000 UNIT TABLET PO SCH (08:27)
[2018-08-09] MEDS: Metoprolol XL (24 HR) Succ 50 MG TAB.ER.24H PO SCH (08:27)
[2018-08-09] MEDS: Folic Acid 1 MG TABLET PO SCH (08:27)
--- NOTE | 2018-08-09 10:30 | Infectious Disease Progress No ---
Date of Encounter: 08/09/18 Time of Encounter: 10:27 - Assessment and Plan (1) Sepsis Current Visit: No Status: Acute The patient had leukocytosis and tachypnea on admission with BRET and AMS. Likely secondary to osteomyelitis and UTI. Improved. WBC remains elevated. Tachycardia and tachypnea have resolved. Blood cultures drawn 07/29/18 were negative x 2 sets. Repeat blood cultures drawn 08/05/18 are NGTD x 2 sets. Recommendations: Await repeat blood cultures. Wound care per the Podiatry team. Continue Vancomycin IV. Pharmacy to dose. Goal trough ~15. Duration of treatment depends on the clinical picture. Will likely need 6 weeks of IV vancomycin for her osteomyelitis. Monitor renal function and for drug toxicity and dose-adjust antibiotics. We will need weekly CBC, BUN/creatinine, ESR, CRP, and vancomycin trough. Will need weekly PICC line care per protocol. Follow-up with ID 08/26/18 at 1345. Qualifiers: Qualified Code(s): A41.9 - Sepsis, unspecified organism (2) Osteomyelitis Current Visit: Yes Status: Acute Location: Right foot distal 2nd toe. Causative organism: MRSA and E. faecalis. Secondary to chronic non-healing DFU. Podiatry consulted and following. No surgery planned at this point. Currently on Vancomycin. Qualifiers: Qualified Code(s): M86.9 - Osteomyelitis, unspecified (3) UTI (urinary tract infection) Current Visit: Yes Status: Resolved Causative organism: E. coli. UTI vs. asymptomatic bacteriurua. Completed 10 day course of treatment (Cefepime and Macrobid). Qualifiers: Qualified Code(s): N39.0 - Urinary tract infection, site not specified (4) BRET (acute kidney injury) Current Visit: Yes Status: Resolved Likely secondary to sepsis. Resolved. (5) Peripheral vascular disease Current Visit: Yes Status: Chronic Status post right iliofemoral endarterectomy 08/03/[address] Nicole. Right foot TCPO2 monitoring consistent with healing, but right ankle and calf not consistent with healing. (6) Toe ulcer due to DM Current Visit: Yes Status: Acute Qualifiers: Qualified Code(s): E11.621 - Type 2 diabetes mellitus with foot ulcer; L97.519 - Non-pressure chronic ulcer of other part of right foot with unspecified severity (7) S/P amputation of limb Current Visit: Yes Status: Chronic (8) Atrial fibrillation Current Visit: Yes Status: Chronic Qualifiers: Qualified Code(s): I48.1 - Persistent atrial fibrillation (9) Insulin dependent diabetes mellitus Current Visit: Yes Status: Chronic Strict glucose control. - Subjective Interval history: Patient seen and examined. No acute events noted overnight. Patient resting quietly in bed. Complains of intermittent pain in the right groin that makes her nauseated. Denies fevers or chills or rigors. Denies chest pain, shortness of breath, or cough. Denies vomiting or diarrhea or constipation. She denies abdominal pain or urinary complaints. She would like to have the balderas removed. She denies any oral thrush or new skin lesions. Infect Dis PN-Objective Data - Labs CBC & Chem 7: 08/09/18 04:24 08/09/18 04:24 Labs: Laboratory Results - last 24 hr 08/07/18 08/08/18 08/08/18 19:16 07:14 12:47 WBC RBC Hgb Hct MCV MCH MCHC RDW Plt Count MPV Immature Gran % Seg Neutrophils % Lymphocytes % Monocytes % Eosinophils % Basophils % Neutrophils # Lymphocytes # Monocytes # Eosinophils # Basophils # Nucleated RBCs/100 WBC Sodium Potassium Chloride Carbon Dioxide BUN Creatinine Est GFR ( Amer) Est GFR (Non-Af Amer) BUN/Creatinine Ratio Glucose POC Glucose 213 H 161 H 255 H Calculated Osmolality Calcium 08/08/18 08/08/18 08/09/18 17:48 20:49 04:24 WBC 14.4 H RBC 2.87 L Hgb 8.9 L Hct 27.8 L MCV 96.9 MCH 31.0 MCHC 32.0 RDW 15.7 H Plt Count 314 MPV 11.2 Immature Gran % 4.6 H Seg Neutrophils % 72.5 Lymphocytes % 6.7 Monocytes % 10.1 Eosinophils % 5.1 Basophils % 1.0 Neutrophils # 10.5 H Lymphocytes # 1.0 Monocytes # 1.5 H Eosinophils # 0.7 H Basophils # 0.2 Nucleated RBCs/100 WBC 1.0 H Sodium Potassium Chloride Carbon Dioxide BUN Creatinine Est GFR ( Amer) Est GFR (Non-Af Amer) BUN/Creatinine Ratio Glucose POC Glucose 227 H 186 H Calculated Osmolality Calcium 08/09/18 04:24 WBC RBC Hgb Hct MCV MCH MCHC RDW Plt Count MPV Immature Gran % Seg Neutrophils % Lymphocytes % Monocytes % Eosinophils % Basophils % Neutrophils # Lymphocytes # Monocytes # Eosinophils # Basophils # Nucleated RBCs/100 WBC Sodium 135 L Potassium 3.6 Chloride 107 Carbon Dioxide 24 BUN 24 H Creatinine 0.91 Est GFR ( Amer) > 60 Est GFR (Non-Af Amer) > 60 BUN/Creatinine Ratio 26 Glucose 141 H POC Glucose Calculated Osmolality 286 Calcium 8.4 L Cultures: Cultures 08/05/18 09:21 Blood Culture - Preliminary Peripheral Venipuncture Culture is incubating and being continuously monitored for growth. Final report to follow. 08/05/18 08:52 Blood Culture - Preliminary Peripheral Venipuncture Culture is incubating and being continuously monitored for growth. Final report to follow. 07/29/18 05:14 Blood Culture - Final Peripheral Venipuncture No growth. Final report. 07/29/18 05:03 Blood Culture - Final Peripheral Venipuncture No growth. Final report. 07/29/18 05:35 Wound Culture - Final Second Right Toe Enterococcus faecalis Methicillin Resistant S.aureus 07/29/18 14:37 Urine Culture - Final Urine,Clean Catch Escherichia coli Serology 08/06/18 08/05/18 07/29/18 Range/Units 15:00 11:30 14:37 Urine Color Yellow (Yellow) Urine Clarity Cloudy A (Clear) Urine pH 5.5 (5.0-8.0) pH Units Ur Specific [place] 1.017 (1.010-1.025) Urine Protein Negative (Neg-Trace) mg/dL Urine Glucose (UA) Normal (Normal) mg/dL Urine Ketones Negative (Negative) mg/dL Urine Blood Small H (Negative) Urine Nitrite Positive A (Negative) Urine Bilirubin Negative (Negative) Urine Urobilinogen Normal (Normal) mg/dL Ur Leukocyte Esterase Large H (Negative) Urine Microscopic RBC 0-3 (0-3) per hpf Urine Microscopic WBC TNTC H (0-3) per hpf Ur Squamous Epith Cells Many H (None-Few) per lpf Urine Bacteria Many H (None-Few) per hpf Hyaline Casts None Seen (None-Few) per lpf Stool Occult Blood Negative (Negative) Chlamy pneumoniae PCR Not Detected (Not Detect) Adenovirus (PCR) Not Detected (Not Detect) B. pertussis DNA (PCR) Not Detected (Not Detect) B.parapertussis DNA PCR Not Detected (Not Detect) Coronavirus OC43 (PCR) Not Detected (Not Detect) Coronavirus HKU1 (PCR) Not Detected (Not Detect) Coronavirus 229E (PCR) Not Detected (Not Detect) Coronavirus NL63 (PCR) Not Detected (Not Detect) Human Metapneumovir PCR Not Detected (Not Detect) Influenza A (H1) PCR Not Detected (Not Detect) Influ A (H1N1/09) PCR Not Detected (Not Detect) Influenza A (H3) PCR Not Detected (Not Detect) Influenza A Untype (PCR) Not Detected (Not Detect) Influenza Type B (PCR) Not Detected (Not Detect) M.pneumoniae DNA (PCR) Not Detected (Not Detect) Parainfluenza 1 (PCR) Not Detected (Not Detect) Parainfluenza 2 (PCR) Not Detected (Not Detect) Parainfluenza 3 (PCR) Not Detected (Not Detect) Parainfluenza 4 (PCR) Not Detected (Not Detect) RSV (PCR) Not Detected (Not Detect) Entero/Rhino (PCR) Not Detected (Not Detect) Exam - Constitutional Vitals: Temp Pulse Resp BP Pulse Ox 98.7 F 92 17 122/73 90 08/09/18 07:18 08/09/18 07:18 08/09/18 07:18 08/09/18 07:18 08/09/18 07:40 General appearance: cooperative, morbidly obese, no acute distress - Head Head exam: Present: atraumatic, normal inspection, normocephalic - Eye Eye exam: Present: EOMI, normal appearance, PERRL Pupils: Present: normal accommodation - ENT ENT exam: Present: mucous membranes moist - Neck Neck exam: Present: normal inspection - Respiratory Respiratory exam: Present: CTAB. Absent: rales, respiratory distress, rhonchi, wheezes - Cardiovascular Cardiovascular exam: Present: RRR, +S1, +S2 - GI/Abdominal GI/Abdominal exam: Present: distended (obese), normal bowel sounds, soft. Absent: tenderness Additional comments: Balderas catheter noted to be draining clear yellow urine. - Extremities Exam Extremities exam: Absent: normal inspection (Right foot dressing C/D/I.) Additional comments: Right groin surgical site BUD with wound edges well-approximated without redness, warmth, or drainage. Left AKA stump without abnormality. - Neurological Exam Neurological exam: Present: alert, oriented X3, no focal deficits - Psychiatric Psychiatric exam: Present: normal affect, normal mood - Skin Skin exam: Present: dry, intact, normal color, warm Consult Discharge Plan - Plan Referrals: Monisha Madison CNP [Advanced Practice Nurse] - 08/26/18 1:45 pm Lito Kyle DPM [Partnered Physician] - NONE,PCP [Primary Care Provider] - (Patient is from [facility] no PCP appointment is needed) Maykel Crandall MD [Partnered Physician] - 08/23/18 9:00 am (This appointment is in [place]) Prescriptions: Furosemide [Lasix] 40 mg PO BID 30 Days #60 tablet - Attending Attestation I examined this patient and my medical decision-making was reviewed with the Resident Physician. I agree with the documented findings, disposition and treatment plan as described except to the extent set forth below.
--- NOTE | 2018-08-09 11:10 | Discharge Summary ---
<Nena Marinonimesh Alvarado - Last Filed: 08/09/18 16:16> - NOTES TO OUTPATIENT PROVIDER Notes to Outpatient Provider: Ms. Armenta was admitted on 07/29/18 for a diabetic foot/toe ulcer with podiatry. X-ray of the foot from the day of admission was suggestive of osteomyelitis of the 2nd toe on the medial aspect. Labs revealed the pt had an BRET and home Lasix was held. Pt was started on IV Vancomycin and Cefepime for osteomyelitis. CODY was obtained which showed no pulses in that foot and vascular surgery was consulted. CTA aorta with runoff into the right lower extremity was obtained which revealed extensive atherosclerotic disease. Pt went to the OR with Dr. Crandall on 08/03 for a right iliofemoral endarterectomy. Pt tolerated procedure well, however she did have significant post-operative confusion. During that time CT and MRI of the head/brain were negative for acute abnormality. The patient also had significant respiratory difficulty in the post-op period, requiring supplemental O2. CXRs and chest CT were negative for infectious processes but did show pulmonary edema signifying volume overload. Pt was gently diuresed with the equivalent of half her home Lasix dose. Kidney functions tolerated this along with the IV vancomycin. At time of discharge, Infectious Disease was recommending a total minimum 6 week course of IV Vancomycin. Basic Metabolic Panels and Vancomycin Troughs will need to be drawn and closely monitored at least once a week. The pt was also sent with a script for a lower dose of Lasix (40mg BID PO). If the patient begins experiencing shortness of breath and increased cough, the dose may need to be increased as tolerated by kidney functions. Orders not resulted at time of discharge: Pending orders 08/05/18 09:21 Culture,Blood [BC] Routine 08/10/18 04:00 Ferritin AM 0400 Folate AM 0400 Iron Profile AM 0400 LDH [Lactate Dehydrogenase] AM 0400 PTT [Activated Partial Thrombo Time] [COAG] AM 0400 Prothrombin Time INR [COAG] AM 0400 Vitamin B12 AM 0400 08/10/18 05:00 Vancomycin,Trough Timed Date of Encounter: 08/09/18 Time of Encounter: 08:45 - Discharge Diagnosis (1) Fluid overload Priority: Secondary Status: Acute Assessment and Plan: Had an episode of shortness of breath during the night of 08/07 at approximately 04:48 Temp was elevated at 100.2 Reported that crackles could be auscultated in lower lung whittaker Pt had been weaned off supplemental O2 at that time, but was placed back on 15lpm via oxymask Received 40mg IV Lasix at that time IV fluids stopped CXR revealed "Mild increase in perihilar and right upper lobe opacities" edema vs infection CT chest revealed new small bilateral pleural effusions Started IV Lasix 20mg BID Has been intermittently weaned off O2 throughout the day, but continues to require it at night Continue 40mg po Lasix BID which is half of pt's normal home dose Qualifiers: Hypervolemia type: unspecified Qualified Code(s): E87.70 - Fluid overload, unspecified (2) Pressure injury of deep tissue of right heel Priority: Secondary Status: Acute Assessment and Plan: Small ecchymosis noted on 08/02 and pt was instructed to wear air boot Podiatry continuing to follow non-blanching dark erythema significantly worse today - measuring approximately 4cm x 2.5cm with some blanching erythema on the adjacent plantar aspect Continue air boot for heel off-loading Continue to monitor Appreciate podiatry recs (3) Abnormal CT scan, chest Priority: Secondary Status: Acute Assessment and Plan: CT chest obtained on 08/07 with multiple findings suggestive of posttreatment fibrosis Lesion of the left hepatic lobe visualized again Since pt has hx of lung ca, and new liver lesion, heme-onc was consulted MRI of liver to further evaluate new lesion, likely to be done outpatient Will follow for heme-onc recs (4) Altered mental status, unspecified Priority: Secondary Status: Resolved Assessment and Plan: - Patient now A&Ox3 today, significantly improved from the past couple days - POD#5 from right iliofemoral endarterectomy - 08/04/18: In the morning patient was oriented to person and place, was difficult to arose and lethargic; In the afternoon patient was oriented to name only, she was unable to state her , where she was, why she was here, what month or year it was, and who the president was. She would repeat her name for each question asked. She had moments of lucid behavior lasting ~10 seconds, where she would answer a question before returning to an un-oriented state where she would repeat her name. Patient failed to make eye contact during conversation with patient - 08/04/18: Stat ABG, BMP, lactic acid, head CT and ammonia levels were normal - Mental status exams performed throughout the night of 08/04 showed continued confusion - ID consulted for leukocytosis - CXR negative - Respiratory infectious panel negative - Blood cultures pending Plan: mental status significantly improved but continue to monitor mental status closely. Continue vanc Qualifiers: Altered mental status type: unspecified Qualified Code(s): R41.82 - Altered mental status, unspecified (5) Anemia Priority: Secondary Status: Acute Assessment and Plan: Stable at 8.9 today No obvious signs of bleeding at this time Pt is on Eliquis, but continue at this time since pt is high risk with CAD and sedentary status Stool occult negative ok to discontinue PPI on discharge Qualifiers: Anemia type: unspecified type Qualified Code(s): D64.9 - Anemia, unspecified (6) Toe ulcer due to DM Priority: Primary Status: Acute Assessment and Plan: Ulcer on right 2nd toe Has poorly controlled DM2 as evidenced by A1c of 8.9 Culture positive for Enterococcus and MRSA sensitive to vanc and cefepime ID on board Podiatry on board Continue vanc Podiatry managing wound care Qualifiers: Diabetes mellitus type: type 2 Laterality: right Non-pressure ulcer stage: unspecified non-pressure ulcer stage Qualified Code(s): E11.621 - Type 2 diabetes mellitus with foot ulcer; L97.519 - Non-pressure chronic ulcer of other part of right foot with unspecified severity (7) Osteomyelitis Priority: Primary Status: Acute Assessment and Plan: Denies pain of right toes despite obvious right 2nd toe wound Continues to complain of right heel pain On day #11 Vanc Has severe right leg ischemia - see below assessment for further details Went to OR with Dr Crandall on 08/03 for a right iliofemoral artery endarterectomy ID is on board, appreciate recs Continue vanc Continue to monitor leukocytosis and mental status Clean and dry dressings to wounds and surgical sites ID is consulted, appreciate recs Qualifiers: Osteomyelitis type: unspecified type Osteomyelitis location: foot Laterality: right Qualified Code(s): M86.9 - Osteomyelitis, unspecified (8) BRET (acute kidney injury) Priority: Secondary Status: Resolved Assessment and Plan: As seen with post-op labs Cr improved to 0.91 today eGFR improved at >60 today Continue to monitor closely since pt requires vancomycin for osteo Continue Lasix as above (9) Asymptomatic bacteriuria Priority: Secondary Status: Acute Assessment and Plan: Asymptomatic with no abdominal or suprapubic pain Urine culture grew E. coli sensitive to cefepime Leukocytosis improving at 14.5 today, down from 15.5 yesterday Completed 10 day course of Cefepime/Macrobid (10) Peripheral vascular disease Priority: Secondary Status: Chronic Assessment and Plan: - Hx of Left BKA - CODY from 07/29 was 0 with no ankle pulses - CTA aorta with runnoff from 08/01 revealed "Extensive right lower extremity atherosclerotic disease with right common femoral artery occlusion extending to the distal superficial femoral artery where there is reconstitution of the distal femoral artery related to the patent profunda femoral artery and muscular branches. Triple-vessel runoff to the level of the foot with distal lower leg posterior tibialis occlusion and reconstitution" - Underwent right iliofemoral endarterectomy with Dr. Crandall on 08/03/18 Plan: Continue vancomycin for osteo of right leg. clean and dry dressings to wounds and surgical sites. (11) Diabetes mellitus, type 2 Priority: Secondary Status: Chronic Assessment and Plan: Resume home medications and follow up with PCP for further management Qualifiers: Diabetes mellitus mcc insulin use: with terminal superintendent use Diabetes mellitus complication status: with circulatory complication Diabetes mellitus complication detail: with other circulatory complications Qualified Code(s): E11.59 - Type 2 diabetes mellitus with other circulatory complications; Z79.4 - USP (current) use of insulin (12) CAD (coronary artery disease) Priority: Secondary Status: Chronic Assessment and Plan: CAD diagnosed in 2015 Home meds of lasix, amlodipine, apixaban, atorvastatin, metoprolol xl, and spironolactone Had 4 stents placed in 2014 Continues to deny SOB or chest pain Patient placed on eliquis due to a - flutter in history On telemetry Plan: Post op day 6 from vascular surgery as above Continue home meds with changes to Lasix as above Qualifiers: Coronary Disease-Associated Artery/Lesion type: [place] artery [place] vs. transplanted heart: [place] heart Associated angina: without angina Qualified Code(s): I25.10 - Atherosclerotic heart disease of [place] coronary artery w ithout angina pectoris (13) Liver lesion, left lobe Priority: Secondary Status: Acute Assessment and Plan: As seen on the CTA - ill-defined hypodense areas without expansion at the anterior and posterior aspects of the lateral segment Per heme/on recs, they recommended outpatient MRI, however pt stated she was not interested in pursuing this, stating she has had imaging of her liver previously which revealed fatty disease. (14) Severe obesity Priority: Secondary Status: Chronic Assessment and Plan: BMI of 48.2 Chronic issue Hospital course: Ms. Armenta is a 68 year old female who presented to the ER on 07/29/18 for right diabetic toe ulcer. Evaluation of the patient in the ED revealed an ulcer on the medial aspect of the right 2nd phalange. Patient was sent to the ER after she failed oral antibiotic therapy per podiatry. The patient was admitted and placed on empiric IV cefepime and vancomycin. On analysis of her BMP, she was found to have an acute kidney injury which was treated with IV fluids and holding her home Lasix. On 07/30/18 patients x-ray of the foot was concerning for osteomyelitis. An CODY was ordered due to her PMHx of PVD and was found to be 0. Vascular surgery was consulted for further evaluation On 07/31/18 a CTA of the aorta with runoff found that the R common femoral artery demonstrated near complete occlusion, with the R femoral profunda patent. The CTA also showed a liver lesion with ill defined hypodense areas in the left hepatic lobe. At that time the patient elected for outpatient follow up of the liver lesion. On 08/02/18 the patient complained of R heel pain due to her air boot. On physical exam she was found to have deep pressure ecchymosis on her R heel. The patient was instructed to continue to wear the air boot per podiatry. On 08/03/18 the patient went to the OR for R iliofemoral artery endarterectomy by Dr. Crandall. The surgery was successful in providing pulsatile flow to her R foot. However on POD#1 the patient was found to be grossly confused, only oriented to person. She was worked up for ischemic, metabolic and thrombotic causes of mental status change. Results of the work up were unremarkable, including both a CT and MRI of the brain/head. Pt's mental status continued to improve over the next few days. The patient also had significant respiratory difficulty in the post-op period, requiring supplemental O2. CXRs and chest CT were negative for infectious processes but did show pulmonary edema signifying volume overload, as well as multiple post-radiation changes which were unable to be distinguished from possible recurrence of lung cancer particularly including the aforementioned hepatic lesion. Heme/on was consulted at this time. They recommended outpatient follow up with MRI of the liver to further evaluate the lesion, however per their discussion the patient declined. The patient was gently diuresed with the equivalent of half her home Lasix dose. Kidney functions tolerated this along with the continued IV vancomycin. Infectious disease recommended changing from Cefepime to Macrobid on day 8 of abx therapy, with discontinuation on day 10 of treatment At discharge the patient was recommended to complete a course of IV vancomycin for at minimum 6 weeks. Recommend weekly BMPs to follow kidney function and Vancomycin troughs with a goal level of 15. The patient was also instructed to continue taking 40mg Lasix BID which is equivalent to half of her previous home dose. Discharge discussed with: patient, nurse, social work, case management, design studio consultant - Time Spent with Patient Total time spent providing and/or coordinating discharge services: - Discharge Medications Prescriptions: Furosemide [Lasix] 40 mg PO BID 30 Days #60 tablet Home Medications: RX: Apixaban [Eliquis] 5 mg PO BID tablet 07/02/15 [Rx] RX: Folic Acid 1 tab PO DAILY #30 tablet 11/14/15 [Rx] RX: Acetaminophen [Non-Aspirin] 650 mg PO HS 05/29/16 [History] RX: Allopurinol [Zyloprim 300 MG] 300 mg PO QAM 09/17/16 [History] RX: Ferrous Sulfate [Iron] 325 mg PO DAILY 09/17/16 [History] RX: GlipiZIDE XL (24 HR) [Glucotrol XL] 20 mg PO 0800 09/17/16 [History] RX: Atorvastatin [Lipitor] 40 mg PO HS 03/24/17 [History] RX: Cholecalciferol (Vitamin D3) [Vitamin D3] 50,000 unit PO Q14D 03/24/17 [ History] RX: Bisacodyl [Dulcolax] 10 mg PO DAILY PRN 09/22/17 [History] RX: Ipratropium/Albuterol Neb [Duoneb] 3 ml IH QID PRN 09/22/17 [History] RX: Allopurinol [Zyloprim 100 MG] 100 mg PO HS 03/29/18 [History] RX: Spironolactone [Aldactone] 25 mg PO DAILY 03/29/18 [History] RX: Escitalopram Oxalate 5 mg PO DAILY 07/29/18 [History] RX: Gabapentin [Neurontin] 100 mg PO TID 07/29/18 [History] RX: Insulin DETEMIR [Levemir Flextouch] 30 unit SQ HS 07/29/18 [History] RX: Insulin LISPRO [HumaLOG] 2 - 8 units SQ TIDWM 07/29/18 [History] RX: L. Acidophilus/Pectin, [place] [Acidophilus Capsule] 1 cap PO BID 07/29/18 [History] RX: Levothyroxine Sodium 88 mcg PO DAILY 07/29/18 [History] RX: Metoprolol Succinate [Toprol Xl] 50 mg PO DAILY 07/29/18 [History] RX: Potassium Chloride [K-Tab ER] 10 meq PO DAILY 07/29/18 [History] RX: amLODIPine [Norvasc] 5 mg PO DAILY 07/29/18 [History] Furosemide [Lasix] 40 mg PO BID 30 Days #60 tablet 08/09/18 [Rx] Allergies/Adverse Reactions: Allergy/AdvReac Type Severity Reaction Status Date / Time Penicillins [PCN] Allergy Rash Verified 07/29/18 13:41 Date of admission: 07/29/18 15:54 Primary care physician: PCP NONE Consults: 07/29/18 04:12 Consult to Physician [CONS] Routine Consulting Provider: Lito Rg Reason for Consult: DFU; toe ulcer Call Completed: No 07/30/18 15:14 Consult to Vascular Surgery [CONS] Routine Consulting Provider: Vascular Surgery [place] Reason for Consult: Peripheral vascular disease with osteomyelitis of right toe Call Completed: Yes 08/01/18 07:53 Consult to Occupational Therapy [CONS] Routine Comment: Evaluate, develop and implement POC Reason for Consult: mobilization needs Does patient have active BEDREST order?: No Is patient medically & hemodynamically stable?: Yes Patient assessed for mobility or mobilized this visit?: No Consult to Physical Therapy [CONS] Routine Comment: Evaluate, develop and implement POC Reason for Consult: mobilization needs Does patient have active BEDREST order?: No Is patient medically & hemodynamically stable?: Yes Patient assessed for mobility or mobilized this visit?: No 08/06/18 12:34 Consult to Invasive Line Access Team [CONS] Routine Reason for Consult: Picc Line Insertion Line Type: PICC 08/07/18 16:29 Consult to Oncology Hematology [CONS] Routine Consulting Provider: Gisela Bhatt Reason for Consult: Chest CT changes and new hypoattenuated are on left lobe of the liver Time Notified: 16:34 Call Completed: Yes Discharging clinician: Gorge Marino - Constitutional Vitals: Temp Pulse Resp BP Pulse Ox 98.7 F 92 17 122/73 90 08/09/18 07:18 08/09/18 07:18 08/09/18 07:18 08/09/18 07:18 08/09/18 07:40 General appearance: Present: cooperative, A&O X 3, pleasant, no acute distress, answers questions appropriately Exam: General: obese female in no acute distress Head: normocephalic and atraumatic Eyes: PERRL, EOMI, sclera anicteric, conjunctiva pink Neck: supple, trachea midline Lungs: grossly diminished breath sounds. no wheezes, rales or rhonchi. non- labored breathing on room air. Heart: RRR +S1 +S2 no murmurs, clicks, or rubs appreciated GI: abdomen soft, non-tender, non-distended. normoactive bowel sounds Extremities: warm, dressings in place on right heel and right calf with air boot in place. BKA on the left. Radial pulses palpable and symmetrical. no cyanosis. Trace pitting edema of the R leg, difficult to assess edema of L leg. Neuro: A&Ox3. cooperative with exam. no focal deficits. no speech difficulty or abnormality Skin: warm, dry, intact. - Patient Status Disposition: Transfer SNF Condition: Fair Functional capacity at discharge: bed bound Overall status at discharge: patient is progressing back to baseline - Discharge Instructions Follow Up With: Monisha Madison CNP [Advanced Practice Nurse] - 08/26/18 1:45 pm Lito Kyle DPM [Partnered Physician] - NONE,PCP [Primary Care Provider] - (Patient is from [facility] no PCP appointment is needed) Maykel Crandall MD [Partnered Physician] - 08/23/18 9:00 am (This appointment is in [place]) - Diet and Activity Activity: as per physical therapy, increase activity as tolerated, resume usual activities as tolerated Diet: diabetic diet <Chantelle George - Last Filed: 08/10/18 22:02> Date of Encounter: 08/10/18 - Discharge Diagnosis (1) BRET (acute kidney injury) Status: Resolved (2) CAD (coronary artery disease) Status: Chronic Qualifiers: Coronary Disease-Associated Artery/Lesion type: [place] artery [place] vs. transplanted heart: [place] heart Associated angina: without angina Qualified Code(s): I25.10 - Atherosclerotic heart disease of [place] coronary artery without angina pectoris (3) Peripheral vascular disease Status: Chronic (4) Abnormal CT scan, chest Status: Acute (5) Diabetes mellitus, type 2 Status: Chronic Qualifiers: Diabetes mellitus mcc insulin use: with terminal superintendent use Diabetes mellitus complication status: with circulatory complication Diabetes mellitus complication detail: with other circulatory complications Qualified Code(s): E11.59 - Type 2 diabetes mellitus with other circulatory complications; Z79.4 - USP (current) use of insulin (6) Toe ulcer due to DM Status: Acute Qualifiers: Diabetes mellitus type: type 2 Laterality: right Non-pressure ulcer stage: unspecified non-pressure ulcer stage Qualified Code(s): E11.621 - Type 2 diabetes mellitus with foot ulcer; L97.519 - Non-pressure chronic ulcer of other part of right foot with unspecified severity (7) Osteomyelitis Status: Acute Qualifiers: Osteomyelitis type: unspecified type Osteomyelitis location: foot Laterality: right Qualified Code(s): M86.9 - Osteomyelitis, unspecified (8) Asymptomatic bacteriuria Status: Acute (9) Liver lesion, left lobe Status: Acute (10) Pressure injury of deep tissue of right heel Status: Acute (11) Altered mental status, unspecified Status: Resolved Qualifiers: Altered mental status type: unspecified Qualified Code(s): R41.82 - Altered mental status, unspecified (12) Severe obesity Status: Chronic (13) Anemia Status: Acute Qualifiers: Anemia type: unspecified type Qualified Code(s): D64.9 - Anemia, unspecified (14) Fluid overload Status: Acute Qualifiers: Hypervolemia type: unspecified Qualified Code(s): E87.70 - Fluid overload, unspecified Hospital course: Ms. Armenta is a 68 year old female - Time Spent with Patient Total time spent providing and/or coordinating discharge services: Date of admission: 07/29/18 15:54 Primary care physician: PCP NONE Consults: 07/29/18 04:12 Consult to Physician [CONS] Routine Consulting Provider: Lito Rg Reason for Consult: DFU; toe ulcer Call Completed: No 07/30/18 15:14 Consult to Vascular Surgery [CONS] Routine Consulting Provider: Vascular Surgery [place] Reason for Consult: Peripheral vascular disease with osteomyelitis of right toe Call Completed: Yes 08/01/18 07:53 Consult to Occupational Therapy [CONS] Routine Comment: Evaluate, develop and implement POC Reason for Consult: mobilization needs Does patient have active BEDREST order?: No Is patient medically & hemodynamically stable?: Yes Patient assessed for mobility or mobilized this visit?: No Consult to Physical Therapy [CONS] Routine Comment: Evaluate, develop and implement POC Reason for Consult: mobilization needs Does patient have active BEDREST order?: No Is patient medically & hemodynamically stable?: Yes Patient assessed for mobility or mobilized this visit?: No 08/06/18 12:34 Consult to Invasive Line Access Team [CONS] Routine Reason for Consult: Picc Line Insertion Line Type: PICC 08/07/18 16:29 Consult to Oncology Hematology [CONS] Routine Consulting Provider: Gisela Bhatt Reason for Consult: Chest CT changes and new hypoattenuated are on left lobe of the liver Time Notified: 16:34 Call Completed: Yes - Constitutional Vitals: Temp Pulse Resp BP Pulse Ox 97.8 F 130 20 130/70 92 08/09/18 15:15 08/09/18 15:15 08/09/18 15:15 08/09/18 15:15 08/09/18 14:52 - Attending Attestation I examined this patient and my medical decision-making was reviewed with the Resident Physician. I agree with the documented findings, disposition and treatment plan as described except to the extent set forth below.
[2018-08-09] MEDS ORDERED: Insulin LISPRO 300 UNITS/3 ML VIAL SQ SCH ×2 (11:30→21:00)
--- NOTE | 2018-08-09 15:10 | Physician Discharge Referral ---
ExtendedCare Referral Info Transfer To: [facility] and Care Provider in Charge after Transfer: PCP Institutional Level of Care: Skilled - Diagnosis (1) Fluid overload Priority: Secondary Status: Acute (2) Pressure injury of deep tissue of right heel Priority: Secondary Status: Acute (3) Abnormal CT scan, chest Priority: Secondary Status: Acute (4) Altered mental status, unspecified Priority: Secondary Status: Resolved (5) Anemia Priority: Secondary Status: Acute (6) Toe ulcer due to DM Priority: Secondary Status: Acute (7) Osteomyelitis Priority: Primary Status: Acute (8) BRET (acute kidney injury) Priority: Secondary Status: Resolved (9) Asymptomatic bacteriuria Priority: Secondary Status: Acute (10) Peripheral vascular disease Priority: Secondary Status: Chronic (11) Diabetes mellitus, type 2 Priority: Secondary Status: Chronic (12) CAD (coronary artery disease) Priority: Secondary Status: Chronic (13) Liver lesion, left lobe Priority: Secondary Status: Acute (14) Severe obesity Priority: Secondary Status: Chronic Prognosis: Fair Aware of Diagnosis: Patient Aware of Prognosis: Patient - Transfer Medications Prescriptions: Furosemide [Lasix] 40 mg PO BID 30 Days #60 tablet Home Medications: Apixaban [Eliquis] 5 mg PO BID tablet 07/02/15 [Rx] Folic Acid 1 tab PO DAILY #30 tablet 11/14/15 [Rx] Acetaminophen [Non-Aspirin] 650 mg PO HS 05/29/16 [History] Allopurinol [Zyloprim 300 MG] 300 mg PO QAM 09/17/16 [History] Ferrous Sulfate [Iron] 325 mg PO DAILY 09/17/16 [History] GlipiZIDE XL (24 HR) [Glucotrol XL] 20 mg PO 0800 09/17/16 [History] Atorvastatin [Lipitor] 40 mg PO HS 03/24/17 [History] Cholecalciferol (Vitamin D3) [Vitamin D3] 50,000 unit PO Q14D 03/24/17 [History] Bisacodyl [Dulcolax] 10 mg PO DAILY PRN 09/22/17 [History] Ipratropium/Albuterol Neb [Duoneb] 3 ml IH QID PRN 09/22/17 [History] Allopurinol [Zyloprim 100 MG] 100 mg PO HS 03/29/18 [History] Spironolactone [Aldactone] 25 mg PO DAILY 03/29/18 [History] Escitalopram Oxalate 5 mg PO DAILY 07/29/18 [History] Gabapentin [Neurontin] 100 mg PO TID 07/29/18 [History] Insulin DETEMIR [Levemir Flextouch] 30 unit SQ HS 07/29/18 [History] Insulin LISPRO [HumaLOG] 2 - 8 units SQ TIDWM 07/29/18 [History] L. Acidophilus/Pectin, [place] [Acidophilus Capsule] 1 cap PO BID 07/29/18 [History] Levothyroxine Sodium 88 mcg PO DAILY 07/29/18 [History] Metoprolol Succinate [Toprol Xl] 50 mg PO DAILY 07/29/18 [History] Potassium Chloride [K-Tab ER] 10 meq PO DAILY 07/29/18 [History] amLODIPine [Norvasc] 5 mg PO DAILY 07/29/18 [History] Furosemide [Lasix] 40 mg PO BID 30 Days #60 tablet 08/09/18 [Rx] Allergies/Adverse Reactions: Allergy/AdvReac Type Severity Reaction Status Date / Time Penicillins [PCN] Allergy Rash Verified 07/29/18 13:41 - Respiratory Orders Smoking Cessation: Smoking cessation has been advised. For more information, call the [place] Tobacco Quit Line at 4-151-CWAY-NOW. - Lab Orders Lab Orders: Other (include drug levels w/frequency) (Vanc trough (goal level of 15) in 2 days BMP and Vancomycin trough 1 per week, next (together on 08/16)) - Ancillary Orders May use pressure relief devices daily prn - Advance Directives Code Status: Full Code - Mobility Orders Bedrest - Rehabiliation Orders Rehab Potential: Fair Rehab Orders: ROM Exercises, Evaluation for Physical Therapy, Evaluation for Occupational Therapy, Evaluation for Speech Therapy - Treatments Skin tear care topically daily PRN per policy - Diet Orders No Concentrated Sweets, Cardiac CERTIFICATION: I certify that the transfer of the above named patient to an Extended Care Facility is necessary for the continuing treatment of the diagnosis listed. The above information is true and accurate reflection of patient's current condition. Confidential - Redisclosure prohibited without a patient's written consent.
[2018-08-09 15:20] VITALS: BP 130/70
== END 2018-08-09 16:27 | DRG 853 ==
LOC: 3ANU → SUATTDRO 07-29 02:16 → 2NNU 08-03 14:31 → 2ANU 08-07 11:52
PROVIDERS: ADMIT Pediatrics; ATTEND Student in an Organized Health Care Education/Training Program